=== PATIENT | female | born 1990 | race Caucasian/White ===

== ENCOUNTER 2021-08-27 15:24 | Outpatient (CLI) | payer MEDICAID, SELFPAY ==
[2021-08-27 17:20] LABS: HCG Quant, Pregnancy 6239 mIU/mL (1-3)
[2021-08-27 17:37] LABS: FREE T4 0.64 ng/dL (0.76-1.46)
== END 2021-08-27 15:25 | disposition home or self-care (01) ==
LOC: LBO 15:24
PROVIDERS: Visit Provider Nurse Practitioner Women's Health
DX: O20.9 Hemorrhage in early pregnancy, unspecified (principal); E06.3 Autoimmune thyroiditis
CPT/HCPCS: 36415; 84439; 84443; 84702

== ENCOUNTER 2021-08-29 12:44 | Emergency (ER) | payer MEDICAID, SELFPAY ==
[2021-08-29 12:51] VITALS: BP 128/81; PULSE 78; RESP 16; TEMP 36.5; O2SAT 98
--- NOTE | 2021-08-29 13:00 | DI.US_ITS ---
Exam(s) US OB TRANSVAGINAL EXAM: US OB TRANSVAGINAL INDICATION: 8 wk GA, pelvic pain. COMPARISON: No exams were available for comparison TECHNIQUE: Transabdominal and transvaginal pelvic ultrasound were FINDINGS: There is intrauterine gestational sac contains a 3 millimeter yolk sac and pole exhibiting hughes n-rump length 3.6 millimeters correspond to 6 weeks. heart rate was recorded at 102 BPM. No evidence of obvious subchorionic hemorrhage. Maternal ovaries appear unremarkable. There is no fluid in the cul-de-sac. IMPRESSION: Viable intrauterine gestation as described above, approximately 6 weeks gestational age.
[2021-08-29 13:19] LABS: Abs Immature Grans 0.08 10^3/uL (0.0-0.06); Absolute Basophil Count 0.04 10^3/uL (0.0-0.2); Absolute Eosinophil Count 0.01 10^3/uL (0.0-0.7); Absolute Lymphocyte Count 1.84 10^3/uL (1.2-3.4); Absolute Monocyte Count 0.55 10^3/uL (0.1-0.8); Absolute Neutrophil Count 5.58 10^3/uL (1.2-6.7); Basophils % 0.5; Eosinophils % 0.1; HCT 39.5 % (36.0-46.0); HGB 13.9 g/dL (11.2-15.7); Lymphocytes % 22.7; MCH 33.1 pg (27.0-33.0); MCHC 35.2 % (32.0-36.0); MPV 10.2 fL (8.0-11.0); Monocytes % 6.8; Neutrophils % 68.9; Nucleated RBC 0 %; Platelet Count 256 10^3/uL (130-400); RDW 11.6 % (11.7-14.6); RDW-SD 40.1 fL
[2021-08-29 14:06] LABS: HCG Quant, Pregnancy 9816 mIU/mL (1-3)
--- NOTE | 2021-08-29 14:35 | ED.GENADUL_ITS ---
Discharge Plan Disposition Patient Disposition: HOME Condition: Stable Discharge Details Clinical Impression: Threatened miscarriage in early Primary Care Provider: None,None ED Provider: Radha Strauss Home Meds and New Rx's Prescriptions: Continued diazepam [Valium] 5 mg tablet 5 mg PO TID PRNRF: 0 prenat.vits,parth,vqr-biak-eagty Tablet 1 tab PO DAILY RF: 0 acyclovir 800 mg tablet 800 mg PO DAILY Qty: 90 RF: 3 xrtssturdo-jbvuzhhcfrvbz-zipg [Esgic] 50-325-40 mg capsule 1 cap PO Q6H PRN (Reason: pain) Qty: 14 RF: 1 levothyroxine 50 mcg tablet 50 mcg PO DAILY Qty: 90 RF: 3 Latuda 40 mg tablet 40 mg PO DAILY Qty: 30 RF: 0 lamotrigine 150 mg tablet 150 mg PO DAILY Qty: 30 RF: 0 Discharge Instructions Instructions: Threatened Miscarriage (ED) Additional Instructions: Please return immediately to the emergency department if you develop any new or worsening symptoms, if your condition does not improve as expected, or if you become otherwise concerned. It is extremely important that you call soon as possible to make an appointment to be seen in follow-up for this visit by your slumber room attendant. Referrals: Padmini Beard MD [MD [facility] STAFF PHYSICIAN] - Medical Decision Making More Denny is a 31-year-old woman with a history of Sarah's thyroiditis, bipolar disorder, anxiety, at approximately 8 weeks gestational age by dates presenting to emergency department with abdominal pain, lower back pain, and vaginal bleeding since 08/23/2021. On exam patient is well and nontoxic-appearing. There is no abdominal or pelvic tenderness to palpation. Bedside POCUS FAST exam shows no free fluid, transabdominal ultrasound does show gestational sac with yolk sac noted in uterus. Concern for threatened , doubt ectopic given bedside ultrasound findings. Plan for screening labs, pelvic ultrasound. Exam/history at this time is not consistent with nonobstetric related acute emergent intra-abdominal process, urinary tract infection, sepsis. Labs reviewed, hemoglobin 13.9, blood type O+, beta hCG 9816. I discussed patient presentation results with Dr. Beard of OB, who recommends outpatient follow-up in the next 1 to 2 days with obstetrics, no further immediate recommendations. I had a discussion with Patient regarding return to emergency department precautions, home care, and importance of outpatient follow-up. Pt verbalizes understanding of the plan and is amenable. Patient discharged to home with clear plan for outpatient follow-up. All questions were answered. Disposition decision was made weighing the risks and benefits of hospitalization versus outpatient treatment, the risk for further decompensation, and the patient's wishes. Medical Records Medical records reviewed: Yes I reviewed the patient's medical records. Imaging Data Radiologic Study: Attestation: I personally reviewed and interpreted this imaging study as follows: Radiologist's impression: EXAM: US OB TRANSVAGINAL INDICATION: 8 wk GA, pelvic pain. COMPARISON: No exams were available for comparison TECHNIQUE: Transabdominal and transvaginal pelvic ultrasound were FINDINGS: There is intrauterine gestational sac contains a 3 millimeter yolk sac and pole exhibiting crown-rump length 3.6 millimeters correspond to 6 weeks. heart rate was recorded at 102 BPM. No evidence of obvious subchorionic hemorrhage. Maternal ovaries appear unremarkable. There is no fluid in the cul-de-sac. IMPRESSION: Viable intrauterine gestation as described above, approximately 6 weeks gestational age. Lab Data Lab results reviewed: Yes I reviewed the patient's lab results. Labs: Laboratory Tests Range/Units 08/29/21 08/29/21 08/29/21 13:12 13:12 13:12 WBC (4.4-10.8) 10^3/uL 8.10 RBC (3.93-5.22) 10^6/uL 4.20 Hgb (11.2-15.7) g/dL 13.9 Hct (36.0-46.0) % 39.5 MCV (80-95) fL 94.0 MCH (27.0-33.0) pg 33.1 H MCHC (32.0-36.0) % 35.2 RDW (11.7-14.6) % 11.6 L Plt Count (130-400) 10^3/uL 256 MPV (8.0-11.0) fL 10.2 Immature Gran % 1.0 Neutrophils % 68.9 Lymphocytes % 22.7 Monocytes % 6.8 Eosinophils % 0.1 Basophils % 0.5 Nucleated RBC % % 0 Absolute Neutrophils (1.2-6.7) 10^3/uL 5.58 Absolute Lymphocytes (1.2-3.4) 10^3/uL 1.84 Absolute Monocytes (0.1-0.8) 10^3/uL 0.55 Absolute Eosinophils (0.0-0.7) 10^3/uL 0.01 Absolute Basophils (0.0-0.2) 10^3/uL 0.04 Beta HCG, Quant (1-3) mIU/mL 9816 H Patient ABO/Rh O Positive Antibody Screen NEGATIVE HPI General Mode of arrival: ambulatory . Date/Time Provider Initiated Documentation: 08/29/21 12:44 . Limitations to Documentation: no limitations . Information obtained by: patient, family, RN notes reviewed and old records reviewed . HPI Narrative: More Denny is a 31-year-old woman with a history of Sarah's thyroiditis, bipolar disorder, anxiety, at approximately 8 weeks gestational age by dates presenting to emergency department with abdominal pain. Patient reports that she has had spotting, lower back pain, and lower abdominal pain since 08/23/2021. Patient saw OB on 08/27/2021, where she had beta hCG (level was 6239). Patient has not had an ultrasound. Patient reports that pain has persisted, and she is passing very small clots. She reports that bleeding is still white. Patient reports that she is unsure if pain is worsening, but it has not decreased at all. She denies any other pain, vomiting, diarrhea, numbness, weakness, fever, shortness of breath, cough, rash. Patient was recently started on levothyroxine for hypothyroidism. Related Data Home Medications Medication Instructions Recorded Confirmed acyclovir 800 mg tablet 800 mg PO DAILY #90 tab 08/27/21 08/27/21 kebsodizdb-cecudjxfvufcu-fjgxengr 1 cap PO Q6H PRN #14 cap 08/27/21 08/29/21 50 mg-325 mg-40 mg capsule diazepam 5 mg tablet 5 mg PO TID PRN 08/27/21 08/29/21 prenat.vits,parth,fdd-pkwt-smaiu 1 tab PO DAILY 08/27/21 08/29/21 lamotrigine 150 mg tablet 150 mg PO DAILY #30 tab 08/28/21 08/29/21 levothyroxine 50 mcg tablet 50 mcg PO DAILY #90 tab 08/28/21 08/29/21 lurasidone 40 mg tablet 40 mg PO DAILY #30 tab 08/28/21 08/29/21 Previous Rx's Medication Instructions Recorded acyclovir 800 mg tablet 800 mg PO DAILY #90 tab 08/27/21 yujsowdqwm-crtkubhzhnchr-hvzltlaz 1 cap PO Q6H PRN #14 cap 08/27/21 50 mg-325 mg-40 mg capsule lamotrigine 150 mg tablet 150 mg PO DAILY #30 tab 08/28/21 levothyroxine 50 mcg tablet 50 mcg PO DAILY #90 tab 08/28/21 lurasidone 40 mg tablet 40 mg PO DAILY #30 tab 08/28/21 Allergies Allergy/AdvReac Type Severity Reaction Status Date / Time No Known Allergies Allergy Verified 08/29/21 12:58 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 Review of Systems Narrative: Constitutional: denies fevers Eyes: denies eye pain ENT: denies ear pain, dental pain, sore throat Cardiovascular: denies chest pain Respiratory: denies SOB, cough GI: denies vomiting, diarrhea, reports lower abdominal cramping : denies flank pain, dysuria, reports vaginal bleeding MSK: denies neck pain, arthralgias, myalgias, reports lower back pain Skin: denies rash Neuro: denies headaches, numbness, weakness PFSH All Active Problems (Updated 08/29/21 @ 14:29 by Radha Strauss MD) Threatened miscarriage in early (Acute) Early stage of (Acute) Anxiety (Chronic) Bipolar I disorder (Acute) Sarah's thyroiditis (Acute) Medical History History of abnormal cervical Pap smear Surgical History H/O dilation and curettage Social History Smoking/Tobacco Use Status: Current every day Tobacco Type: e-cigarettes Quit status: considering quitting Smoking risk assessment performed?: Yes Alcohol Intake: never Drug use: Occasionally Substance use type: marijuana Sexually active: Yes Do you think of yourself as: straight/heterosexual Current gender identity: female Female Reproductive History Menstrual control method: none History History 4 Para 3 Hx # Term Pregnancies Multiple births Hx # Pregnancies Ectopic pregnancies AB induced 1 Hx Number of Living Children AB spontaneous Exam Narrative Exam Narrative: Constitutional: well and mqa-qrfnq-ceqtlkrhh, pleasant, conversing normally HENT: head atraumatic/normocephalic/normal inspection, mucous membranes moist Eyes: conjunctiva normal, sclera normal, pupils 3mm b/l Neck: no stridor, normal ROM, trachea midline Resp: normal work of breathing, speaking in full sentences Cardio: normal rate, normal rhythm, no murmur appreciated GI: abdomen soft, non-tender, non-distended Skin: warm, dry, normal color, no rash Neuro: alert, not altered, grossly non-focal, normal tone Ext: no edema Psych: normal mood, normal affect, normal behavior Course Vital Signs Vital signs: Vital Signs Temperature 36.5 C 08/29/21 12:51 Pulse 78 08/29/21 12:51 Respiratory Rate 16 08/29/21 12:51 Blood Pressure 128/81 08/29/21 12:51 Pulse Oximetry 98 08/29/21 12:51 Temperature 36.5 C 08/29/21 12:51 Temperature Source Skin 08/29/21 12:51 Pulse 78 08/29/21 12:51 Respiratory Rate 16 08/29/21 12:51 Respiratory Effort 08/29/21 12:51 Blood Pressure 128/81 08/29/21 12:51 Blood Pressure Position Supine 08/29/21 12:51 Pulse Oximetry 98 08/29/21 12:51 Oxygen Delivery Method Room Air 08/29/21 12:51 Oxygen Flow Rate 0 08/29/21 12:51 Pain Level 7 08/29/21 12:51 Lab/Test Results Lab/Test Results: Laboratory Tests Range/Units 08/29/21 08/29/21 08/29/21 13:12 13:12 13:12 WBC (4.4-10.8) 10^3/uL 8.10 RBC (3.93-5.22) 10^6/uL 4.20 Hgb (11.2-15.7) g/dL 13.9 Hct (36.0-46.0) % 39.5 MCV (80-95) fL 94.0 MCH (27.0-33.0) pg 33.1 H MCHC (32.0-36.0) % 35.2 RDW (11.7-14.6) % 11.6 L Plt Count (130-400) 10^3/uL 256 MPV (8.0-11.0) fL 10.2 Immature Gran % 1.0 Neutrophils % 68.9 Lymphocytes % 22.7 Monocytes % 6.8 Eosinophils % 0.1 Basophils % 0.5 Nucleated RBC % % 0 Absolute Neutrophils (1.2-6.7) 10^3/uL 5.58 Absolute Lymphocytes (1.2-3.4) 10^3/uL 1.84 Absolute Monocytes (0.1-0.8) 10^3/uL 0.55 Absolute Eosinophils (0.0-0.7) 10^3/uL 0.01 Absolute Basophils (0.0-0.2) 10^3/uL 0.04 Beta HCG, Quant (1-3) mIU/mL 9816 H Patient ABO/Rh O Positive Antibody Screen NEGATIVE
[2021-08-29 14:45] VITALS: BP 128/81; PULSE 78; RESP 16; TEMP 36.5; O2SAT 98
== END 2021-08-29 14:47 | disposition home or self-care (01) ==
PROVIDERS: Emergency Provider Student in an Organized Health Care Education/Training Program
DX: O20.0 Threatened abortion (principal); Z3A.08 8 weeks gestation of pregnancy
CPT/HCPCS: 86850; 86900; 86901; 99284; 76817; 84702; 85025; 99283

== ENCOUNTER 2021-08-31 09:52 | Outpatient (CLI) | payer MEDICAID, SELFPAY ==
[2021-08-31 10:41] LABS: HCG Quant, Pregnancy 15707 mIU/mL (1-3)
== END 2021-08-31 09:53 | disposition home or self-care (01) ==
LOC: LBO 09:52
PROVIDERS: Visit Provider Obstetrics & Gynecology
DX: O20.0 Threatened abortion (principal)
CPT/HCPCS: 36415; 84702

== ENCOUNTER 2021-09-03 10:12 | Outpatient (CLI) | payer MEDICAID, SELFPAY | END 2021-09-03 10:13 | disposition home or self-care (01) | PROVIDERS: Visit Provider Obstetrics & Gynecology | DX: O26.851 Spotting complicating pregnancy, first trimester (principal); Z3A.10 10 weeks gestation of pregnancy | CPT/HCPCS: 36415; 84702 ==

== ENCOUNTER 2021-10-09 04:02 | Outpatient (CLI) | payer MEDICAID, SELFPAY ==
[2021-10-09 11:31] LABS: Kit/Specimen SENT
[2021-10-09 12:01] LABS: Abs Immature Grans 0.07 10^3/uL (0.0-0.06); Absolute Basophil Count 0.03 10^3/uL (0.0-0.2); Absolute Eosinophil Count 0.01 10^3/uL (0.0-0.7); Absolute Lymphocyte Count 1.77 10^3/uL (1.2-3.4); Absolute Neutrophil Count 5.75 10^3/uL (1.2-6.7); Basophils % 0.4; Eosinophils % 0.1; HCT 38.2 % (36.0-46.0); HGB 13.6 g/dL (11.2-15.7); Immature Grans % 0.8; Lymphocytes % 21.2; MCH 32.6 pg (27.0-33.0); MCHC 35.6 % (32.0-36.0); MCV 91.6 fL (80-95); MPV 10.7 fL (8.0-11.0); Monocytes % 8.4; Neutrophils % 69.1; Nucleated RBC 0 %; Platelet Count 234 10^3/uL (130-400); RBC 4.17 10^6/uL (3.93-5.22); RDW 11.7 % (11.7-14.6); WBC 8.33 10^3/uL (4.4-10.8)
[2021-10-09 12:02] LABS: Glucose,1 Hr (Glucola) 92 mg/dL (80-140)
[2021-10-09 13:34] LABS: FREE T4 0.81 ng/dL (0.76-1.46); TSH 4.65 uIU/mL (0.36-3.74)
[2021-10-10 09:45] LABS: Hepatitis B Surface Ag Negative (Negative)
[2021-10-10 09:57] LABS: Hepatitis C Ab w Rflx HCV PCR Negative (Negative)
[2021-10-10 10:12] LABS: HIV-1/2 Ag & Ab Screen Negative (Negative)
[2021-10-10 10:45] LABS: Rubella IgG Ab (UVM) Positive (See Note); Varicella IgG Antibody Positive (See Note)
[2021-10-16 17:03] LABS: Result Summary NEGATIVE; Specimen WB Whole Blood
[2021-10-24 15:10] LABS: Syphilis IgG w/Reflex Nonreactive (Nonreactive)
== END 2021-10-09 04:03 | disposition home or self-care (01) ==
LOC: LBO 04:02
PROVIDERS: Advanced Practice Midwife; Visit Provider Advanced Practice Midwife
DX: Z34.91 Encounter for supervision of normal pregnancy, unspecified, first trimester
CPT/HCPCS: 82950; 86787; 86803; 86850; 86900; 86901; 87340; 87389; 81220; 84439; 84443; 85025; 86762; 86780

== ENCOUNTER 2021-10-09 11:59 | Outpatient (REF) | payer MEDICAID, SELFPAY ==
--- NOTE | 2021-10-09 10:30 | PAPFT_PTH ---
PATIENT: More Denny LOC: [facility] U#:[id number] AGE/SX: 31/F ROOM: RE10/09/[address]: Karen Ryan CNM : 1990 BED: DIS: 10/09/2021 SPEC #: [id number] RECD: 10/09/21 12:34 STATUS: ANITA REMeg #: [id number] JESUS MANUEL: 10/09/21 10:[address]: Karen Ryan DEPT: [facility] Cytology RECD BY: Vielka Ya ENTERED: 10/09/21 12:34 SP TYPE: PAPFT OT DR: None Tissues: 1 - CX/ENDOCX FOR PAP SMEARS Procedures: PAP THIN PREP/UVM Screening HPV DNA PROBE Comments: [id number]
[2021-10-09 15:48] LABS: *AMPHETAMINES SCREEN URINE Negative (Negative); *BARBITURATES SCREEN URINE Negative (Negative); *BENZODIAZEPINES SCREEN URINE Negative (Negative); Cannabinoids THC Negative (Negative); Cocaine Screen,Urine Negative (Negative); METHADONE URINE SCREEN Negative (Negative); OPIATES URINE SCREEN Negative (Negative); Tricyclic Antidepressants Negative (Negative)
[2021-10-11 07:48] LABS: Chlamydia Result Negative (Negative); GC Result Negative (Negative)
[2021-10-13 15:30] LABS: Buprenorphine Negative ng/mL (Cutoff: 5.0); Norbuprenorphine Negative ng/mL (Cutoff: 2.5)
== END 2021-10-09 12:00 | disposition home or self-care (01) ==
LOC: LBN 11:59
PROVIDERS: Advanced Practice Midwife; Visit Provider Advanced Practice Midwife
DX: Z34.91 Encounter for supervision of normal pregnancy, unspecified, first trimester; Z12.4 Encounter for screening for malignant neoplasm of cervix; Z11.51 Encounter for screening for human papillomavirus (HPV)
CPT/HCPCS: 80307; 87491; 87591; 88142; 87086; 87480; 87510; 87624; 87660

== ENCOUNTER 2021-11-06 03:45 | Outpatient (CLI) | payer MEDICAID, SELFPAY ==
[2021-11-06 17:30] LABS: Thyroperoxidase Antibody >1300 U/mL (<=60)
[2021-11-07 08:38] LABS: Von Willebrand Factor Antigen 103 % (50-185)
[2021-11-07 15:28] LABS: AFP 26.6 ng/mL; GA used in risk estimate Scan estimate; IVF Pregnancy No; Initial or repeat testing Initial testing; Insulin dependent diabetes No; Maternal Weight 229 lbs; Number of Fetuses 1; Physician Phone Number 802-748-7300; Prev Pregnancy w/NTD No; RECOMMENDED FOLLOW UP None.; Results Summary Normal risk
== END 2021-11-06 03:46 | disposition home or self-care (01) ==
PROVIDERS: Advanced Practice Midwife; Visit Provider Advanced Practice Midwife
DX: E06.3 Autoimmune thyroiditis (principal); Z34.92 Encounter for supervision of normal pregnancy, unspecified, second trimester; Z83.2 Family history of diseases of the blood and blood-forming organs and certain disorders involving the immune mechanism
CPT/HCPCS: 36415; 85245; 85246; 82105; 84443; 86376

== ENCOUNTER 2021-12-03 01:52 | Outpatient (CLI) | payer MEDICAID, SELFPAY ==
--- NOTE | 2021-12-03 06:30 | DI.US_ITS ---
Exam(s) US OB 2-3 TRIMESTER W MOD EXAM: US OB 2-3 TRIMESTER W MOD CLINICAL HISTORY: , survey,[id number]. TECHNIQUE: Transabdominal obstetrical ultrasound was performed. COMPARISON: US US OB TRANSVAGINAL from 08/29/2021 FINDINGS: There is a single viable intrauterine gestation with cardiac activity identified-150 BPM. Fetu s is presently in cephalic position. There is normal amount of amniotic fluid. Placenta is mostly a nterior fundal, grade 0-1, with no evidence of placenta previa. The distance between the tip of the placenta and the internal cervical os is 5.4 cm on today's study. There is a marginal placenta cord insertion (1.8 cm) Dating parameters places at approximately 20 weeks and 2 days gestational age, implying BUFFY of April 20, 2022. BPD measures 20 weeks and 2 days Head circumference measures 20 weeks and 0 days Abdominal circumference measures 20 weeks and 3 days Femur length measures 20 weeks and 3 days A three-vessel umbilical cord was identified. It exhibits a somewhat marginal placental insertion (1 .8 cm). Estimated weight is 349 grams (0 pounds 12 ounces). Fetus is at the 95th percentile on the Hadlock scale MORPHOLOGY: A four-chamber cardiac view was obtained. Right and left ventricular outflow tracts were obtained. Satisfactory aortic arch image also obtained. No significant intracranial findings. No cord plexus. No abnormality in the posterior fossa. facial profile was seen. Difficult to visualize the nose and upper lip region. No obvious abnormality the spinal column. stomach and bladder is seen. No obvious hydronephrosis. IMPRESSION: 1. Single viable intrauterine gestation which is approximately 20 weeks and 2 days gestational age by ultrasound dating, implying BUFFY of April 20, 2022. Fetus is presently at the 95th percentile 2. No significant anomalies evident. 3. Fundal placenta. No previa. DATA REPOSITORY:
== END 2021-12-03 02:12 ==
PROVIDERS: Visit Provider Advanced Practice Midwife
DX: Z34.92 Encounter for supervision of normal pregnancy, unspecified, second trimester (principal); Z3A.20 20 weeks gestation of pregnancy
CPT/HCPCS: 76805

== ENCOUNTER 2021-12-10 01:06 | Outpatient (CLI) | payer MEDICAID, SELFPAY ==
--- NOTE | 2021-12-10 07:00 | DI.US_ITS ---
Exam(s) US OB F/U FACIAL/LVOT/RVOT EXAM: US OB F/U FACIAL/LVOT/RVOT CLINICAL HISTORY: f/u low lying placenta,nose,lips,4 chamber heart. COMPARISON: US US OB 2-3 TRIMESTER W MOD from 12/03/2021 TECHNIQUE: Transabdominal Transvaginal first trimester obstetrical ultrasound performed. FINDINGS: Sonographic images demonstrate a single intrauterine gestation in cephalic position.. Placenta is posterior. Cord insertion measurements to the placenta margin is 1.4 to 1.9 cm he art rate motion is Dopplered at: 155 bpm. RVOT: Unremarkable. LVOT: Unremarkable. nose/lips: Unremarkable. Amniotic fluid: Amount of fluid is visually within normal limits. IMPRESSION: face and heart show no discernible abnormality. Cord insertion at the placenta 1.4-1.9 cm from the placental margin. DATA REPOSITORY:
== END 2021-12-10 01:26 ==
PROVIDERS: Visit Provider Advanced Practice Midwife
DX: O44.42 Low lying placenta NOS or without hemorrhage, second trimester (principal); Z3A.19 19 weeks gestation of pregnancy
CPT/HCPCS: 76815

== ENCOUNTER 2021-12-10 03:47 | Outpatient (CLI) | payer MEDICAID, SELFPAY ==
[2021-12-10 14:58] LABS: FREE T4 0.88 ng/dL (0.76-1.46); TSH 3.73 uIU/mL (0.36-3.74)
[2021-12-10 15:12] LABS: Vitamin D 25 Total 26.4 ng/mL (30-100)
== END 2021-12-10 03:48 | disposition home or self-care (01) ==
LOC: LBO 03:47
PROVIDERS: Visit Provider Advanced Practice Midwife
DX: E06.3 Autoimmune thyroiditis (principal)
CPT/HCPCS: 36415; 82306; 84439; 84443

== ENCOUNTER 2021-12-26 08:33 | Outpatient (CLI) | payer MEDICAID, SELFPAY ==
[2021-12-26 10:10] VITALS: BP 137/87; PULSE 93; RESP 18; TEMP 36.4; O2SAT 97
[2021-12-26 11:20] VITALS: BP 132/82; PULSE 88; RESP 20; TEMP 36.1; O2SAT 94
== END 2021-12-26 08:34 | disposition home or self-care (01) ==
LOC: INF 08:35
PROVIDERS: Visit Provider Family Medicine
DX: U07.1 COVID-19 (principal)
CPT/HCPCS: 96365; 96374; Q0222

== ENCOUNTER 2021-12-29 20:33 | Emergency (ER) | payer MEDICAID, SELFPAY ==
[2021-12-29] VITALS (35 sets, daily range): BP systolic 121–164; BP diastolic 54–91; PULSE 77–103; RESP 14–38; TEMP 36.7; O2SAT 96–100
--- NOTE | 2021-12-29 20:30 | RT.EKG_ITS ---
APPROVED REPORT Exam: Resting ECG Reason for Exam: chest pain Patient Location: E HR:96 bpm ECG Measurements Heart Rate 96 AXIS MD 161 P 22 QRSd 94 QRS 67 QT 363 T -7 QTc 460 Conclusion Sinus rhythm...normal P axis, V-rate 60- 99 Probable left atrial enlargement...P >50mS, <-0.10mV V1 Physician: No STEMI, Q wave and inverted T wave presented in III. No significant ST elevation or depr essions
[2021-12-29 21:13] LABS: Absolute Basophil Count 0.05 10^3/uL (0.0-0.2); Absolute Eosinophil Count 0.01 10^3/uL (0.0-0.7); Absolute Lymphocyte Count 2.45 10^3/uL (1.2-3.4); Absolute Monocyte Count 0.99 10^3/uL (0.1-0.8); Absolute Neutrophil Count 6.41 10^3/uL (1.2-6.7); Basophils % 0.5; Eosinophils % 0.1; HCT 34.2 % (36.0-46.0); HGB 12.1 g/dL (11.2-15.7); Immature Grans % 2.9; MCH 32.8 pg (27.0-33.0); MCHC 35.4 % (32.0-36.0); MCV 92.7 fL (80-95); Monocytes % 9.7; Neutrophils % 62.8; Platelet Count 241 10^3/uL (130-400); RBC 3.69 10^6/uL (3.93-5.22); RDW 11.9 % (11.7-14.6); WBC 10.21 10^3/uL (4.4-10.8)
[2021-12-29] MEDS: Acetaminophen 325 MG TAB 650 MG PO (21:17)
[2021-12-29] MEDS: Normal Saline 1,000 ML 1000 ML IV (21:17)
[2021-12-29] MEDS: MORPHine 4 MG/ML SYR IVP (21:17)
[2021-12-29 21:35] LABS: ALT 14 U/L (14-59); AST 11 U/L (15-37); Albumin 3.1 g/dL (3.4-5.0); Alkaline Phosphatase 56 U/L (46-116); Anion Gap 9.8 mmol/L (3-11); BUN 10 mg/dL (7-18); Bilirubin, Total 0.2 mg/dL (0.2-1.0); CO2 23.2 mmol/L (21.0-32.0); CREATININE 0.6 mg/dL (0.55-1.02); Calcium 8.2 mg/dL (8.5-10.1); Chloride 104 mmol/L (98-107); Glucose 106 mg/dL (74-106); Lipase 108 U/L (73-393); NT-proBNP 25 pg/mL (<300); Potassium 3.5 mmol/L (3.5-5.1); Sodium 137 mmol/L (136-145); Total Protein 6.7 g/dL (6.4-8.2)
[2021-12-29 22:05] LABS: D-Dimer 316 ng/mlFEU (<500)
[2021-12-29 22:18] LABS: Bilirubin Negative (Negative); Blood Negative (Negative); Clarity Clear (Clear); Glucose Negative (Negative); Ketones Negative (Negative); Leukocyte Esterase Negative (Negative); Nitrite Negative (Negative); Specific Gravity 1.015 (1.005-1.025); Urobilinogen 0.2 EU/dL (Up TO 0.2)
--- NOTE | 2021-12-29 22:34 | ED.GENADUL_ITS ---
Discharge Plan Disposition Patient Disposition: HOME Condition: Stable Discharge Details Clinical Impression: Chest pain, Pneumonia Primary Care Provider: Unknown,Unknown ED Provider: Tyrone Laws Home Meds and New Rx's Prescriptions: New azithromycin 250 mg tablet 250 mg PO DAILY 90 Days Qty: 3 0RF Continued mztorlrxel-lxhllpyynqoyy-biwt [Fioricet] 50-300-40 mg capsule 1 cap PO Q8H PRN (Reason: pain) Qty: 14 0RF prenat.vits,parth,tfa-cszb-qhxey Tablet 1 tab PO DAILY 0RF acyclovir 800 mg tablet 800 mg PO DAILY Qty: 90 3RF Latuda 40 mg tablet 40 mg PO DAILY Qty: 30 0RF Rx Instructions: must administer with food (at least 350 calories) lamotrigine 150 mg tablet 150 mg PO DAILY Qty: 30 0RF levothyroxine 50 mcg tablet 100 mcg PO DAILY 0RF albuterol sulfate [ProAir HFA] 90 mcg/actuation HFA aerosol inhaler 2 puff inhalation QID PRN (Reason: shortness of breath or wheezing) Qty: 6.7 4RF Discharge Instructions Instructions: Chest Pain (ED), Pneumonia (ED) Additional Instructions: Take Tylenol as needed for pain Follow-up with your [facility] on Friday Follow-up with your primary care physician on Friday Please return earlier should you have new or worsening complaints repeat blood pressure at you appt this week Discharge Data Discharge Date/Time-TO BE ENTERED AT DEPARTURE: 12/30/21 01:19 Medical Decision Making Patient appears well, her chart is acute Her D-dimer is negative and patient is not hypoxic, tachypneic, or tachycardic Initially blood pressure elevated, this is improved care discussed with landon Lizarraga for office reassessment No proteinuria No indication for CT imaging at this time in fact I think the risk outweighs the benefit I did consider coronary artery disease, however patient is 31 and otherwise fairly healthy with a heart score of 2, will perform 2 troponins given her family history and discharged home for close outpatient follow-up Her chest x-ray shows evidence of bilateral infiltrates, this could be Covid related however we will treat her with azithromycin given the persistence of her symptoms and her negative Covid test 2 days prior to arrival today She does not have medically vaginal bleeding or abdominal pain, FHR [address] Laws pending repeat troponin and EKG at 12 am Medical Records Medical records reviewed: Yes I reviewed the patient's medical records. Lab Data Lab results reviewed: Yes I reviewed the patient's lab results. HPI General Date/Time Provider Initiated Documentation: 12/29/21 21:01 . HPI Narrative: This 31-year-old female who is 23 weeks presents with report of left- sided chest pain that began 1:00 today while she was eating. She states she feels mildly short of breath secondary to inability to take a deep inspiration. She denies any radiation. She denies any fever or chills. She denies any nausea or vomiting. She denies any calf pain or swelling. Denies prior history of similar symptoms in the past. She is 5 para 4. She denies any hemoptysis. She denies any recent flights, surgeries, long drives. She has a history of asthma and presents. Related Data Home Medications Medication Instructions Recorded Confirmed acyclovir 800 mg tablet 800 mg PO DAILY #90 tab 08/27/21 12/29/21 prenat.vits,parth,azk-folp-odnrx 1 tab PO DAILY 08/27/21 12/29/21 lamotrigine 150 mg tablet 150 mg PO DAILY #30 tab 08/28/21 12/29/21 lurasidone 40 mg tablet (Latuda) 40 mg PO DAILY #30 tab 08/28/21 12/29/21 levothyroxine 50 mcg tablet 100 mcg PO DAILY tab 11/06/21 12/29/21 butjyupyms-kkcsjeczcctzp-gghxakwm 1 cap PO Q8H PRN #14 cap 12/05/21 12/29/21 50 mg-300 mg-40 mg capsule (Fioricet) albuterol sulfate 90 mcg/actuation 2 puff INHALATION QID PRN #6.7 g 12/25/21 12/29/21 aerosol inhaler (ProAir HFA) azithromycin 250 mg tablet 250 mg PO DAILY 90 Days #3 tab 12/29/21 Previous Rx's Medication Instructions Recorded acyclovir 800 mg tablet 800 mg PO DAILY #90 tab 08/27/21 lamotrigine 150 mg tablet 150 mg PO DAILY #30 tab 08/28/21 lurasidone 40 mg tablet (Latuda) 40 mg PO DAILY #30 tab 08/28/21 hjvplvyqjy-rdpuipcwqpnwj-fyiqgcrr 1 cap PO Q8H PRN #14 cap 12/05/21 50 mg-300 mg-40 mg capsule (Fioricet) albuterol sulfate 90 mcg/actuation 2 puff INHALATION QID PRN #6.7 g 12/25/21 aerosol inhaler (ProAir HFA) azithromycin 250 mg tablet 250 mg PO DAILY 90 Days #3 tab 12/29/21 Allergies Allergy/AdvReac Type Severity Reaction Status Date / Time No Known Allergies Allergy Verified 12/29/21 20:52 General Stated Complaint: Chest Pain COREY: 2 Review of Systems All systems reviewed & are unremarkable except as noted in HPI and below PFSH All Active Problems (Updated 12/29/21 @ 23:36 by ANGY Ge) Chest pain (Acute) Pneumonia (Acute) COVID-19 affecting in second trimester (Acute) Low lying placenta nos or without hemorrhage, second trimester (Acute) Anti-TPO antibodies present (Acute) 18 weeks gestation of (Acute) History of migraine (Acute) Marijuana smoker (Acute) Family history of von Willebrand disease (Acute) Genital herpes simplex virus (HSV) infection in mother affecting (Acute) (Acute) BMI 33.0-33.9,adult (Acute) Asthma (Chronic) using inhaler PRN. Threatened miscarriage in early (Acute) Anxiety (Chronic) Bipolar I disorder (Acute) Sarah's thyroiditis (Acute) diagnosed 2020 Medical History (Updated 12/29/21 @ 23:36 by ANGY Ge) History of abnormal cervical Pap smear Surgical History H/O dilation and curettage Family History (Updated 12/06/21 @ 12:07 by Ibeth Christianson CNM) Son Von Willebrands disease Social History Smoking/Tobacco Use Status: Former Tobacco Use Quit status: considering quitting Smoking risk assessment performed?: Yes Alcohol Intake: never Drug use: Occasionally Substance use type: marijuana Details: No current tobacco use. No marijuana use currently. Sexually active: Yes Do you think of yourself as: straight/heterosexual Current gender identity: female Do you feel safe at home: Yes Do you feel safe in your relationship?: Yes Female Reproductive History Menstrual control method: none History History 5 Para 3 Hx # Term Pregnancies 3 Multiple births 0 Hx # Pregnancies 0 Ectopic pregnancies 0 AB induced 1 Hx Number of Living Children 3 AB spontaneous 0 Past Pregnancies Del. Date GA/Weeks # Outcome Route Wgt Sex Labor Lgth Anesthes ia Location Prov Complic 10/15/07 39 No Successful vaginal 3855.535 g Male 24 hours regional [place] 10/11/10 39 No Successful vaginal 4422.526 g Male 16 regional [place] hem orrhage 11/11/15 38 No Successful vaginal 3940.584 g Female 12 regional [place] Delivery Date: 10/15/07 Last Updated by: Ibeth Christianson CNM [place] Delivery Date: 10/11/10 Last Updated by: Ibeth Christianson CNM hemorrhage, blood transfusion, Jacinto. he has Von Willebrands Delivery Date: 11/11/15 Last Updated by: Ibeth Christianson CNM Leigh Exam Const General: cooperative and comfortable Orientation: alert and oriented x3 HENMT Head: normal to inspection Mouth: oral mucosae normal Eyes Pupils: PERRL Chest Other: no crepitus no rashes Chest/axillae images: 1. Reproducible tenderness Resp Effort & Inspection: normal respiratory effort Auscultation: clear to auscultation bilaterally Cardio Rate: regular rate Rhythm: regular rhythm GI Inspection: normal to inspection Other: non-tender abdominal exam Skin General skin exam: no rashes or lesions noted Neuro General: patient alert and patient oriented x3 Extrem Other: no calf swelling or tenderness, distal pulses intact Course Vital Signs Vital signs: Vital Signs Temperature 36.7 C 12/29/21 20:44 Pulse 98 H 12/29/21 20:44 Respiratory Rate 19 12/29/21 20:44 Blood Pressure 164/91 H 12/29/21 20:44 Pulse Oximetry 98 12/29/21 20:44 Temperature 36.7 C 12/29/21 20:44 Temperature Source Skin 12/29/21 20:44 Pulse 89 12/29/21 21:46 Pulse 84 12/29/21 21:50 Respiratory Rate 23 12/29/21 21:50 Respiratory Effort Short of Breath 12/29/21 20:47 Respiratory Depth Normal 12/29/21 20:47 Respiratory Pattern Normal 12/29/21 20:47 Blood Pressure 145/67 H 12/29/21 21:46 Blood Pressure Mean 84 12/29/21 21:46 Blood Pressure Position Supine 12/29/21 20:44 Pulse Oximetry 99 12/29/21 21:50 Oxygen Delivery Method Room Air 12/29/21 20:44 Oxygen Flow Rate 0 12/29/21 20:44 Pain Level 7 12/29/21 21:17 Lab/Test Results Lab/Test Results: Laboratory Tests Range/Units 12/29/21 12/29/21 12/29/21 21:00 21:00 21:00 WBC (4.4-10.8) 10^3/uL 10.21 RBC (3.93-5.22) 10^6/uL 3.69 L Hgb (11.2-15.7) g/dL 12.1 Hct (36.0-46.0) % 34.2 L MCV (80-95) fL 92.7 MCH (27.0-33.0) pg 32.8 MCHC (32.0-36.0) % 35.4 RDW (11.7-14.6) % 11.9 Plt Count (130-400) 10^3/uL 241 MPV (8.0-11.0) fL 11.0 Immature Gran % 2.9 Neutrophils % 62.8 Lymphocytes % 24.0 Monocytes % 9.7 Eosinophils % 0.1 Basophils % 0.5 Nucleated RBC % (0.0-0.3) % 0.0 Absolute Neutrophils (1.2-6.7) 10^3/uL 6.41 Absolute Lymphocytes (1.2-3.4) 10^3/uL 2.45 Absolute Monocytes (0.1-0.8) 10^3/uL 0.99 H Absolute Eosinophils (0.0-0.7) 10^3/uL 0.01 Absolute Basophils (0.0-0.2) 10^3/uL 0.05 D-Dimer (<500) ng/mlFEU 316 Sodium (136-145) mmol/L 137 Potassium (3.5-5.1) mmol/L 3.5 Chloride (98-107) mmol/L 104 Carbon Dioxide (21.0-32.0) mmol/L 23.2 Anion Gap (3-11) mmol/L 9.8 BUN (7-18) mg/dL 10 Creatinine (0.55-1.02) mg/dL 0.6 Estimated GFR/1.73 m2 (mL/min/1.73m2) >= 60.00 Glucose (74-106) mg/dL 106 Calcium (8.5-10.1) mg/dL 8.2 L Total Bilirubin (0.2-1.0) mg/dL 0.2 AST (15-37) U/L 11 L ALT (14-59) U/L 14 Alkaline Phosphatase (46-116) U/L 56 NT-Pro-B Natriuret Pep (<300) pg/mL 25 Total Protein (6.4-8.2) g/dL 6.7 Albumin (3.4-5.0) g/dL 3.1 L Lipase (73-393) U/L 108 Urine Color (Yellow) Urine Clarity (Clear) Urine pH (5-8) Ur Specific [place] (1.005-1.025) Urine Protein (Negative) mg/dL Urine Ketones (Negative) mg/dL Urine Blood (Negative) Urine Nitrite (Negative) Urine Bilirubin (Negative) Urine Urobilinogen (Up TO 0.2) EU/dL Ur Leukocyte Esterase (Negative) Urine Glucose (Negative) mg/dL Range/Units 12/29/21 21:55 WBC (4.4-10.8) 10^3/uL RBC (3.93-5.22) 10^6/uL Hgb (11.2-15.7) g/dL Hct (36.0-46.0) % MCV (80-95) fL MCH (27.0-33.0) pg MCHC (32.0-36.0) % RDW (11.7-14.6) % Plt Count (130-400) 10^3/uL MPV (8.0-11.0) fL Immature Gran % Neutrophils % Lymphocytes % Monocytes % Eosinophils % Basophils % Nucleated RBC % (0.0-0.3) % Absolute Neutrophils (1.2-6.7) 10^3/uL Absolute Lymphocytes (1.2-3.4) 10^3/uL Absolute Monocytes (0.1-0.8) 10^3/uL Absolute Eosinophils (0.0-0.7) 10^3/uL Absolute Basophils (0.0-0.2) 10^3/uL D-Dimer (<500) ng/mlFEU Sodium (136-145) mmol/L Potassium (3.5-5.1) mmol/L Chloride (98-107) mmol/L Carbon Dioxide (21.0-32.0) mmol/L Anion Gap (3-11) mmol/L BUN (7-18) mg/dL Creatinine (0.55-1.02) mg/dL Estimated GFR/1.73 m2 (mL/min/1.73m2) Glucose (74-106) mg/dL Calcium (8.5-10.1) mg/dL Total Bilirubin (0.2-1.0) mg/dL AST (15-37) U/L ALT (14-59) U/L Alkaline Phosphatase (46-116) U/L NT-Pro-B Natriuret Pep (<300) pg/mL Total Protein (6.4-8.2) g/dL Albumin (3.4-5.0) g/dL Lipase (73-393) U/L Urine Color (Yellow) Yellow Urine Clarity (Clear) Clear Urine pH (5-8) 7.0 Ur Specific [place] (1.005-1.025) 1.015 Urine Protein (Negative) mg/dL Negative Urine Ketones (Negative) mg/dL Negative Urine Blood (Negative) Negative Urine Nitrite (Negative) Negative Urine Bilirubin (Negative) Negative Urine Urobilinogen (Up TO 0.2) EU/dL 0.2 Ur Leukocyte Esterase (Negative) Negative Urine Glucose (Negative) mg/dL Negative Sign Out Sign Out Data: Sign Out Comment: pending repeat troponin and dc Last updated by Vielka Urias PA at 12/30/21 00:10
--- NOTE | 2021-12-29 22:42 | DI.RAD_ITS ---
Exam(s) XR CHEST 2V PA LATERAL EXAM: XR CHEST 2V PA LATERAL CLINICAL HISTORY: left sided chest pain. TECHNIQUE: 2D digital imaging was performed. COMPARISON: No exams were available for comparison FINDINGS: 2 views: Heart size is normal. The mediastinum is not widened. Lungs are clear. No infiltrates nor pleural effusions. IMPRESSION: No acute pulmonary findings. DATA REPOSITORY: RADIATION DOSE DELIVERED:
--- NOTE | 2021-12-29 22:57 | DI.VRAD_ITS ---
PROCEDURE INFORMATION: Exam: XR Chest Exam date and time: 12/29/2021 10:39 PM Age: 31 years old Clinical indication: Left-sided; Patient HX: Left sided chest pain. TECHNIQUE: Imaging protocol: XR of the chest. Views: 2 views. COMPARISON: No relevant prior studies available. FINDINGS: Lungs: Lungs are adequately inflated and symmetric. No focal consolidation or pulmonary edema. Pleural spaces: No pleural effusion. No pneumothorax. Heart/Mediastinum: Cardiomediastinal contours within normal limits. Bones/joints: No acute osseous finding. IMPRESSION: No focal/lobar consolidation. Dictated and Authenticated by: Lazaro Loza MD. Ordering:LIZ Vora MD
--- NOTE | 2021-12-29 23:15 | RT.EKG_ITS ---
APPROVED REPORT Exam: Resting ECG Reason for Exam: chest pain Patient Location: E HR:77 bpm ECG Measurements Heart Rate 77 AXIS AZ 183 P 23 QRSd 96 QRS 72 QT 404 T 16 QTc 459 Conclusion Sinus rhythm...normal P axis, V-rate 60- 99 Physician: no stemi, no significant ST elevations or depression
[2021-12-30] VITALS (11 sets, daily range): BP systolic 123–138; BP diastolic 57–69; PULSE 72–88; RESP 16–30; O2SAT 97–99
[2021-12-30] MEDS: Azithromycin 250 MG TAB 500 MG PO (00:15)
[2021-12-30] MEDS: oxyCODONE 5 MG TAB PO (00:20)
[2021-12-30] MEDS: Azithromycin 250 MG TAB PO (00:22)
[2021-12-30 00:41] LABS: Troponin I < 50 ng/L (<or=60)
[2021-12-30 00:55] LABS: Troponin I < 50 ng/L (<or=60)
== END 2021-12-30 01:19 | disposition home or self-care (01) ==
PROVIDERS: Physician Assistant; Emergency Provider Student in an Organized Health Care Education/Training Program
DX: O99.512 Diseases of the respiratory system complicating pregnancy, second trimester (principal); R07.9 Chest pain, unspecified; J18.9 Pneumonia, unspecified organism; Z3A.23 23 weeks gestation of pregnancy
CPT/HCPCS: 80053; 83690; 93005; 96361; 96374; 99284; 71046; 81003; 83880; 84484; 85025; 85379; 93010; J2270

== ENCOUNTER 2022-02-01 00:54 | Outpatient (CLI) | payer MEDICAID, SELFPAY ==
--- NOTE | 2022-02-01 07:45 | DI.US_ITS ---
Exam(s) US OB F/U FACIAL/LVOT/RVOT EXAM: US OB F/U FACIAL/LVOT/RVOT CLINICAL HISTORY: f/up, low lying placenta, O44.42, Z34.90. TECHNIQUE: Transabdominal obstetrical ultrasound performed. COMPARISON: US US OB F/U FACIAL/LVOT/RVOT from 12/10/2021 FINDINGS: Transabdominal obstetrical ultrasound performed. FINDINGS: Number of fetuses: One. position: Cephalic. Placental location: There is a grade 1 posterior and fundal placenta. There is no evidence of previa . The placental tip lies more than 9 cm from the internal os. The placental cord insertion site lie s 2.4 cm from the margin of the placenta. Heart Rate: 143BPM Amniotic fluid index: Visually, amount of fluid is within normal limits. IMPRESSION: 1. Single live intrauterine gestation as above. 2. There is no evidence of placenta previa. 3. The cord insertion site is 2.4 cm from the placental margin. DATA REPOSITORY:
== END 2022-02-01 01:14 ==
PROVIDERS: Visit Provider Advanced Practice Midwife
DX: O44.42 Low lying placenta NOS or without hemorrhage, second trimester (principal); Z3A.27 27 weeks gestation of pregnancy
CPT/HCPCS: 76815

== ENCOUNTER 2022-02-01 02:06 | Outpatient (CLI) | payer MEDICAID, SELFPAY ==
[2022-02-01 08:56] LABS: HCT 37.4 % (36.0-46.0); MCH 32.3 pg (27.0-33.0); MCHC 34.8 % (32.0-36.0); MCV 93 fL (80-95); MPV 10.7 fL (8.0-11.0); Platelet Count 209 10^3/uL (130-400); RBC 4.03 10^6/uL (3.93-5.22); RDW 12.3 % (11.7-14.6); RDW-SD 41.8 fL; WBC 10.52 10^3/uL (4.4-10.8)
[2022-02-01 09:03] LABS: Glucose,1 Hr (Glucola) 129 mg/dL (80-140)
[2022-02-01 10:13] LABS: TSH (W/Ref FT4) 1.25 uIU/mL (0.36-3.74)
== END 2022-02-01 02:07 | disposition home or self-care (01) ==
LOC: LBO 02:06
PROVIDERS: Visit Provider Advanced Practice Midwife
DX: Z34.93 Encounter for supervision of normal pregnancy, unspecified, third trimester (principal); Z3A.28 28 weeks gestation of pregnancy
CPT/HCPCS: 36415; 82950; 85027; 84443

== ENCOUNTER 2022-02-01 14:54 | Outpatient (REF) | payer MEDICAID, SELFPAY ==
[2022-02-01 13:54] LABS: *AMPHETAMINES SCREEN URINE Negative (Negative); *BARBITURATES SCREEN URINE Negative (Negative); *BENZODIAZEPINES SCREEN URINE Negative (Negative); Cannabinoids THC Negative (Negative); Cocaine Screen,Urine Negative (Negative); METHADONE URINE SCREEN Negative (Negative); OPIATES URINE SCREEN Negative (Negative)
[2022-02-01 13:58] LABS: Tricyclic Antidepressants Negative (Negative)
[2022-02-07 14:09] LABS: Buprenorphine Negative ng/mL (Cutoff: 5.0); Norbuprenorphine Negative ng/mL (Cutoff: 2.5)
== END 2022-02-01 14:55 | disposition home or self-care (01) ==
LOC: LBN 14:54
PROVIDERS: Visit Provider Advanced Practice Midwife
DX: Z34.93 Encounter for supervision of normal pregnancy, unspecified, third trimester (principal); Z3A.28 28 weeks gestation of pregnancy
CPT/HCPCS: 80307

== ENCOUNTER 2022-03-01 15:16 | Outpatient (CLI) | payer MEDICAID, SELFPAY ==
[2022-03-01 16:01] VITALS: BP 133/69; PULSE 96; TEMP 36.7
[2022-03-01 16:20] VITALS: BP 133/69; PULSE 96
[2022-03-01 16:51] VITALS: BP 130/68; PULSE 91
[2022-03-01 17:10] LABS: MCH 32.9 pg (27.0-33.0); MCHC 36.1 % (32.0-36.0); MCV 91 fL (80-95); MPV 10.9 fL (8.0-11.0); Platelet Count 201 10^3/uL (130-400); RBC 3.95 10^6/uL (3.93-5.22); RDW 11.8 % (11.7-14.6); RDW-SD 39.4 fL; WBC 10.76 10^3/uL (4.4-10.8)
[2022-03-01 17:23] LABS: ALT 13 U/L (14-59); AST 11 U/L (15-37); Albumin 2.8 g/dL (3.4-5.0); Alkaline Phosphatase 75 U/L (46-116); Anion Gap 9.5 mmol/L (3-11); BUN 4 mg/dL (7-18); Bilirubin, Total 0.2 mg/dL (0.2-1.0); CO2 23.5 mmol/L (21.0-32.0); CREATININE 0.5 mg/dL (0.55-1.02); Calcium 8.5 mg/dL (8.5-10.1); Chloride 106 mmol/L (98-107); Glucose 99 mg/dL (74-106); Potassium 3.6 mmol/L (3.5-5.1); Sodium 139 mmol/L (136-145); Total Protein 6.5 g/dL (6.4-8.2); Uric Acid 3.4 mg/dL (2.6-6.0)
[2022-03-01 17:36] LABS: COMMENT (LAB VIEW ONLY) 32.95 mg/dL; PROTEIN < 6.0 mg/dL
--- NOTE | 2022-03-02 08:18 | W.OBNST ---
Date of service: 03/01/22 Time of Service: 16:00 NST Evaluation Reason for NST Reasons for Nonstress Test: OTHER, SEE COMMENT Reason for NST Other: Swelling and blurred vision Gestational Age Gestational Age in Weeks and Days: 31 Weeks and 6Days Test and Monitor Explained Test/Monitor Explained: Test Explained, Monitor Explained and Patient Verbalized Understanding Vital Signs Blood Pressure: 133/69 Pulse: 96 Temperature: 98.1 F Urine Results Urine Protein: Negative Urine Ketones: Negative Urine Glucose: Negative Urine Blood: Negative NST Information Date on Monitor: 03/01/22 Time on Monitor: 16:01 Date off Monitor: 03/01/22 Time off Monitor: 16:58 Total Time on Monitor: 57 NST Interventions: PO Hydration NST Evaluation Patient States Movement: Present FHR Baseline: 135 Variability: Moderate 6-25 bpm Accelerations: 15x15 Decelerations: None NST Results: Reactive Note NST Note Note: More called and reported increaed swelling today and blurred vision. She has 1+ pedal edema. No hand or facial edema. She denies headache. More reports a history of hypertension and she was treated with medications before and during her third with IOL at 37 weeks with her third child for chronic hypertension. Preeclampsia labs drawn and WNL. neg urine protein. More has a history of migraines and takes magnesum daily. Rest encourage and continue magnesium daily.Signs of preeclampsia reviewed. NST Reviewed and Verified by: Ibeth Christianson
[2022-03-02 08:19] VITALS: BP 133/69; PULSE 96; TEMP 36.7
== END 2022-03-01 17:04 | disposition home or self-care (01) ==
LOC: BCD 15:18 → OBS 15:55
PROVIDERS: Visit Provider Advanced Practice Midwife
DX: O26.893 Other specified pregnancy related conditions, third trimester (principal); H53.8 Other visual disturbances; R60.1 Generalized edema; I10 Essential (primary) hypertension; Z3A.31 31 weeks gestation of pregnancy
CPT/HCPCS: 59025; 80053; 85027; 82565; 84156; 84550

== ENCOUNTER → 2022-03-05 00:11 | Outpatient (CLI) | payer MEDICAID, SELFPAY ==
--- NOTE | 2022-03-05 07:15 | DI.US_ITS ---
Exam(s) US OB JONNIE WEIGHT EXAM: US OB JONNIE WEIGHT CLINICAL HISTORY: interval growth, covid 19, O98.512, U07.1. TECHNIQUE: Transabdominal obstetrical ultrasound performed. COMPARISON: US US OB 2-3 TRIMESTER W MOD from 12/03/2021 US US OB F/U FACIAL/LVOT/RVOT from 12/10/2021 US US OB F/U FACIAL/LVOT/RVOT from 02/01/2022 FINDINGS:: Number of fetuses: One. position: Vertex. Placental location: Posterior. Grade 2. No evidence of previa. BIOMETRIC DATA: BPD: 84mm = 34+ 0 weeks HC: 310mm = 34+5 weeks AC: 297mm = 33+5 weeks FL: 62 mm = 32+1 weeks EFW: [birth year]/04/1982 Gms = 71% Composite Age: 33+5 weeks EDC: 18 April 2022 Heart Rate: 141BPM Amniotic fluid index: 16.3 cm. Amount of fluid is within normal limits. IMPRESSION: size and weight are within the expected range. DATA REPOSITORY:
== END ==
PROVIDERS: Visit Provider Advanced Practice Midwife
DX: O98.513 Other viral diseases complicating pregnancy, third trimester (principal); U07.1 COVID-19; Z3A.33 33 weeks gestation of pregnancy
CPT/HCPCS: 76816

== ENCOUNTER 2022-03-27 14:23 | Observation (INO) | payer MEDICAID, SELFPAY ==
[2022-03-27] VITALS (10 sets, daily range): BP systolic 125–147; BP diastolic 64–83; PULSE 93–101; RESP 18; TEMP 37.1; O2SAT 97
[2022-03-27 13:46] LABS: HCT 38.5 % (36.0-46.0); HGB 13.9 g/dL (11.2-15.7); MCH 32.5 pg (27.0-33.0); MCHC 36.1 % (32.0-36.0); MCV 90 fL (80-95); MPV 11.2 fL (8.0-11.0); Platelet Count 242 10^3/uL (130-400); RBC 4.28 10^6/uL (3.93-5.22); RDW 11.9 % (11.7-14.6); RDW-SD 38.5 fL; WBC 12.67 10^3/uL (4.4-10.8)
[2022-03-27 14:00] LABS: PROTEIN < 6.0 mg/dL
[2022-03-27 14:01] LABS: ALT 14 U/L (14-59); AST 10 U/L (15-37); Albumin 2.7 g/dL (3.4-5.0); Alkaline Phosphatase 101 U/L (46-116); Anion Gap 10.7 mmol/L (3-11); BUN 8 mg/dL (7-18); Bilirubin, Total 0.4 mg/dL (0.2-1.0); CO2 21.3 mmol/L (21.0-32.0); CREATININE 0.6 mg/dL (0.55-1.02); Calcium 8.7 mg/dL (8.5-10.1); Chloride 103 mmol/L (98-107); Glucose 127 mg/dL (74-106); LDH 135 U/L (81-234); Potassium 3.8 mmol/L (3.5-5.1); Sodium 135 mmol/L (136-145); Total Protein 6.9 g/dL (6.4-8.2); Uric Acid 3.4 mg/dL (2.6-6.0)
[2022-03-27 14:02] LABS: COMMENT (LAB VIEW ONLY) < 13.00 mg/dL
--- NOTE | 2022-03-27 14:37 | PDOC.NST_ITS ---
Date of service: 03/27/22 Time of Service: 14:00 NST Evaluation Reason for NST Reasons for Nonstress Test: OTHER, SEE COMMENT Reason for NST Other: well-being. Gestational Age Gestational Age in Weeks and Days: 37 Weeks and 2Days Test and Monitor Explained Test/Monitor Explained: Test Explained, Monitor Explained and Patient Verbalized Understanding Vital Signs Blood Pressure: 147/72 Pulse: 97 Urine Results Urine Protein: Negative NST Information Date on Monitor: 03/27/22 Time on Monitor: 13:58 Date off Monitor: 03/27/22 Time off Monitor: 14:44 Total Time on Monitor: 46 NST Interventions: PO Hydration Contraction Frequency: irritabilty pattern, not felt by patient. NST Evaluation FHR Baseline: 130 Variability: Moderate 6-25 bpm Accelerations: 15x15 Decelerations: None NST Results: Reactive Note NST Note Note: NST is done today for severe range BP in office today of 208/100. She denies signs of pre-eclampsia and is otherwise feeling well. BP was below 160/110 but due to elevation of BP report was given to economic development coordinator Physician, Dr. Rodriguez who would like pateint to be outpatient admission for 24 hours, for initiation of Labetalol 200 mg twice daily and 24 hour urine collection. Patient agrees to this plan. NST is reactive after 1 hour of monitoring. WALTER NST Reviewed and Verified by: Ibeth Tapia
--- NOTE | 2022-03-27 15:48 | W.PM.OBHPL1 ---
Date of service: 03/27/22 Time of Service: 16:00 Assessment and Plan Assessment and plan (1) Hypertension affecting in third trimester: Status: Acute Assessment and plan: 1. 24 hour observation with 24 hour urine collection and repeat pre-eclampsia labs tomorrow 2. pre-eclampsia labs normal today 3. Will begin Labetalol 200mg twice daily per consult with Dr. Rodriguez 4. Daily NST 5. Will plan for induction between 37-39 weeks. WALTER (2) Asthma: Status: Chronic Assessment and plan: 1. currently Asthma symptoms are well controlled on Symbicort daily and uses rescue inhaler prn. Has met with Dr. Acharya during and Teacher Tutor believes patient will be able to deliver at [facility] and will be available for consult if needed once in labor. 2. continue present management. WALTER (3) Bipolar I disorder: Status: Acute Assessment and plan: 1. symptoms are well managed with Lamictal and Latuda. Will continued current management. WALTER (4) Genital herpes simplex virus (HSV) infection in mother affecting : Status: Acute Assessment and plan: 1. Is on Acyclovir 800 mg daily for prophylaxis. No HSV lesions at this time. OB-HPI Labor/Delivery History of Present Illness Reason for Visit: Hypertension Affecting Third Trimester Chief Complaint: Signs/Symptoms Gestational HTN (elevated BP in office) , Associated Signs and Symptoms of GestationalHTN: BP 208/100 in office, patient informed us she had HTN in past. BUFFY Calculator Estimated Delivery Date Method Current WG Current Estimate 04/27/22 Ultrasound #2 35w 4d Other Estimates 04/28/22 Ultrasound #1 35w 3d Comments: More is admitted to outpatient observation for 24 hours. She had NST just prior to this admission for elevated BP of 208/100 in office. BP lowered when she was at rest but still hypertensive. She reports that prior to her last she was managed with Hydrochlorathiazide daily for HTN and then when she became she was placed on Labetalol. This had slipped her mind until this week and had denied in past problems with HTN. She said after delivery she was fine and didn't think she had hypertension any longer. During this , she had mild elevations early in but was also having some bleeding that concerned her, highest BP in office prior to today was 134/84 on 08/31/21. The range after that was 102-128/64-72 until 34w4d when BP was 130/60. She had evaluation for pre-eclampsia this past week which was negative with reactive NST. Today she feels well and was surprised by her BP elevation. She understands reasoning to observe and agrees to stay over for observation. I reviewed that originally we were considering induction of labor for her due to thyroid disorder, COVID during , Asthma requiring daily symbicort and maternal request at 39 weeks but that might be earlier if VS do not stabilize or if indicated by status. Her most recent US was 03/05 as a follow up growth due to COVID in and EFW was 71% and JONNIE 16.3. Patient status and all of above has been reviewed with Dr. Rodriguez who is OB Physician motor inspection mechanic and plan developed collaboratively. KH History of Present Expected Delivery Route/Plan - CNM FOB/byfrnd: Rai Escobar (his 2nd child, his first with pt) BG Brooks Would like to be unmedicated for the first time, interested in waterbirth Specific Issues/Plan 1. Covid vaccinated x2, second vaccine July 2021. FOB is vaccinated x2 1a. COVID+ 12/23, MAB given 12/26, Z-rashad for pnuemonia 12/29, referral to pulmonology 01/03 has appointment 01/23 1b. 01/11/22 Prednisone 40 mg daily for 7 days per consult with Pulmonology due to persisitent cough and SOB and she will keep her appointment as scheduled 1c. growth and fluid check @ 32 wks - 71%ile, JONNIE 16.3 1d. Symbicort started at Pulmonology visit 2. Hashimotos thyroiditis - 2a. TSH 11.10 at [facility] on 08/27/21, placed on Levo 50 mcg at that time & current dose 2c. TSH and T4 drawn 10/09/21 TSH 4.65 and Ft4 0.81; [place] to [facility] [facility] [place] 10/18/21: increase to 100 mcg qd, target TSH is 2, recheck TSH 1.80 /TPO [id number] 3. Anxiety and Bipolar 1 disorder - taking latuda and lamictal- establishing care [facility] 3a. Receiving care with Hali Ruiz at [facility], sees her monthly for psych Rx 4. History of LGA baby - 9-12. BMI 33- early GTT 92, 1-hr at 28 weeks-128 5. Desires genetic screen: cfDNA low risk x6, female, CF negative. AFP=nml risk for NTD 6. History of post hemorrhage with second - I.V. access in labor. 7. Family history von willebrand-More's son. Labs 11/06 normal range X 2 8. History of Genital herpes - Taking acyclovir 800 mg daily 9. Marijuana use - counselled- THC neg on UDS. 10. Migraine - Takes fioricet PRN, magnesium daily recommended 1-2 x per day. 11. FOB: hx blood clot in legs, IDDM. He or his twin brother ?murmur at (Rai is uncertain which brother had it) 12. left sciatica - has seen a chiropractor in the past and would like to see one again. 13. Low lying placenta - 1.8 cms from os, repeat US at 28 wks, scheduled for 02/01/22- 15a. low lying placenta resolved - 2.4 cms from os. 14. Vitamin D level recommended: result 26.4, begin D3 5,000 units x2/wk at 23 wks 15. Hx of gHTN- Rx'ed prior to third preg & IOL at 37 weeks. Negative HTN labs 03/01/22. Weekly BP checks & low dose ASA daily 16. Note to Anesthesia regarding need for consult, see narrative, not indicated at this time, 03/12. Assessment: History Reviewed & Current Review of Systems Constitutional Constitutional: Reports as per HPI and Reports system reviewed and no additional complaints, except as documented Eyes Eyes: Reports as per HPI, Reports system reviewed and no additional complaints, except as documented and Reports other (denies photophobia, visual disturbance. KH) ENT Ears, Nose, Mouth, and Throat: Reports system reviewed and no additional complaints, except as documented Cardiovascular Cardiovascular: Reports as per HPI and Reports system reviewed and no additional complaints, except as documented Respiratory Respiratory: Reports as per HPI and Reports system reviewed and no additional complaints, except as documented Gastrointestinal Gastrointestinal: Reports as per HPI and Reports system reviewed and no additional complaints, except as documented Genitourinary Genitourinary: Reports system reviewed and no additional complaints, except as documented and Reports as per HPI Musculoskeletal Musculoskeletal: Reports system reviewed and no additional complaints, except as documented and Reports as per HPI Integumentary/Breasts Skin/Breast: Reports system reviewed and no additional complaints, except as documented and Reports as per HPI Neurologic Neurologic: Reports system reviewed and no additional complaints, except as documented Psychiatric Psychiatric: Reports system reviewed and no additional complaints, except as documented and Reports as per HPI Endocrine Endocrine: Reports system reviewed and no additional complaints, except as documented and Reports as per HPI Hematologic/Lymphatic Hematologic/Lymphatic: Reports system reviewed and no additional complaints, except as documented and Reports as per HPI Allergic/Immunologic Allergic/Immunologic: Reports system reviewed and no additional complaints, except as documented and Reports as per HPI [facility] All Active Problems (Updated 03/27/22 @ 16:19 by Ibeth Tapia CNM) Hypertension affecting in third trimester (Acute) (Acute) COVID-19 affecting in second trimester (Acute) Anti-TPO antibodies present (Acute) History of migraine (Acute) Marijuana smoker (Acute) Family history of von Willebrand disease (Acute) Genital herpes simplex virus (HSV) infection in mother affecting (Acute) (Acute) BMI 33.0-33.9,adult (Acute) Asthma (Chronic) using inhaler PRN. Anxiety (Chronic) Bipolar I disorder (Acute) Sarah's thyroiditis (Acute) diagnosed 2020 Medical History 18 weeks gestation of History of abnormal cervical Pap smear History of hypertension required medications throughout second Low lying placenta nos or without hemorrhage, second trimester Threatened miscarriage in early Surgical History H/O dilation and curettage History of tonsillectomy Family History Son Von Willebrands disease Mother Asthma Cancer Heart disease Lung disease Allergies Autoimmune disease Father Asthma Heart disease Social History Smoking/Tobacco Use Status: Former Tobacco Use Quit Date: 05/16/21 Tobacco: How many years used: 11 Second Hand Exposure: Yes Smoking risk assessment performed?: Yes Alcohol Intake: never Drug use: Occasionally Substance use type: marijuana Details: No current tobacco use. No marijuana use currently. Sexually active: Yes Do you think of yourself as: straight/heterosexual Current gender identity: female Do you feel safe at home: Yes Do you feel safe in your relationship?: Yes Female Reproductive History Menstrual control method: none History History 5 Para 3 Hx # Term Pregnancies 3 Multiple births 0 Hx # Pregnancies 0 Ectopic pregnancies 0 AB induced 1 Hx Number of Living Children 3 AB spontaneous 0 Past Pregnancies Del. Date GA/Weeks # Preg Succ Route Wgt Sex Labor Lgth Anesthesia Location Prov Complic 10/15/07 39 No vaginal 8 lb 8 oz Male 24 hours regional [place] 10/11/10 39 No vaginal 9 lb 12 oz Male 16 regional [place] hemorrhage 11/11/15 38 No vaginal 8 lb 11 oz Female 12 regional [place] Delivery Date: 10/15/07 Last Updated by: Ibeth Christianson CNM Valentín Delivery Date: 10/11/10 Last Updated by: Ibeth Christianson CNM hemorrhage, blood transfusion, Jacinto. he has Von Willebrands Delivery Date: 11/11/15 Last Updated by: Ibeth Christianson CNM Leigh Meds Allergies and Home Medications Allergies Allergy/AdvReac Type Severity Reaction Status Date / Time No Known Allergies Allergy Verified 03/27/22 16:15 Home Medications Medication Instructions Recorded Confirmed Type acyclovir 800 mg tablet 800 mg PO DAILY #90 tabs 08/27/21 03/20/22 Rx prenat.vits,parth,[id number] 1 tab PO DAILY 08/27/21 03/27/22 History lamotrigine 150 mg tablet 150 mg PO DAILY #30 tabs 08/28/21 03/27/22 Rx lurasidone 40 mg tablet (Latuda) 40 mg PO DAILY #30 tabs 08/28/21 03/27/22 Rx albuterol sulfate 90 mcg/actuation 2 puff inhalation QID PRN 12/25/21 03/27/22 Rx aerosol inhaler (ProAir HFA) shortness of breath or wheezing #6.7 grams cholecalciferol (vitamin D3) 125 125 mcg PO QWEEK #60 caps 01/03/22 03/27/22 Rx mcg (5,000 unit) capsule levothyroxine 50 mcg tablet 137 mcg PO DAILY 01/03/22 03/27/22 History budesonide-formoterol HFA 160 2 puff inhalation BID #10.2 grams 01/23/22 03/27/22 Rx mcg-4.5 mcg/actuation aerosol inhaler (Symbicort) pantoprazole 20 mg tablet,delayed 20 mg PO DAILY #90 tabs 03/20/22 03/27/22 Rx release (Protonix) Exam Physical Exam Vital signs: Pulse BP 97 H 147/72 H 03/27/22 14:19 03/27/22 14:19 Vital Signs Reviewed: Yes Constitutional Constitutional: no acute distress and obese Detailed Labor and Delivery Exam Prater Score: Cervical Points Exam 0 1 2 3 Dilation Closed 1-2cm 3-4 cm 5-6cm Effacement 0-30% 40-50% 60-70% 80% Consistency Firm Medium Soft Station -3 -2 -1,0 +1,+2 Position Posterior Mid Anterior Comments: Ante- patient at 35w4d, VE deferred. NST is reactive and reassuring. Plan to do daily NST. No contractions. Fetus A Heart Rate Baseline: 130 Monitor Accelerations: 15 X 15 Variability: Moderate (6-25 BPM) Categories: Category I Assessment Note: Per NST done prior to admission for observation. HEENT Exam HEENT Exam: Normal Neck Exam Neck Exam: Normal Chest/Brest/Axilla Exam Chest Exam: Not Done Breast Exam Breast Exam: Not Done Respiratory Exam Respiratory Exam: Normal Cardiovascular Exam Cardiovascular Exam: Abnormal (HTN noted today, will be managed by rest and PO Labatelol) Abdominal Exam Abdominal Exam: Normal (gravid uterus, size equals dates. ) Rectal Exam Rectal Exam: Not Done Exam Exam: Not Done (patient denies any evidence of HSV lesions taking suppression. ) Extremities Exam Extremities Exam: Normal (no significant edema, no hyper-reflexia) Back/Spine/Pelvis Exam Back Exam: Not Done Pelvis Adequate: Yes Skin Exam Skin Exam: Normal Neurological Exam Neurological Exam: Normal Psychiatric Exam Psychiatric Exam: Normal Results Results Group Beta Strep: Not Done (will get today) Blood Type: O+ Rubella Status: Immune Varicella Immunity: Immune Abnormal Lab Findings: Abnormal Labs 03/27/22 03/27/22 13:37 13:37 WBC 12.67 H MCHC 36.1 H MPV 11.2 H Sodium 135 L Glucose 127 H AST 10 L Albumin 2.7 L Risk Assessment Risk for Shoulder Dystocia Historical/Initial OB: POSITIVE FOR: Previous Macrosomia; NEGATIVE FOR: Pelvic Abnormality, Pre- BMI>30 or Previous Shoulder Dystocia Increased Risk?: No Delivery Plan @ 36wks: NVD expected. Risk for Pre-Eclampsia Yes, if one or more: NEGATIVE FOR: Hx Pre-E/Gest HTN, Chronic HTN, Multiple Gestation, Pre-gestational DM, Renal Disease, Systemic Lupus or APA Syndrome Yes, if 2 or more: POSITIVE FOR: BMI>30; NEGATIVE FOR: Nulliparity, Age>= 35 yrs, >10yr btwn pregnancies, ethinicty, Mother/Sister w/ Pre-E or Previous IUGR Risk for Post- Hemorrhage Initial: POSITIVE FOR: Previous PPH (with blood transfusion after delivery of baby weighing 9-12); NEGATIVE FOR: Multiple Gestation, Known Clotting Deficiency, Grand Multiparity or Anticoagulation At Risk?: Yes (history of PPH in past, history of LGA baby. No transfusion. ) Risks Reviewed Risks Reviewed Upon Admission: Yes
[2022-03-27] MEDS: Labetalol 100 MG TAB 200 MG PO ×2 (16:49→20:48)
[2022-03-27] MEDS: Budesonide/Formoterol 160/4.5 6 GM 60 PUFF INH IH (20:48)
[2022-03-27] MEDS: Acetaminophen 325 MG TAB 650 MG PO (21:16)
[2022-03-27] MEDS: Lurasidone 40 MG TAB PO (21:16)
[2022-03-27] MEDS: lamoTRIgine 100 MG TAB 150 MG PO (21:17)
[2022-03-28] VITALS: BP 103/63; PULSE 76; RESP 17; TEMP 36.6; O2SAT 99
[2022-03-28 03:34] LABS: Source Nasal/Nares
[2022-03-28] MEDS: Acetaminophen 325 MG TAB 650 MG PO ×2 (05:17→12:04)
[2022-03-28 07:36] VITALS: BP 117/70; PULSE 80; RESP 17; TEMP 36.5; O2SAT 98
[2022-03-28] MEDS: Labetalol 100 MG TAB 200 MG PO (09:30)
[2022-03-28] MEDS: Acyclovir 400 MG TAB 800 MG PO (09:30)
--- NOTE | 2022-03-28 10:30 | PGE_ITS ---
Date of Service Date of service: 03/28/22 Time of Service: 09:45 Assessment and Plan Assessment and plan (1) Hypertension affecting in third trimester: Status: Acute Assessment and plan: 1. will get NST this morning 2. Labs at 1330 and if stable will discharge to home at that time 3. Plan to do twice weekly NST's 4. Induction of labor recommended between 37-38 weeks. Scheduled prior to discharge today. Subjective Subjective Interval history since last seen: Feeling well and is hopeful to go home this afternoon. Admits to GARCIA after taking Labetalol but no vision changes. NST pending for today. Has repeat labs at 1330 and will likely be discharged to home on labetalol 200mg twice daily and NST's twice weekly with plan for IOL between 37 and 38 weeks per consult with OB Physician. Exam Const General: cooperative, healthy appearing and no acute distress Orientation: alert and oriented x3 HENMT Head: normal to inspection and atraumatic Ears: hearing grossly normal bilaterally and external ears normal Eyes General: appearance normal, both eyes and all related structures Neck Neck: normal visual inspection and full ROM Resp Effort & Inspection: normal respiratory effort and able to speak in complete sentences Cardio Other: Blood pressure WNL Other: deferred, no complaints. Skin General skin exam: no rashes or lesions noted Hair: normal Neuro General: gait normal, tone normal and moves all extremities Extrem General: normal to inspection, full ROM and no pedal edema Psych Appearance: grossly normal Speech and Movement: speech and movement normal Mood: congruent mood Affect: normal affect Attitude: cooperative Thought Process: normal Thought Content: normal Insight: insight good Judgment: judgment good Objective Last Vital Signs Temp 97.7 F 03/28/22 07:36 Pulse 80 03/28/22 07:36 Resp 17 03/28/22 07:36 BP 117/70 03/28/22 07:36 Pulse Ox 98 03/28/22 07:36 Laboratory Results - last 24 hr 03/27/22 03/27/22 03/27/22 13:30 13:37 13:37 WBC 12.67 H RBC 4.28 Hgb 13.9 Hct 38.5 MCV 90 MCH 32.5 MCHC 36.1 H RDW 11.9 Plt Count 242 MPV 11.2 H Sodium 135 L Potassium 3.8 Chloride 103 Carbon Dioxide 21.3 Anion Gap 10.7 BUN 8 Creatinine 0.6 Estimated GFR/1.73 m2 >= 60.00 Glucose 127 H Uric Acid 3.4 Calcium 8.7 Total Bilirubin 0.4 AST 10 L ALT 14 Alkaline Phosphatase 101 Lactate Dehydrogenase 135 Total Protein 6.9 Albumin 2.7 L Ur Random Creatinine < 13.00 U Random Total Protein < 6.0 U [place] Prot/Creat Ratio COVID-19 Source 03/27/22 03/27/22 03/28/22 Unknown Unknown 00:00 WBC Cancelled RBC Cancelled Hgb Cancelled Hct Cancelled MCV Cancelled MCH Cancelled MCHC Cancelled RDW Cancelled Plt Count Cancelled MPV Cancelled Sodium Cancelled Potassium Cancelled Chloride Cancelled Carbon Dioxide Cancelled Anion Gap Cancelled BUN Cancelled Creatinine Cancelled Estimated GFR/1.73 m2 Cancelled Glucose Cancelled Uric Acid Calcium Cancelled Total Bilirubin Cancelled AST Cancelled ALT Cancelled Alkaline Phosphatase Cancelled Lactate Dehydrogenase Total Protein Cancelled Albumin Cancelled Ur Random Creatinine U Random Total Protein U [place] Prot/Creat Ratio COVID-19 Source Nasal/Nares
[2022-03-28 12:00] VITALS: BP 124/75; PULSE 83; RESP 18; TEMP 36.8; O2SAT 98
[2022-03-28] MEDS: Pantoprazole 20 MG TABCR PO (12:05)
[2022-03-28 12:49] VITALS: BP 119/59; PULSE 85
[2022-03-28 12:53] VITALS: BP 119/59; PULSE 85; TEMP 36.8
--- NOTE | 2022-03-28 13:08 | DSE_ITS ---
Date of service: 03/28/22 Time of Service: 13:09 DS: Diagnosis Discharge Diagnosis (1) Hypertension affecting in third trimester: Status: Acute Asessment and Plan: 1. patient stabilized on Labetalol 200 mg twice daily for remainder of following severe range BP 03/27/22 without lab evidence of pre-eclampsia 2. Will return twice weekly for NST's until planned induction 04/08/22 at 0900. Discharge Plan Disposition Patient Disposition: HOME Condition: Good Discharge Details Reason For Visit: Hypertension Affecting Third Trimester Admit Date/Time: 03/27/22 14:23 Admit Provider: Ibeth Tapia Attending Provider: Ibeth Tapia Primary Care Provider: Unknown,Unknown Hospital Course Hospital Course: 24 hour observation on Center to establish anti-hypertensive medications at 35w4d and VS stabilization. NST done was reactive and reassuring. Labetalol 200 mg PO twice daily to manage BP during remainder of prenancy and possibly into PP period. 24 hour urine and pre-eclampsia labs to be repeated today prior to discharge. Labs and pro/creat ratio were negative yesterday. Patient will return for twice weekly NST's and planned induction on 03/09/22 at 0900. Home Meds and New Rx's Prescriptions: New labetalol 100 mg Tablet 200 mg PO BID Qty: 60 1RF Continued budesonide-formoterol [Symbicort] 160-4.5 mcg/actuation HFA aerosol inhaler 2 puff inhalation BID Qty: 10.2 12RF pantoprazole [Protonix] 20 mg tablet,delayed release (DR/EC) 20 mg PO DAILY Qty: 90 0RF prenat.vits,parth,[id number]-[id number]-msplz Tablet 1 tab PO DAILY acyclovir 800 mg tablet 800 mg PO DAILY Qty: 90 3RF Latuda 40 mg tablet 40 mg PO DAILY Qty: 30 0RF Rx Instructions: must administer with food (at least 350 calories) lamotrigine 150 mg tablet 150 mg PO DAILY Qty: 30 0RF levothyroxine 50 mcg tablet 137 mcg PO DAILY cholecalciferol (vitamin D3) 125 mcg (5,000 unit) capsule 125 mcg PO QWEEK Qty: 60 3RF Rx Instructions: take one elliott twice weekly albuterol sulfate [ProAir HFA] 90 mcg/actuation HFA aerosol inhaler 2 puff inhalation QID PRN (Reason: shortness of breath or wheezing) Qty: 6.7 4RF Discharge Instructions Activity:: Activity as Tolerated Equipment/Supplies:: No Equipment Needed Diet:: As Tolerated Discharge Orders Discharge Orders: Discharge Order (Routine); Ordered 03/28/22 Ordered By: Ibeth Tapia OB:DS Summary Summary Procedures: no procedures, this was antepartum 24 hour observation for BP stabilization and establishment of anti-hypertensive medications. Contraception Discussed Contraception Discussed: No, Status at Discharge Functional status at discharge: independent ambulation Overall status at discharge: patient is back to baseline Mental Status: mental status grossly normal Speech and Movement: speech and movement normal Mood: congruent mood Affect: normal affect Time Spent with Patient providing and/or coordinating discharge services: Less than 30 minutes Exam Physical Exam Vital signs: Temp Pulse Resp BP Pulse Ox 98.2 F 85 18 119/59 L 98 03/28/22 12:00 03/28/22 12:49 03/28/22 12:00 03/28/22 12:49 03/28/22 12:00 Vital Signs Reviewed: Yes Constitutional Constitutional: no acute distress and obese HEENT Exam HEENT Exam: Normal Neck Exam Neck Exam: Normal Respiratory Exam Respiratory Exam: Normal Cardiovascular Exam Cardiovascular Exam: Normal Abdominal Exam Comments: gravid, size equals dates. Rectal Exam Rectal Exam: Not Done Extremities Exam Extremity Exam: Normal and Full ROM Back/Spine/Pelvis Exam Back Exam: Not Done Skin Exam Skin Exam: Normal Neurological Exam Neurological Exam: Normal Psychiatric Exam Psychiatric Exam: Normal PFSH All Active Problems Hypertension affecting in third trimester (Acute) (Acute) COVID-19 affecting in second trimester (Acute) Anti-TPO antibodies present (Acute) History of migraine (Acute) Marijuana smoker (Acute) Family history of von Willebrand disease (Acute) Genital herpes simplex virus (HSV) infection in mother affecting (Acute) (Acute) BMI 33.0-33.9,adult (Acute) Asthma (Chronic) using inhaler PRN. Anxiety (Chronic) Bipolar I disorder (Acute) Sarah's thyroiditis (Acute) diagnosed 2020 Medical History 18 weeks gestation of History of abnormal cervical Pap smear History of hypertension required medications throughout second Low lying placenta nos or without hemorrhage, second trimester Threatened miscarriage in early Surgical History H/O dilation and curettage History of tonsillectomy Family History Son Von Willebrands disease Mother Asthma Cancer Heart disease Lung disease Allergies Autoimmune disease Father Asthma Heart disease Social History Smoking/Tobacco Use Status: Former Tobacco Use Quit Date: 05/16/21 Tobacco: How many years used: 11 Second Hand Exposure: Yes Smoking risk assessment performed?: Yes Alcohol Intake: never Drug use: Occasionally Substance use type: marijuana Details: No current tobacco use. No marijuana use currently. Sexually active: Yes Do you think of yourself as: straight/heterosexual Current gender identity: female Do you feel safe at home: Yes Do you feel safe in your relationship?: Yes Female Reproductive History Menstrual control method: none History History 5 Para 3 Hx # Term Pregnancies 3 Multiple births 0 Hx # Pregnancies 0 Ectopic pregnancies 0 AB induced 1 Hx Number of Living Children 3 AB spontaneous 0 Past Pregnancies Del. Date GA/Weeks # Preg Succ Route Wgt Sex Labor Lgth Anesth esia Location Prov Complic 10/15/07 39 No vaginal 8 lb 8 oz Male 24 hours regional [place] 10/11/10 39 No vaginal 9 lb 12 oz Male 16 regional M A hemorrhage 11/11/15 38 No vaginal 8 lb 11 oz Female 12 regional [place] Delivery Date: 10/15/07 Last Updated by: Ibeth Christianson CNM Valentín Delivery Date: 10/11/10 Last Updated by: Ibeth Christianson CNM hemorrhage, blood transfusion, Jacinto. he has Von Willebrands Delivery Date: 11/11/15 Last Updated by: BECKY Chau DS: Data Vitals/I&O Vitals and I&O: Vital Signs Temperature 98.2 F 03/28/22 12:00 Pulse 85 03/28/22 12:49 Pulse Rhythm Regular 03/27/22 20:38 Respiratory Rate 18 03/28/22 12:00 Respiratory Effort Non-Labored 03/27/22 20:38 Respiratory Depth Normal 03/27/22 20:38 Respiratory Pattern Normal 03/27/22 20:38 Blood Pressure 119/59 L 03/28/22 12:49 Blood Pressure Mean 91 03/28/22 12:00 Pulse Oximetry 98 03/28/22 12:00 Pain Level 5 03/28/22 12:04 Intake & Output 03/27/22 03/28/22 03/28/22 23:59 11:59 23:59 Intake Total 700 / 700 700 / 700 Output Total 1600 / 1600 400 / 400 Balance -900 / -900 300 / 300 Weight 264 lb Intake: Oral 700 / 700 700 / 700 Output: Urine 1600 / 1600 400 / 400 Other: Urine Color Yellow Urine Appearance Clear Data Completed and Pending Labs on day of discharge: Labs from last 24 hours 03/28/22 03/28/22 03/28/22 13:30 13:30 00:00 WBC Pending RBC Pending Hgb Pending Hct Pending MCV Pending MCH Pending MCHC Pending RDW Pending Plt Count Pending MPV Pending Sodium Pending Potassium Pending Chloride Pending Carbon Dioxide Pending Anion Gap Pending BUN Pending Creatinine Pending Estimated GFR/1.73 m2 Pending Glucose Pending Uric Acid Calcium Pending Total Bilirubin Pending AST Pending ALT Pending Alkaline Phosphatase Pending Lactate Dehydrogenase Total Protein Pending Albumin Pending Ur Random Creatinine U Random Total Protein U [place] Prot/Creat Ratio COVID-19 Source Nasal/Nares SARS-CoV-2 (PCR) Pending 03/27/22 03/27/22 03/27/22 Unknown Unknown 13:37 WBC Cancelled 12.67 H RBC Cancelled 4.28 Hgb Cancelled 13.9 Hct Cancelled 38.5 MCV Cancelled 90 MCH Cancelled 32.5 MCHC Cancelled 36.1 H RDW Cancelled 11.9 Plt Count Cancelled 242 MPV Cancelled 11.2 H Sodium Cancelled Potassium Cancelled Chloride Cancelled Carbon Dioxide Cancelled Anion Gap Cancelled BUN Cancelled Creatinine Cancelled Estimated GFR/1.73 m2 Cancelled Glucose Cancelled Uric Acid Calcium Cancelled Total Bilirubin Cancelled AST Cancelled ALT Cancelled Alkaline Phosphatase Cancelled Lactate Dehydrogenase Total Protein Cancelled Albumin Cancelled Ur Random Creatinine U Random Total Protein U [place] Prot/Creat Ratio COVID-19 Source SARS-CoV-2 (PCR) 03/27/22 03/27/22 13:37 13:30 WBC RBC Hgb Hct MCV MCH MCHC RDW Plt Count MPV Sodium 135 L Potassium 3.8 Chloride 103 Carbon Dioxide 21.3 Anion Gap 10.7 BUN 8 Creatinine 0.6 Estimated GFR/1.73 m2 >= 60.00 Glucose 127 H Uric Acid 3.4 Calcium 8.7 Total Bilirubin 0.4 AST 10 L ALT 14 Alkaline Phosphatase 101 Lactate Dehydrogenase 135 Total Protein 6.9 Albumin 2.7 L Ur Random Creatinine < 13.00 U Random Total Protein < 6.0 U [place] Prot/Creat Ratio COVID-19 Source SARS-CoV-2 (PCR) 03/27/22 15:30 Perirectal Group B Streptococcus Culture - Pending Preliminary micro results at discharge 03/27/22 15:30 Group B Streptococcus Culture - Pending Perirectal
--- NOTE | 2022-03-28 13:31 | W.OBNST ---
Date of service: 03/28/22 Time of Service: 13:20 NST Evaluation Reason for NST Reasons for Nonstress Test: GESTATIONAL HYPERTENSION Reason for NST Other: well-being. Gestational Age Gestational Age in Weeks and Days: 37 Weeks and 3Days Test and Monitor Explained Test/Monitor Explained: Test Explained, Monitor Explained and Patient Verbalized Understanding Vital Signs Blood Pressure: 119/59 Pulse: 85 Temperature: 98.2 F Urine Results Urine Protein: Negative NST Information Date on Monitor: 03/28/22 Time on Monitor: 12:45 Date off Monitor: 03/28/22 Time off Monitor: 13:22 Total Time on Monitor: 37 NST Interventions: PO Hydration Contraction Frequency: irritabilty pattern, not felt by patient. NST Evaluation Patient States Movement: Present FHR Baseline: 135 Variability: Moderate 6-25 bpm Accelerations: 15x15 and 10x10 Decelerations: None NST Results: Reactive Note NST Note Note: NST is reactive and reassuring. Will continue with twice weekly NST's until induction scheduled for 7/25 am for hypertension affecting , on medications. WALTER NST Reviewed and Verified by: Ibeth Tapia
[2022-03-28 13:32] VITALS: BP 119/59; PULSE 85; TEMP 36.8
[2022-03-28 13:55] LABS: HCT 34.8 % (36.0-46.0); HGB 12.5 g/dL (11.2-15.7); MCH 32.6 pg (27.0-33.0); MCHC 35.9 % (32.0-36.0); MCV 91 fL (80-95); MPV 11.3 fL (8.0-11.0); Platelet Count 221 10^3/uL (130-400); RBC 3.84 10^6/uL (3.93-5.22); RDW-SD 39.6 fL; WBC 9.96 10^3/uL (4.4-10.8)
[2022-03-28 14:10] LABS: COVID-19 PCR Negative (Negative)
[2022-03-28 14:17] LABS: ALT 15 U/L (14-59); AST 11 U/L (15-37); Albumin 2.6 g/dL (3.4-5.0); Alkaline Phosphatase 101 U/L (46-116); Anion Gap 10.2 mmol/L (3-11); BUN 8 mg/dL (7-18); Bilirubin, Total 0.3 mg/dL (0.2-1.0); CO2 22.8 mmol/L (21.0-32.0); CREATININE 0.6 mg/dL (0.55-1.02); Calcium 8.5 mg/dL (8.5-10.1); Chloride 104 mmol/L (98-107); Glucose 135 mg/dL (74-106); Potassium 3.8 mmol/L (3.5-5.1); Sodium 137 mmol/L (136-145); Total Protein 6.4 g/dL (6.4-8.2)
[2022-03-28 18:44] LABS: Creatinine,Urine 29.93 mg/dL
[2022-03-28 18:45] LABS: PROTEIN 8.9 mg/dL (0.0-11.9)
[2022-03-28 18:57] LABS: Total Volume 3140 ml
[2022-03-28 18:58] LABS: Creatinine,24hr Ur 0.93 g/24hr (0.60-1.80); TOTAL PROTEIN,URINE TIMED 279.5 mg/24hr (0.0-149.1)
[2022-03-29 07:56] VITALS: BP 112/80; PULSE 96
== END 2022-03-28 14:05 | disposition home or self-care (01) ==
LOC: BCD 14:36 → OBS 14:36
PROVIDERS: Admitting Provider Advanced Practice Midwife; Visit Provider Advanced Practice Midwife
DX: O13.3 Gestational [pregnancy-induced] hypertension without significant proteinuria, third trimester (principal); O99.343 Other mental disorders complicating pregnancy, third trimester; O99.283 Endocrine, nutritional and metabolic diseases complicating pregnancy, third trimester; O99.353 Diseases of the nervous system complicating pregnancy, third trimester; O98.313 Other infections with a predominantly sexual mode of transmission complicating pregnancy, third trimester; Z20.822 Contact with and (suspected) exposure to COVID-19; A60.09 Herpesviral infection of other urogenital tract; Z3A.35 35 weeks gestation of pregnancy; E06.3 Autoimmune thyroiditis; G43.909 Migraine, unspecified, not intractable, without status migrainosus; O44.43 Low lying placenta NOS or without hemorrhage, third trimester; F31.9 Bipolar disorder, unspecified
CPT/HCPCS: 80053; 85027; 87635; 59025; 81050; 82565; 82570; 83615; 84155; 84156; 84550; 87081; G0378

== ENCOUNTER 2022-03-27 16:35 | Outpatient (REF) | payer MEDICAID, SELFPAY ==
[2022-03-27 16:56] LABS: *AMPHETAMINES SCREEN URINE Negative (Negative); *BARBITURATES SCREEN URINE Negative (Negative); *BENZODIAZEPINES SCREEN URINE Negative (Negative); Cannabinoids THC Negative (Negative); Cocaine Screen,Urine Negative (Negative); METHADONE URINE SCREEN Negative (Negative); OPIATES URINE SCREEN Negative (Negative)
[2022-03-27 17:02] LABS: Tricyclic Antidepressants Negative (Negative)
[2022-04-03 13:29] LABS: Buprenorphine Negative ng/mL (Cutoff: 5.0); Norbuprenorphine Negative ng/mL (Cutoff: 2.5)
== END 2022-03-27 16:36 | disposition home or self-care (01) ==
LOC: LBN 16:35
PROVIDERS: Visit Provider Advanced Practice Midwife
DX: Z34.93 Encounter for supervision of normal pregnancy, unspecified, third trimester (principal)
CPT/HCPCS: 80307

== ENCOUNTER 2022-03-31 17:05 | Outpatient (CLI) | payer MEDICAID, SELFPAY ==
[2022-03-31 18:23] VITALS: BP 130/60; PULSE 93
[2022-03-31 18:28] LABS: HGB 13.1 g/dL (11.2-15.7); MCH 32.5 pg (27.0-33.0); MCHC 35.4 % (32.0-36.0); MCV 92 fL (80-95); MPV 11.1 fL (8.0-11.0); Platelet Count 248 10^3/uL (130-400); RBC 4.03 10^6/uL (3.93-5.22); RDW 12.1 % (11.7-14.6); RDW-SD 40.1 fL; WBC 11.18 10^3/uL (4.4-10.8)
[2022-03-31 18:45] LABS: ALT 18 U/L (14-59); AST 13 U/L (15-37); Albumin 2.8 g/dL (3.4-5.0); Alkaline Phosphatase 108 U/L (46-116); Anion Gap 10.5 mmol/L (3-11); BUN 10 mg/dL (7-18); Bilirubin, Total 0.3 mg/dL (0.2-1.0); CO2 22.5 mmol/L (21.0-32.0); CREATININE 0.6 mg/dL (0.55-1.02); Calcium 8.8 mg/dL (8.5-10.1); Chloride 103 mmol/L (98-107); Glucose 100 mg/dL (74-106); LDH 140 U/L (81-234); Potassium 4.1 mmol/L (3.5-5.1); Sodium 136 mmol/L (136-145); Total Protein 6.7 g/dL (6.4-8.2); Uric Acid 3.6 mg/dL (2.6-6.0)
[2022-03-31 18:50] LABS: COMMENT (LAB VIEW ONLY) 21.24 mg/dL; PROTEIN < 6.0 mg/dL
[2022-03-31] MEDS: Butalbital/Acetaminophen/Caffeine 50/325/40 TAB PO (19:13)
--- NOTE | 2022-03-31 19:21 | PDOC.NST_ITS ---
Date of service: 03/31/22 Time of Service: 19:05 NST Evaluation Reason for NST Reasons for Nonstress Test: GESTATIONAL HYPERTENSION Gestational Age Gestational Age in Weeks and Days: 36 Weeks and 1Days Test and Monitor Explained Test/Monitor Explained: Test Explained, Monitor Explained and Patient Verbalized Understanding Vital Signs Blood Pressure: 130/60 Pulse: 93 Urine Results Urine Protein: Negative Urine Ketones: Negative Urine Glucose: Negative Urine Blood: Negative NST Information Date on Monitor: 03/31/22 Time on Monitor: 18:12 Date off Monitor: 03/31/22 Time off Monitor: 19:12 Total Time on Monitor: 60 NST Interventions: PO Hydration Contraction Frequency: irregular Comments: patient is not feeling contractions NST Evaluation Patient States Movement: Present FHR Baseline: 130 Variability: Moderate 6-25 bpm Accelerations: 15x15 Decelerations: None NST Results: Reactive Note NST Note Note: NST is done due to GARCIA for a couple of days, she reports some discomfort in her right upper abdomen. Denies light sensitivity. Reflexes at 1+ bilaterally patellar. No edema. Pre-eclampsia labs are negative today. She reports history of migraine and has used Fioricet in past with good relief but does not have a current RX. She has used that medication while on her current medications withou t difficulty. I gave a dose tonight while here and sent RX for 10 tabs to her pharmacy. We discussed staying here until headache is relieved and More declines this stating she will call if she has any other symptoms but she is relieved to know her labs are stable. She has another NST scheduled for Friday, 04/02 and induction scheduled 04/08. Discharged home in satisfactory condition. NST is reactive and reassuring. NST Reviewed and Verified by: Ibeth Tapia
[2022-03-31 19:22] VITALS: BP 130/60
[2022-03-31 19:26] VITALS: PULSE 93
[2022-04-01 15:10] VITALS: BP 114/58; PULSE 76
== END 2022-03-31 19:18 | disposition home or self-care (01) ==
LOC: BCD 17:06 → OBS 17:09
PROVIDERS: Visit Provider Advanced Practice Midwife
DX: O16.3 Unspecified maternal hypertension, third trimester (principal); Z3A.36 36 weeks gestation of pregnancy
CPT/HCPCS: 59025; 80053; 85027; 86850; 86900; 86901; 82565; 83615; 84156; 84550

== ENCOUNTER 2022-04-02 07:21 | Outpatient (CLI) | payer MEDICAID, SELFPAY ==
[2022-04-02 11:45] VITALS: BP 130/63; PULSE 94; TEMP 36.6
[2022-04-02 12:17] VITALS: BP 130/63; PULSE 94
--- NOTE | 2022-04-02 12:28 | W.OBNST ---
Date of service: 04/02/22 Time of Service: 12:20 NST Evaluation Reason for NST Reasons for Nonstress Test: GESTATIONAL HYPERTENSION Gestational Age Gestational Age in Weeks and Days: 36 Weeks and 3Days Test and Monitor Explained Test/Monitor Explained: Test Explained, Monitor Explained and Patient Verbalized Understanding Vital Signs Blood Pressure: 130/63 Pulse: 97 NST Information Time on Monitor: 11:46 NST Interventions: PO Hydration NST Evaluation Patient States Movement: Present
--- NOTE | 2022-04-02 12:33 | W.OBNST ---
Date of service: 04/02/22 Time of Service: 12:20 NST Evaluation Reason for NST Reasons for Nonstress Test: GESTATIONAL HYPERTENSION Gestational Age Gestational Age in Weeks and Days: 36 Weeks and 3Days Test and Monitor Explained Test/Monitor Explained: Test Explained, Monitor Explained and Patient Verbalized Understanding Vital Signs Blood Pressure: 130/63 Pulse: 97 Temperature: 97.9 F Urine Results Urine Protein: Negative Urine Ketones: Negative Urine Glucose: Negative Urine Blood: Negative NST Information Date on Monitor: 04/02/22 Time on Monitor: 11:46 Date off Monitor: 04/02/22 Time off Monitor: 12:19 Total Time on Monitor: 33 NST Interventions: PO Hydration Contraction Frequency: none NST Evaluation Patient States Movement: Present FHR Baseline: 135 Variability: Moderate 6-25 bpm Accelerations: 15x15 Decelerations: None NST Results: Reactive Note NST Note Note: Reative NST done for hypertension affecting in third trimester. Patient is feeing well. Denies signs of pre-eclampsia. Scheduled for induction 04/08/22. NST today is reactive and reassuring with normal range BP. NST Reviewed and Verified by: Ibeth Tapia
[2022-04-02 12:35] VITALS: BP 130/63; PULSE 97; TEMP 36.6
== END 2022-04-02 12:25 | disposition home or self-care (01) ==
LOC: BCD 07:22 → OBS 11:33
PROVIDERS: Visit Provider Advanced Practice Midwife
DX: O16.3 Unspecified maternal hypertension, third trimester (principal); Z3A.36 36 weeks gestation of pregnancy
CPT/HCPCS: 59025

== ENCOUNTER 2022-04-04 12:52 | Emergency (ER) | payer MEDICAID, SELFPAY ==
[2022-04-04 13:34] VITALS: BP 137/83; PULSE 93; RESP 16; TEMP 36.8; O2SAT 97
--- NOTE | 2022-04-04 14:00 | DI.RAD_ITS ---
Exam(s) XR FOOT RT COMPLETE EXAM: XR FOOT RT COMPLETE CLINICAL HISTORY: pain. TECHNIQUE: 2D digital imaging was performed. COMPARISON: No exams were available for comparison FINDINGS: 3 views There is no evidence of fracture or diastasis of the Lisfranc joint. Bone density normal. No osseou s lesions. Bilateral bipartite sesamoid bones incidentally noted subjacent to the great toe metatars al head. No metatarsal fractures. Plantar arch is maintained. No pes planus. IMPRESSION: No significant acute osseous findings. DATA REPOSITORY: RADIATION DOSE DELIVERED:
--- NOTE | 2022-04-04 14:01 | ED.GENADUL_ITS ---
Discharge Plan Disposition Patient Disposition: HOME Condition: Stable Discharge Details Clinical Impression: Foot pain, right Primary Care Provider: ALKA BONILLA ED Provider: Kaiden Dawkins Home Meds and New Rx's Prescriptions: Continued budesonide-formoterol [Symbicort] 160-4.5 mcg/actuation HFA aerosol inhaler 2 puff inhalation BID Qty: 10.2 12RF pantoprazole [Protonix] 20 mg tablet,delayed release (DR/EC) 20 mg PO DAILY Qty: 90 0RF prenat.vits,parth,yud-tdeq-ovurn Tablet 1 tab PO DAILY acyclovir 800 mg tablet 800 mg PO DAILY Qty: 90 3RF Latuda 40 mg tablet 40 mg PO DAILY Qty: 30 0RF Rx Instructions: must administer with food (at least 350 calories) lamotrigine 150 mg tablet 150 mg PO DAILY Qty: 30 0RF levothyroxine 50 mcg tablet 137 mcg PO DAILY cholecalciferol (vitamin D3) 125 mcg (5,000 unit) capsule 125 mcg PO QWEEK Qty: 60 3RF Rx Instructions: take one elliott twice weekly albuterol sulfate [ProAir HFA] 90 mcg/actuation HFA aerosol inhaler 2 puff inhalation QID PRN (Reason: shortness of breath or wheezing) Qty: 6.7 4RF kmqoqwceau-efxwvkpkux-uof-cod [Fioricet with Codeine] [id number] mg capsule 1 cap PO Q4H PRN (Reason: pain) Qty: 10 0RF labetalol 100 mg Tablet 200 mg PO BID Qty: 60 1RF Discharge Instructions Additional Instructions: Your xray did not show any broken bone. This is likely inflammation from increased pressure on the foot follow up with your primary care provider if pain continues in 1-2 weeks if you feel more ill, have fevers or redness spreading up the leg return to the emergency department Medical Decision Making 31 yo female who is 36 weeks and is due to be induced in 4 days comes in with right foot pain at the base of the right toe. She states it started last night and is not sure if she had hit it on anything or not. She has had pain walking due to it so came here. No fevers, chills, rashes. She arrives stable and her foot and leg are not swollen compared to the left. No calf tenderness. HAs full rom of the ankle, normal pulses and sensation. She can fully move the toe, is tender on the plantar surface of the toe no warmth no crepitus. Suspect stress injury less likely fracture, no findings to suggest infectious etiology such as septic joint or gout. Will obtain xray after discussing with her risks of xray and she wants to proceed with xray xray on my read unremarkable for fracture, does have what appears to possible be sesamoid on the 5th metatarsal where her pain is so suspect sesamoiditis. Discussed with her and she is stable for d/c, will f/u with pcp as needed if foot continuesd to be an issue after delivery Differential Diagnosis Differential Diagnosis: stress fracture, strain, sprain Imaging Data Radiologic Study: Attestation: I personally reviewed and interpreted this imaging study as follows: Imaging: X-Ray My impression: no fracture HPI General Mode of arrival: wheelchair . Date/Time Provider Initiated Documentation: 04/04/22 13:48 . Limitations to Documentation: no limitations . Information obtained by: patient . History of Present Illness 31 year old F presents to the emergency department with the chief complaint of right foot pain, described as moderate, Patient started experiencing this day(s) (1) and it has been constant. Rest improves symptom(s), Other factors that worsen symptoms (walking) . Patient notes no other symptoms.. Patient did receive the following treatments prior to arrival, other (tylenol) Related Data Home Medications Medication Instructions Recorded Confirmed acyclovir 800 mg tablet 800 mg PO DAILY #90 tabs 08/27/21 04/04/22 prenat.vits,parth,mvw-zyxz-coigy 1 tab PO DAILY 08/27/21 04/04/22 lamotrigine 150 mg tablet 150 mg PO DAILY #30 tabs 08/28/21 04/04/22 lurasidone 40 mg tablet (Latuda) 40 mg PO DAILY #30 tabs 08/28/21 04/04/22 albuterol sulfate 90 mcg/actuation 2 puff inhalation QID PRN 12/25/21 04/04/22 aerosol inhaler (ProAir HFA) shortness of breath or wheezing #6.7 grams cholecalciferol (vitamin D3) 125 125 mcg PO QWEEK #60 caps 01/03/22 04/04/22 mcg (5,000 unit) capsule levothyroxine 50 mcg tablet 137 mcg PO DAILY 01/03/22 04/04/22 budesonide-formoterol HFA 160 2 puff inhalation BID #10.2 grams 01/23/22 04/04/22 mcg-4.5 mcg/actuation aerosol inhaler (Symbicort) pantoprazole 20 mg tablet,delayed 20 mg PO DAILY #90 tabs 03/20/22 04/04/22 release (Protonix) labetalol 100 mg tablet 200 mg PO BID #60 tabs 03/28/22 04/04/22 butalbital 50 mg-acetaminophen 300 1 cap PO Q4H PRN pain #10 caps 03/31/22 04/04/22 mg-caffeine 40 mg-codeine 30 mg cap (Fioricet with Codeine) Previous Rx's Medication Instructions Recorded acyclovir 800 mg tablet 800 mg PO DAILY #90 tabs 08/27/21 lamotrigine 150 mg tablet 150 mg PO DAILY #30 tabs 08/28/21 lurasidone 40 mg tablet (Latuda) 40 mg PO DAILY #30 tabs 08/28/21 albuterol sulfate 90 mcg/actuation 2 puff inhalation QID PRN 12/25/21 aerosol inhaler (ProAir HFA) shortness of breath or wheezing #6.7 grams cholecalciferol (vitamin D3) 125 125 mcg PO QWEEK #60 caps 01/03/22 mcg (5,000 unit) capsule budesonide-formoterol HFA 160 2 puff inhalation BID #10.2 grams 01/23/22 mcg-4.5 mcg/actuation aerosol inhaler (Symbicort) pantoprazole 20 mg tablet,delayed 20 mg PO DAILY #90 tabs 03/20/22 release (Protonix) labetalol 100 mg tablet 200 mg PO BID #60 tabs 03/28/22 butalbital 50 mg-acetaminophen 300 1 cap PO Q4H PRN pain #10 caps 03/31/22 mg-caffeine 40 mg-codeine 30 mg cap (Fioricet with Codeine) Allergies Allergy/AdvReac Type Severity Reaction Status Date / Time No Known Allergies Allergy Verified 04/04/22 13:39 General Stated Complaint: Orthopedic COREY: 4 Review of Systems All systems reviewed & are unremarkable except as noted in HPI and below Constitutional Constitutional: Denies chills, Denies fever(s) and Denies weakness ENT Ears, Nose, Mouth, and Throat: Denies change in voice Cardiovascular Cardiovascular: Denies chest pain and Denies dyspnea Respiratory Respiratory: Denies cough and Denies dyspnea Gastrointestinal Gastrointestinal: Denies abdominal pain, Denies nausea and Denies vomiting Genitourinary Genitourinary: Denies dysuria Musculoskeletal Musculoskeletal: Denies joint swelling Integumentary/Breasts Skin/Breast: Denies rash Neurologic Neurologic: Denies weakness PFSH All Active Problems (Updated 04/04/22 @ 15:08 by Kaiden Dawkins MD) Foot pain, right (Acute) GBS (group B Streptococcus carrier), +RV culture, currently (Acute) Hypertension affecting in third trimester (Acute) (Acute) COVID-19 affecting in second trimester (Acute) Anti-TPO antibodies present (Acute) History of migraine (Acute) Marijuana smoker (Acute) Family history of von Willebrand disease (Acute) Genital herpes simplex virus (HSV) infection in mother affecting (Acute) (Acute) BMI 33.0-33.9,adult (Acute) Asthma (Chronic) using inhaler PRN. Anxiety (Chronic) Bipolar I disorder (Acute) Sarah's thyroiditis (Acute) diagnosed 2020 Medical History 18 weeks gestation of History of abnormal cervical Pap smear History of hypertension required medications throughout second Low lying placenta nos or without hemorrhage, second trimester Threatened miscarriage in early Surgical History H/O dilation and curettage History of tonsillectomy Family History Son Von Willebrands disease Mother Asthma Cancer Heart disease Lung disease Allergies Autoimmune disease Father Asthma Heart disease Social History Smoking/Tobacco Use Status: Former Tobacco Use Quit Date: 05/16/21 Tobacco: How many years used: 11 Second Hand Exposure: Yes Smoking risk assessment performed?: Yes Alcohol Intake: never Drug use: Occasionally Substance use type: marijuana Details: No current tobacco use. No marijuana use currently. Sexually active: Yes Do you think of yourself as: straight/heterosexual Current gender identity: female Do you feel safe at home: Yes Do you feel safe in your relationship?: Yes Female Reproductive History Menstrual control method: none History History 5 Para 3 Hx # Term Pregnancies 3 Multiple births 0 Hx # Pregnancies 0 Ectopic pregnancies 0 AB induced 1 Hx Number of Living Children 3 AB spontaneous 0 Past Pregnancies Del. Date GA/Weeks # Preg Succ Route Wgt Sex Labor Lgth Anesth esia Location Prov Complic 10/15/07 39 No vaginal 3855.535 g Male 24 hours regional [place] 10/11/10 39 No vaginal 4422.526 g Male 16 regional M A hemorrhage 11/11/15 38 No vaginal 3940.584 g Female 12 regional [place] Delivery Date: 10/15/07 Last Updated by: Ibeth Christianson CNM Valentín Delivery Date: 10/11/10 Last Updated by: Ibeth Christianson CNM hemorrhage, blood transfusion, Jacinto. he has Von Willebrands Delivery Date: 11/11/15 Last Updated by: Ibeth Christianson CNM Leigh Exam Const General: no acute distress Orientation: alert [facility] Head: normal to inspection Ears: external ears normal General nose exam: external nose normal Mouth: moist mucous membranes Eyes General: appearance normal, both eyes and all related structures Neck Neck: normal visual inspection Resp Effort & Inspection: normal respiratory effort and able to speak in complete sentences Cardio Rate: regular rate Skin General skin exam: no rashes or lesions noted Neuro General: patient alert and patient oriented x3 Extrem General: normal to inspection Psych Mental Status: mental status grossly normal Course Vital Signs Vital signs: Vital Signs Temperature 36.8 C 04/04/22 13:34 Pulse 93 H 04/04/22 13:34 Respiratory Rate 16 04/04/22 13:34 Blood Pressure 137/83 04/04/22 13:34 Pulse Oximetry 97 04/04/22 13:34 Temperature 36.8 C 04/04/22 13:34 Pulse 93 H 04/04/22 13:34 Respiratory Rate 16 04/04/22 13:34 Respiratory Effort 04/04/22 13:40 Blood Pressure 137/83 04/04/22 13:34 Pulse Oximetry 97 04/04/22 13:34 Pain Level 8 04/04/22 13:34
== END 2022-04-04 15:11 | disposition home or self-care (01) ==
PROVIDERS: Emergency Provider Emergency Medicine; PCP Family Medicine
DX: O26.893 Other specified pregnancy related conditions, third trimester (principal); M79.671 Pain in right foot; O10.913 Unspecified pre-existing hypertension complicating pregnancy, third trimester; O09.293 Supervision of pregnancy with other poor reproductive or obstetric history, third trimester; Z87.891 Personal history of nicotine dependence; Z3A.36 36 weeks gestation of pregnancy
CPT/HCPCS: 99283; 73630; 99282

== ENCOUNTER 2022-04-05 08:52 | Outpatient (CLI) | payer MEDICAID, SELFPAY ==
[2022-04-05 12:15] VITALS: BP 121/73; PULSE 96; TEMP 36.4
[2022-04-05 12:22] VITALS: BP 121/73; PULSE 96
--- NOTE | 2022-04-05 13:57 | PDOC.NST_ITS ---
Date of service: 04/05/22 Time of Service: 13:57 NST Evaluation Reason for NST Reasons for Nonstress Test: GESTATIONAL HYPERTENSION Gestational Age Gestational Age in Weeks and Days: 36 Weeks and 6Days Test and Monitor Explained Test/Monitor Explained: Test Explained, Monitor Explained and Patient Verbalized Understanding Vital Signs Blood Pressure: 121/73 Pulse: 96 Temperature: 97.5 F Urine Results Urine Protein: Negative Urine Ketones: Negative Urine Glucose: Negative Urine Blood: Negative NST Information Date on Monitor: 04/05/22 Time on Monitor: 12:15 Date off Monitor: 04/05/22 Time off Monitor: 12:51 Total Time on Monitor: 36 NST Interventions: PO Hydration NST Evaluation Patient States Movement: Present FHR Baseline: 135 Variability: Moderate 6-25 bpm Accelerations: 10x10 Decelerations: None NST Results: Reactive Note NST Note Note: More is currently taking labetalol BID. IOL is planned for 04/08. SVE per formed. Unable to reach cervix. Vertex at -2, 80% effaced NST Reviewed and Verified by: Ibeth Christianson
[2022-04-05 13:59] VITALS: BP 121/73; PULSE 96; TEMP 36.4
== END 2022-04-05 13:00 | disposition home or self-care (01) ==
LOC: BCD 08:54 → OBS 12:10
PROVIDERS: PCP Family Medicine; Visit Provider Advanced Practice Midwife
DX: O16.3 Unspecified maternal hypertension, third trimester (principal); Z3A.36 36 weeks gestation of pregnancy
CPT/HCPCS: 59025

== ENCOUNTER 2022-04-08 09:38 | Inpatient (IN) | payer MEDICAID, SELFPAY ==
[2022-04-08] VITALS (49 sets, daily range): BP systolic 129–141; BP diastolic 68–85; PULSE 0–145; RESP 18; TEMP 36.8; O2SAT 100
[2022-04-08 10:19] LABS: HCT 36.9 % (36.0-46.0); HGB 13.2 g/dL (11.2-15.7); MCH 32.5 pg (27.0-33.0); MCHC 35.8 % (32.0-36.0); MCV 91 fL (80-95); MPV 11.7 fL (8.0-11.0); Platelet Count 225 10^3/uL (130-400); RBC 4.06 10^6/uL (3.93-5.22); RDW 12.1 % (11.7-14.6); RDW-SD 39.8 fL
[2022-04-08 10:31] LABS: Source Nasal/Nares
[2022-04-08] MEDS: miSOPROStol 25 MCG TAB 50 MCG PO ×2 (10:50→18:26)
[2022-04-08 11:29] LABS: COVID-19 PCR Negative (Negative)
--- NOTE | 2022-04-08 13:36 | HPE_ITS ---
Date of service: 04/08/22 Time of Service: 11:00 Assessment and Plan Assessment and plan (1) Hypertension affecting in third trimester: Status: Acute Assessment and plan: Options for cervical ripening discussed and More is admitted for cervical ripening at this time. Will start misoprostol per protocol for cervical ripening (2) : Status: Acute (3) Group B streptococcal infection during : Status: Acute Assessment and plan: will start antibiotics for GBS prophylaxis when in active labor OB-HPI Labor/Delivery History of Present Illness Reason for Visit: Induction of Labor Chief Complaint: Scheduled Induction of Labor Indication for Induction: Chronic Hypertension. BUFFY Calculator Estimated Delivery Date Method Current WG Current Estimate 04/27/22 Ultrasound #2 37w 2d Other Estimates 04/28/22 Ultrasound #1 37w 1d Comments: More has a history of induction of labor for hypertension treated with medications during a past . She was not taking any medications until recently and she presents with her partner Rai for cervical ripening. History of Present Expected Delivery Route/Plan - CNM FOB/byfrnd: Rai Escobar (his 2nd child, his first with pt) BG Cecilia GBS positive Would like to be unmedicated for the first time, interested in waterbirth Specific Issues/Plan 1. Covid vaccinated x2, second vaccine July 2021. FOB is vaccinated x2 1a. COVID+ 12/23, MAB given 12/26, Z-rashad for pnuemonia 12/29, referral to pulmonology 01/03 has appointment 01/23 1b. 01/11/22 Prednisone 40 mg daily for 7 days per consult with Pulmonology due to persisitent cough and SOB and she will keep her appointment as scheduled 1c. growth and fluid check @ 32 wks - 71%ile, JONNIE 16.3 1d. Symbicort started at Pulmonology visit 2. Hashimotos thyroiditis - 2a. TSH 11.10 at [facility] on 08/27/21, placed on Levo 50 mcg at that time & current dose 2c. TSH and T4 drawn 10/09/21 TSH 4.65 and Ft4 0.81; [place] to [facility] [place]. [facility] [place] [facility] [place] 10/18/21: increase to 100 mcg qd, target TSH is 2, recheck 02/01- TSH 1.80 /TPO [id number] 3. Anxiety and Bipolar 1 disorder - taking latuda and lamictal- establishing care [facility] 3a. Receiving care with Hali Ruiz at [facility], sees her monthly for psych Rx 4. History of LGA baby - 9-12. BMI 33- early GTT 92, 1-hr at 28 weeks-128 5. Desires genetic screen: cfDNA low risk x6, female, CF negative. AFP=nml risk for NTD 6. History of post hemorrhage with second - I.V. access in labor. 7. Family history von willebrand-More's son. Labs 11/06 normal range X 2 8. History of Genital herpes - Taking acyclovir 800 mg daily 9. Marijuana use - counselled- THC neg on UDS. 10. Migraine - Takes fioricet PRN, magnesium daily recommended 1-2 x per day. 11. FOB: hx blood clot in legs, IDDM. He or his twin brother ?murmur at (Rai is uncertain which brother had it) 12. left sciatica - has seen a chiropractor in the past and would like to see one again. 13. Low lying placenta - 1.8 cms from os, repeat US at 28 wks, scheduled for 02/01/22- 15a. low lying placenta resolved - 2.4 cms from os. 14. Vitamin D level recommended: result 26.4, begin D3 5,000 units x2/wk at 23 wks 15. Hx of gHTN- Rx'ed prior to third preg & IOL at 37 weeks. Negative HTN labs 03/01/22. Weekly BP checks & low dose ASA daily 16. Note to Anesthesia regarding need for consult, see narrative, not indicated at this time, 03/12. 17. Started on Labetalol 200 mg twice daily 03/27/22 and will do twice weekly NST's and induction scheduled for 04/08/22 am 18. 24 hour urine protein 03/27 into 03/28 -- 279.5 PFSH All Active Problems (Updated 04/08/22 @ 13:42 by Ibeth Christianson CNM) Group B streptococcal infection during (Acute) Foot pain, right (Acute) GBS (group B Streptococcus carrier), +RV culture, currently (Acute) Hypertension affecting in third trimester (Acute) (Acute) COVID-19 affecting in second trimester (Acute) Anti-TPO antibodies present (Acute) History of migraine (Acute) Marijuana smoker (Acute) Family history of von Willebrand disease (Acute) Genital herpes simplex virus (HSV) infection in mother affecting (Acute) (Acute) BMI 33.0-33.9,adult (Acute) Asthma (Chronic) using inhaler PRN. Anxiety (Chronic) Bipolar I disorder (Acute) Sarah's thyroiditis (Acute) diagnosed 2020 Medical History 18 weeks gestation of History of abnormal cervical Pap smear History of hypertension required medications throughout second Low lying placenta nos or without hemorrhage, second trimester Threatened miscarriage in early Surgical History H/O dilation and curettage History of tonsillectomy Family History Son Von Willebrands disease Mother Asthma Cancer Heart disease Lung disease Allergies Autoimmune disease Father Asthma Heart disease Social History Smoking/Tobacco Use Status: Former Tobacco Use Quit Date: 05/16/21 Tobacco: How many years used: 11 Second Hand Exposure: Yes Smoking risk assessment performed?: Yes Alcohol Intake: never Drug use: Occasionally Substance use type: marijuana Details: No current tobacco use. No marijuana use currently. Sexually active: Yes Do you think of yourself as: straight/heterosexual Current gender identity: female Do you feel safe at home: Yes Do you feel safe in your relationship?: Yes Female Reproductive History Menstrual control method: none History History 5 Para 3 Hx # Term Pregnancies 3 Multiple births 0 Hx # Pregnancies 0 Ectopic pregnancies 0 AB induced 1 Hx Number of Living Children 3 AB spontaneous 0 Past Pregnancies Del. Date GA/Weeks # Preg Succ Route Wgt Sex Labor Lgth Anesth esia Location Prov Complic 10/15/07 39 No vaginal 8 lb 8 oz Male 24 hours regional [place] 10/11/10 39 No vaginal 9 lb 12 oz Male 16 regional M A hemorrhage 11/11/15 38 No vaginal 8 lb 11 oz Female 12 regional [place] Delivery Date: 10/15/07 Last Updated by: Ibeth Christianson CNM Valentín Delivery Date: 10/11/10 Last Updated by: Ibeth Christianson CNM hemorrhage, blood transfusion, Jacinto. he has Von Willebrands Delivery Date: 11/11/15 Last Updated by: Ibeth Christianson CNM Leigh Meds Allergies and Home Medications Allergies Allergy/AdvReac Type Severity Reaction Status Date / Time No Known Allergies Allergy Verified 04/04/22 13:39 Home Medications Medication Instructions Recorded Confirmed Type acyclovir 800 mg tablet 800 mg PO DAILY #90 tabs 08/27/21 04/08/22 Rx prenat.vits,parth,[id number] 1 tab PO DAILY 08/27/21 04/08/22 History lamotrigine 150 mg tablet 150 mg PO DAILY #30 tabs 08/28/21 04/08/22 Rx lurasidone 40 mg tablet (Latuda) 40 mg PO DAILY #30 tabs 08/28/21 04/08/22 Rx albuterol sulfate 90 mcg/actuation 2 puff inhalation QID PRN 12/25/21 04/08/22 Rx aerosol inhaler (ProAir HFA) shortness of breath or wheezing #6.7 grams cholecalciferol (vitamin D3) 125 125 mcg PO QWEEK #60 caps 01/03/22 04/08/22 Rx mcg (5,000 unit) capsule budesonide-formoterol HFA 160 2 puff inhalation BID #10.2 grams 01/23/22 04/08/22 Rx mcg-4.5 mcg/actuation aerosol inhaler (Symbicort) pantoprazole 20 mg tablet,delayed 20 mg PO DAILY #90 tabs 03/20/22 04/08/22 Rx release (Protonix) labetalol 100 mg tablet 200 mg PO BID #60 tabs 03/28/22 04/08/22 Rx butalbital 50 mg-acetaminophen 300 1 cap PO Q4H PRN pain #10 caps 03/31/22 04/08/22 Rx mg-caffeine 40 mg-codeine 30 mg cap (Fioricet with Codeine) levothyroxine 137 mcg tablet 137 mcg PO DAILY 04/08/22 04/08/22 History (Synthroid) Exam Physical Exam Vital signs: Temp Pulse Resp BP Pulse Ox 98.2 F 98 H 18 138/85 100 04/08/22 10:07 04/08/22 12:56 04/08/22 10:07 04/08/22 12:30 04/08/22 10:07 Detailed Labor and Delivery Exam Dilation: 1 Effacement (%): 20 station: -2 Cervix position: posterior Consistency: medium Tejeda Score: Cervical Points Exam 0 1 2 3 Dilation Closed 1-2cm 3-4 cm 5-6cm Effacement 0-30% 40-50% 60-70% 80% Consistency Firm Medium Soft Station -3 -2 -1,0 +1,+2 Position Posterior Mid Anterior TEJEDA Score(Cervical Ripeness Score): 3 Amniotic Membrane Status: Intact Monitor Mode: External Contraction Frequency(min): occasional mild Fetus A Heart Rate Baseline: 140 Monitor Accelerations: 15 X 15 Monitor Decelerations: None Variability: Moderate (6-25 BPM) Presentation: Vertex Categories: Category I Est. Weight: 7 lb Respiratory Exam Respiratory Exam: Normal Cardiovascular Exam Cardiovascular Exam: Normal Abdominal Exam Abdominal Exam: Normal Exam Exam: Normal Extremities Exam Extremities Exam: Normal (no edema. normal reflexes) Skin Exam Skin Exam: Normal Psychiatric Exam Psychiatric Exam: Normal Results Results Group Beta Strep: Positive Blood Type: O+ Rubella Status: Immune Varicella Immunity: Immune Abnormal Lab Findings: Abnormal Labs 04/08/22 10:10 WBC 11.50 H MPV 11.7 H Risk Assessment Risk for Shoulder Dystocia Historical/Initial OB: POSITIVE FOR: Previous Macrosomia; NEGATIVE FOR: Pelvic Abnormality, Pre- BMI>30 or Previous Shoulder Dystocia Increased Risk?: Yes Delivery Plan @ 36wks: NVD expected. WALTER Delivery Plan @ 40 wks: IOL at 37 weeks EFW 7-0 lbs Risk for Pre-Eclampsia Daily Dose ASA Indicated: Yes Date Initiated/Initials: 04/02/22: Walter Yes, if one or more: POSTIVE FOR: Hx Pre-E/Gest HTN and Chronic HTN; NEGATIVE FOR: Multiple Gestation, Pre-gestational DM, Renal Disease, Systemic Lupus or APA Syndrome Yes, if 2 or more: POSITIVE FOR: BMI>30; NEGATIVE FOR: Nulliparity, Age>= 35 yrs, >10yr btwn pregnancies, ethinicty, Mother/Sister w/ Pre-E or Previous IUGR Risk for Post- Hemorrhage Initial: POSITIVE FOR: Previous PPH (with blood transfusion after delivery of baby weighing 9-12); NEGATIVE FOR: Multiple Gestation, Known Clotting Deficiency, Grand Multiparity or Anticoagulation At Risk?: Yes Risks Reviewed Risks Reviewed Upon Admission: Yes
[2022-04-08] MEDS: Acetaminophen 500 MG TAB 1000 MG PO (14:58)
--- NOTE | 2022-04-08 16:07 | HPE_ITS ---
Date of service: 04/08/22 Time of Service: 16:07 Assessment and Plan Assessment and plan (1) Encounter for induction of labor: Status: Acute Assessment and plan: comfort measures. Will start IV for GBS prophylaxis. Anticipate . More hopes to avoid epidural analgesia and we discussed other pain relief methods. OB-HPI Labor/Delivery History of Present Illness Reason for Visit: Induction of Labor Chief Complaint: Scheduled Induction of Labor Indication for Induction: Chronic Hypertension. BUFFY Calculator Estimated Delivery Date Method Current WG Current Estimate 04/27/22 Ultrasound #2 37w 2d Other Estimates 04/28/22 Ultrasound #1 37w 1d Comments: More is experiencing a lot of pressure and cramping. She complained of a headache and tylenol 1000 mg PO was given with good effect. She is copng well with contraction discomfort. More requested a cervical exam. History of Present Expected Delivery Route/Plan - CNM FOB/byfrnd: Rai Escobar (his 2nd child, his first with pt) BG Cecilia GBS positive Would like to be unmedicated for the first time, interested in waterbirth Specific Issues/Plan 1. Covid vaccinated x2, second vaccine July 2021. FOB is vaccinated x2 1a. COVID+ 12/23, MAB given 12/26, Z-rashad for pnuemonia 12/29, referral to pulmonology 01/03 has appointment 01/23 1b. 01/11/22 Prednisone 40 mg daily for 7 days per consult with Pulmonology due to persisitent cough and SOB and she will keep her appointment as scheduled 1c. growth and fluid check @ 32 wks - 71%ile, JONNIE 16.3 1d. Symbicort started at Pulmonology visit 2. Hashimotos thyroiditis - 2a. TSH 11.10 at UPT on 08/27/21, placed on Levo 50 mcg at that time & current dose 2c. TSH and T4 drawn 10/09/21 TSH 4.65 and Ft4 0.81; [place] [facility] [place] [facility] [place] 10/18/21: increase to 100 mcg qd, target TSH is 2, recheck 02/01- TSH 1.80 /TPO 11/[id number] 3. Anxiety and Bipolar 1 disorder - taking latuda and lamictal- establishing care [facility] 3a. Receiving care with Hali Ruiz at [facility], sees her monthly for psych Rx 4. History of LGA baby - 9-12. BMI 33- early GTT 92, 1-hr at 28 weeks-128 5. Desires genetic screen: cfDNA low risk x6, female, CF negative. AFP=nml risk for NTD 6. History of post hemorrhage with second - I.V. access in labor. 7. Family history von willebrand-More's son. Labs 11/06 normal range X 2 8. History of Genital herpes - Taking acyclovir 800 mg daily 9. Marijuana use - counselled- THC neg on UDS. 10. Migraine - Takes fioricet PRN, magnesium daily recommended 1-2 x per day. 11. FOB: hx blood clot in legs, IDDM. He or his twin brother ?murmur at (Rai is uncertain which brother had it) 12. left sciatica - has seen a chiropractor in the past and would like to see one again. 13. Low lying placenta - 1.8 cms from os, repeat US at 28 wks, scheduled for 02/01/22- 15a. low lying placenta resolved - 2.4 cms from os. 14. Vitamin D level recommended: result 26.4, begin D3 5,000 units x2/wk at 23 wks 15. Hx of gHTN- Rx'ed prior to third preg & IOL at 37 weeks. Negative HTN labs 03/01/22. Weekly BP checks & low dose ASA daily 16. Note to Anesthesia regarding need for consult, see narrative, not indicated at this time, 03/12. 17. Started on Labetalol 200 mg twice daily 03/27/22 and will do twice weekly NST's and induction scheduled for 04/08/22 am 18. 24 hour urine protein 03/27 into 03/28 -- 279.5 PFSH All Active Problems (Updated 04/08/22 @ 16:13 by Ibeth Christianson CNM) Encounter for induction of labor (Acute) Group B streptococcal infection during (Acute) Foot pain, right (Acute) GBS (group B Streptococcus carrier), +RV culture, currently (Acute) Hypertension affecting in third trimester (Acute) (Acute) COVID-19 affecting in second trimester (Acute) Anti-TPO antibodies present (Acute) History of migraine (Acute) Marijuana smoker (Acute) Family history of von Willebrand disease (Acute) Genital herpes simplex virus (HSV) infection in mother affecting (Acute) (Acute) BMI 33.0-33.9,adult (Acute) Asthma (Chronic) using inhaler PRN. Anxiety (Chronic) Bipolar I disorder (Acute) Sarah's thyroiditis (Acute) diagnosed 2020 Medical History 18 weeks gestation of History of abnormal cervical Pap smear History of hypertension required medications throughout second Low lying placenta nos or without hemorrhage, second trimester Threatened miscarriage in early Surgical History H/O dilation and curettage History of tonsillectomy Family History Son Von Willebrands disease Mother Asthma Cancer Heart disease Lung disease Allergies Autoimmune disease Father Asthma Heart disease Social History Smoking/Tobacco Use Status: Former Tobacco Use Quit Date: 05/16/21 Tobacco: How many years used: 11 Second Hand Exposure: Yes Smoking risk assessment performed?: Yes Alcohol Intake: never Drug use: Occasionally Substance use type: marijuana Details: No current tobacco use. No marijuana use currently. Sexually active: Yes Do you think of yourself as: straight/heterosexual Current gender identity: female Do you feel safe at home: Yes Do you feel safe in your relationship?: Yes Female Reproductive History Menstrual control method: none History History 5 Para 3 Hx # Term Pregnancies 3 Multiple births 0 Hx # Pregnancies 0 Ectopic pregnancies 0 AB induced 1 Hx Number of Living Children 3 AB spontaneous 0 Past Pregnancies Del. Date GA/Weeks # Preg Succ Route Wgt Sex Labor Lgth Anesth esia Location Prov Complic 10/15/07 39 No vaginal 8 lb 8 oz Male 24 hours regional [place] 10/11/10 39 No vaginal 9 lb 12 oz Male 16 regional M A hemorrhage 11/11/15 38 No vaginal 8 lb 11 oz Female 12 regional [place] Delivery Date: 10/15/07 Last Updated by: Ibeth Christianson CNM Valentín Delivery Date: 10/11/10 Last Updated by: Ibeth Christianson CNM hemorrhage, blood transfusion, Jacinto. he has Von Willebrands Delivery Date: 11/11/15 Last Updated by: Ibeth Christianson CNM Leigh Meds Allergies and Home Medications Allergies Allergy/AdvReac Type Severity Reaction Status Date / Time No Known Allergies Allergy Verified 04/04/22 13:39 Home Medications Medication Instructions Recorded Confirmed Type acyclovir 800 mg tablet 800 mg PO DAILY #90 tabs 08/27/21 04/08/22 Rx prenat.vits,parth,ixo-[id number]-xpmjm 1 tab PO DAILY 08/27/21 04/08/22 History lamotrigine 150 mg tablet 150 mg PO DAILY #30 tabs 08/28/21 04/08/22 Rx lurasidone 40 mg tablet (Latuda) 40 mg PO DAILY #30 tabs 08/28/21 04/08/22 Rx albuterol sulfate 90 mcg/actuation 2 puff inhalation QID PRN 12/25/21 04/08/22 Rx aerosol inhaler (ProAir HFA) shortness of breath or wheezing #6.7 grams cholecalciferol (vitamin D3) 125 125 mcg PO QWEEK #60 caps 01/03/22 04/08/22 Rx mcg (5,000 unit) capsule budesonide-formoterol HFA 160 2 puff inhalation BID #10.2 grams 01/23/22 04/08/22 Rx mcg-4.5 mcg/actuation aerosol inhaler (Symbicort) pantoprazole 20 mg tablet,delayed 20 mg PO DAILY #90 tabs 03/20/22 04/08/22 Rx release (Protonix) labetalol 100 mg tablet 200 mg PO BID #60 tabs 03/28/22 04/08/22 Rx butalbital 50 mg-acetaminophen 300 1 cap PO Q4H PRN pain #10 caps 03/31/22 04/08/22 Rx mg-caffeine 40 mg-codeine 30 mg cap (Fioricet with Codeine) levothyroxine 137 mcg tablet 137 mcg PO DAILY 04/08/22 04/08/22 History (Synthroid) Exam Physical Exam Vital signs: Temp Pulse Resp BP Pulse Ox 98.2 F 92 H 18 129/68 100 04/08/22 10:07 04/08/22 14:59 04/08/22 10:07 04/08/22 14:43 04/08/22 10:07 Detailed Labor and Delivery Exam Prater Score: Cervical Points Exam 0 1 2 3 Dilation Closed 1-2cm 3-4 cm 5-6cm Effacement 0-30% 40-50% 60-70% 80% Consistency Firm Medium Soft Station -3 -2 -1,0 +1,+2 Position Posterior Mid Anterior Results Results Group Beta Strep: Positive Blood Type: O+ Rubella Status: Immune Varicella Immunity: Immune Abnormal Lab Findings: Abnormal Labs 04/08/22 10:10 WBC 11.50 H MPV 11.7 H Risk Assessment Risk for Shoulder Dystocia Historical/Initial OB: POSITIVE FOR: Previous Macrosomia; NEGATIVE FOR: Pelvic Abnormality, Pre- BMI>30 or Previous Shoulder Dystocia Increased Risk?: Yes Delivery Plan @ 36wks: NVD expected. WALTER Delivery Plan @ 40 wks: IOL at 37 weeks EFW 7-0 lbs Risk for Pre-Eclampsia Daily Dose ASA Indicated: Yes Date Initiated/Initials: 04/02/22: Walter Yes, if one or more: POSTIVE FOR: Hx Pre-E/Gest HTN and Chronic HTN; NEGATIVE FOR: Multiple Gestation, Pre-gestational DM, Renal Disease, Systemic Lupus or APA Syndrome Yes, if 2 or more: POSITIVE FOR: BMI>30; NEGATIVE FOR: Nulliparity, Age>= 35 yrs, >10yr btwn pregnancies, ethinicty, Mother/Sister w/ Pre-E or Previous IUGR Risk for Post- Hemorrhage Initial: POSITIVE FOR: Previous PPH (with blood transfusion after delivery of baby weighing 9-12); NEGATIVE FOR: Multiple Gestation, Known Clotting Deficiency, Grand Multiparity or Anticoagulation At Risk?: Yes Risks Reviewed Risks Reviewed Upon Admission: Yes
[2022-04-08] MEDS: Penicillin G POT. 5,000,000 UNITS in Normal Saline 100 ML 200 UNITS IVPB (16:47)
[2022-04-08] MEDS: Budesonide/Formoterol 160/4.5 6 GM 60 PUFF INH IH (20:05)
[2022-04-08] MEDS: Labetalol 100 MG TAB 200 MG PO (20:05)
[2022-04-08] MEDS: Penicillin G POT. 3,000,000 UNITS in Normal Saline 50 ML 100 UNITS IVPB (20:23)
[2022-04-08] MEDS: Zolpidem 5 MG TAB 10 MG PO (22:31)
[2022-04-08] MEDS: Lurasidone 40 MG TAB PO (22:31)
[2022-04-08] MEDS: lamoTRIgine 100 MG TAB 150 MG PO (22:33)
[2022-04-09] VITALS (42 sets, daily range): BP systolic 115–172; BP diastolic 65–82; PULSE 0–103; RESP 16–18; TEMP 36.5–36.8; O2SAT 99
[2022-04-09] MEDS: Penicillin G POT. 3,000,000 UNITS in Normal Saline 50 ML 100 UNITS IVPB ×6 (00:23→20:29)
--- NOTE | 2022-04-09 03:39 | W.PM.OBNL1 ---
Date of service: 04/09/22 Time of Service: 03:39 Pelvic Exam Comments: pelvic exam deferred Assessment and Plan Assessment and plan (1) Encounter for induction of labor: Status: Acute Assessment and plan: Will reassess when she awakes. Consider additional doses of misoprostol if indicated for further cervical ripening. Objective Abnormal lab results 04/08/22 Range/Units 10:10 WBC 11.50 H (4.4-10.8) 10^3/uL MPV 11.7 H (8.0-11.0) fL Temp Pulse Resp BP Pulse Ox 98.1 F 83 18 137/65 100 04/09/22 01:38 04/09/22 01:38 04/09/22 01:38 04/09/22 01:38 04/08/22 10:07 Laboratory Results WBC 11.50 10^3/uL (4.4-10.8) H 04/08/22 10:10 RBC 4.06 10^6/uL (3.93-5.22) 04/08/22 10:10 Hgb 13.2 g/dL (11.2-15.7) 04/08/22 10:10 Hct 36.9 % (36.0-46.0) 04/08/22 10:10 MCV 91 fL (80-95) 04/08/22 10:10 MCH 32.5 pg (27.0-33.0) 04/08/22 10:10 MCHC 35.8 % (32.0-36.0) 04/08/22 10:10 RDW 12.1 % (11.7-14.6) 04/08/22 10:10 Plt Count 225 10^3/uL (130-400) 04/08/22 10:10 MPV 11.7 fL (8.0-11.0) H 04/08/22 10:10 COVID-19 Source Nasal/Nares 04/08/22 10:00 SARS-CoV-2 (PCR) Negative (Negative) 04/08/22 10:00 Patient ABO/Rh O Positive 04/08/22 10:10 Antibody Screen NEGATIVE 04/08/22 10:10 Subjective Interval history since last seen: More requested ambien for sleep. She has been sleeping well. the 1000 dose of misoprostol was held by the nurse due to contractions every 3-4 minutes. She wasn't experiencing pain with the contractions. She has been sleeping well and was encouraged to call if she wakes up. B.P. is 129-140/65-85. Results Hemoglobin/Hematocrit: Hgb 13.2 g/dL (11.2-15.7) 04/08/22 10:10 Hct 36.9 % (36.0-46.0) 04/08/22 10:10 Abnormal Lab Findings: Abnormal Labs 04/08/22 10:10 WBC 11.50 H MPV 11.7 H
[2022-04-09] MEDS: Labetalol 100 MG TAB 200 MG PO ×2 (09:00→20:00)
[2022-04-09] MEDS: Acyclovir 400 MG TAB 800 MG PO (09:00)
[2022-04-09] MEDS: miSOPROStol 25 MCG TAB 50 MCG PO ×2 (09:36→14:52)
--- NOTE | 2022-04-09 11:05 | W.PM.OBNL1 ---
Date of service: 04/09/22 Time of Service: 11:05 Pelvic Exam Dilation: 1.5 Effacement (%): 50 station: -1 Cervix Position: mid Consistency: soft Vaginal Exam Presentation: Vertex Contractions Monitor Mode: External Contraction Frequency(min): irregular Contraction Duration(sec): mild Intensity: Mild Fetus A Monitor: External (US) Heart Rate Baseline: 130 Presentation: Vertex Variability: Moderate (6-25 BPM) Categories: Category I FHR Rhythm: Regular Characteristics: Normal Accelerations: 15 X 15 Decelerations: None Amniotic Membrane Status: Intact Assessment and Plan Assessment and plan (1) Encounter for induction of labor: Status: Acute Assessment and plan: 3rd dose of misoprostol was administered. Will plan to continue to assess labor pattern. Will consider AROM if appropriate. More hopes to avoid needing epidural analgesia and would like to try AROM before pitocin. Objective Temp Pulse Resp BP Pulse Ox 98.1 F 90 18 134/81 99 04/09/22 09:15 04/09/22 09:15 04/09/22 09:15 04/09/22 09:15 04/09/22 09:15 Laboratory Results WBC 11.50 10^3/uL (4.4-10.8) H 04/08/22 10:10 RBC 4.06 10^6/uL (3.93-5.22) 04/08/22 10:10 Hgb 13.2 g/dL (11.2-15.7) 04/08/22 10:10 Hct 36.9 % (36.0-46.0) 04/08/22 10:10 MCV 91 fL (80-95) 04/08/22 10:10 MCH 32.5 pg (27.0-33.0) 04/08/22 10:10 MCHC 35.8 % (32.0-36.0) 04/08/22 10:10 RDW 12.1 % (11.7-14.6) 04/08/22 10:10 Plt Count 225 10^3/uL (130-400) 04/08/22 10:10 MPV 11.7 fL (8.0-11.0) H 04/08/22 10:10 COVID-19 Source Nasal/Nares 04/08/22 10:00 SARS-CoV-2 (PCR) Negative (Negative) 04/08/22 10:00 Patient ABO/Rh O Positive 04/08/22 10:10 Antibody Screen NEGATIVE 04/08/22 10:10 Subjective Interval history since last seen: More slept well with ambien. She awoke this morning and took a shower. She requested a wlk outside which she did do and she would like to resume induction of labor. She is having mild contractions which are not painful. B.P. 134/81 Results Hemoglobin/Hematocrit: Hgb 13.2 g/dL (11.2-15.7) 04/08/22 10:10 Hct 36.9 % (36.0-46.0) 04/08/22 10:10 Abnormal Lab Findings: Abnormal Labs 04/08/22 10:10 WBC 11.50 H MPV 11.7 H
--- NOTE | 2022-04-09 19:50 | W.PM.OBNL1 ---
Date of service: 04/09/22 Time of Service: 19:50 Pelvic Exam Comments: 2 cms at 80% -1 at 1700 Contractions Monitor Mode: External Contraction Frequency(min): every 3-4 Contraction Duration(sec): 50-60 Intensity: Mild/Moderate Fetus A Monitor: External (US) Heart Rate Baseline: 130 Variability: Moderate (6-25 BPM) Categories: Category I Characteristics: Normal Accelerations: 15 X 15 Decelerations: None Assessment and Plan Assessment and plan (1) Encounter for induction of labor: Status: Acute Assessment and plan: anticipate . Continue to assess for signs of active labor. comfort measures. Objective Temp Pulse Resp BP Pulse Ox 98.1 F 86 18 144/75 H 99 04/09/22 19:14 04/09/22 19:14 04/09/22 19:14 04/09/22 19:14 04/09/22 13:07 Laboratory Results WBC 11.50 10^3/uL (4.4-10.8) H 04/08/22 10:10 RBC 4.06 10^6/uL (3.93-5.22) 04/08/22 10:10 Hgb 13.2 g/dL (11.2-15.7) 04/08/22 10:10 Hct 36.9 % (36.0-46.0) 04/08/22 10:10 MCV 91 fL (80-95) 04/08/22 10:10 MCH 32.5 pg (27.0-33.0) 04/08/22 10:10 MCHC 35.8 % (32.0-36.0) 04/08/22 10:10 RDW 12.1 % (11.7-14.6) 04/08/22 10:10 Plt Count 225 10^3/uL (130-400) 04/08/22 10:10 MPV 11.7 fL (8.0-11.0) H 04/08/22 10:10 COVID-19 Source Nasal/Nares 04/08/22 10:00 SARS-CoV-2 (PCR) Negative (Negative) 04/08/22 10:00 Patient ABO/Rh O Positive 04/08/22 10:10 Antibody Screen NEGATIVE 04/08/22 10:10 Subjective Interval history since last seen: SROM performed at 1700 for a large amount of clear fluid. Contractions have become slightly stronger since AROM but More does not report a lot of discomfort. Results Hemoglobin/Hematocrit: Hgb 13.2 g/dL (11.2-15.7) 04/08/22 10:10 Hct 36.9 % (36.0-46.0) 04/08/22 10:10 Abnormal Lab Findings: Abnormal Labs 04/08/22 10:10 WBC 11.50 H MPV 11.7 H
[2022-04-09] MEDS: Budesonide/Formoterol 160/4.5 6 GM 60 PUFF INH IH (20:00)
[2022-04-09] MEDS: Oxytocin/Normal Saline 30 UNIT/500 ML BAG 2 UNITS IV (20:18)
[2022-04-09] MEDS: Nalbuphine 10 MG/ML AMP SC (20:55)
[2022-04-09] MEDS: lamoTRIgine 100 MG TAB 150 MG PO (21:46)
[2022-04-09] MEDS: Lurasidone 40 MG TAB PO (21:46)
[2022-04-10] VITALS (112 sets, daily range): BP systolic 103–157; BP diastolic 52–83; PULSE 68–140; RESP 16–18; TEMP 36.4–36.8; O2SAT 84–100; BMI 38.8
[2022-04-10] MEDS: Penicillin G POT. 3,000,000 UNITS in Normal Saline 50 ML 100 UNITS IVPB ×2 (00:24→04:27)
--- NOTE | 2022-04-10 01:16 | ANES.PREOP_ITS ---
General Info Date of Service Date Performed: 04/10/22 Height: 5 ft 9 in Weight: 119.295 kg Body Mass Index (BMI): 38.8 Meds Allergies and Home Medications Allergies Allergy/AdvReac Type Severity Reaction Status Date / Time No Known Allergies Allergy Verified 04/04/22 13:39 Home Medication Medication Instructions Recorded acyclovir 800 mg tablet 800 mg PO DAILY #90 tabs 08/27/21 prenat.vits,parth,[id number] 1 tab PO DAILY 08/27/21 lamotrigine 150 mg tablet 150 mg PO DAILY #30 tabs 08/28/21 lurasidone 40 mg tablet (Latuda) 40 mg PO DAILY #30 tabs 08/28/21 albuterol sulfate 90 mcg/actuation 2 puff inhalation QID PRN 12/25/21 aerosol inhaler (ProAir HFA) shortness of breath or wheezing #6.7 grams cholecalciferol (vitamin D3) 125 125 mcg PO QWEEK #60 caps 01/03/22 mcg (5,000 unit) capsule budesonide-formoterol HFA 160 2 puff inhalation BID #10.2 grams 01/23/22 mcg-4.5 mcg/actuation aerosol inhaler (Symbicort) pantoprazole 20 mg tablet,delayed 20 mg PO DAILY #90 tabs 03/20/22 release (Protonix) labetalol 100 mg tablet 200 mg PO BID #60 tabs 03/28/22 butalbital 50 mg-acetaminophen 300 1 cap PO Q4H PRN pain #10 caps 03/31/22 mg-caffeine 40 mg-codeine 30 mg cap (Fioricet with Codeine) levothyroxine 137 mcg tablet 137 mcg PO DAILY 04/08/22 (Synthroid) Current Visit Medications: Current Medications Generic Name Dose Route Start Last Admin Trade Name Freq PRN Reason Stop Dose Admin Acyclovir 800 mg 04/09/22 08:30 04/09/22 09:00 Acyclovir 400 Mg Tab PO 800 mg DAILY MUKESH Administration Budesonide/Formoterol Fumarate 2 puff 04/08/22 20:00 04/09/22 20:00 Budesonide/Formoterol 160/4.5 6 Gm 60 Puff Inh IH 2 puffs BID [facility] Administration Device 1 each 04/08/22 10:00 Inhaler, Assist Device DIRECTED [facility] Penicillin G Potassium 3,000, 50 mls @ 100 mls/hr 04/08/22 16:30 04/10/22 00:24 000 units/ Sodium Chloride IVPB 100 mls/hr Q4H MUKESH Administration Sodium Chloride 500 mls @ 0 mls/hr 04/08/22 16:16 Saline 500ml Bag IV PRN PRN As Directed Oxytocin/Sodium Chloride 30 unit in 500 mls @ 2 mls/hr 04/09/22 20:00 04/10/22 00:00 Pitocin/Normal Saline IV 9 milliunits/min INFUSION MUKESH 9 mls/hr Titration Protocol 2 MILLIUNITS/MIN IV Miscellaneous Supplies 1 each 04/08/22 16:30 Iv Access IV DIRECTED [facility] Labetalol HCl 200 mg 04/08/22 20:00 04/09/22 20:00 Labetalol 100 Mg Tab PO 200 mg BID MUKESH Administration Lamotrigine 150 mg 04/08/22 22:30 04/09/22 21:46 Lamotrigine 100 Mg Tab PO 150 mg HS MUKESH Administration Levothyroxine Sodium 137 mcg 04/09/22 07:00 04/09/22 05:37 Levothyroxine 137 Mcg Tab PO 137 mcg DAILY@0700 MUKESH Administration Lurasidone HCl 40 mg 04/08/22 22:30 04/09/22 21:46 Lurasidone 40 Mg Tab PO 40 mg HS MUKESH Administration Misoprostol 50 mcg 04/08/22 10:00 04/09/22 22:03 Misoprostol 25 Mcg Tab PO Not Given Q4H [facility] Sodium Chloride 0 ml 04/08/22 16:16 Normal Saline Flush 10 Ml Syr IVP PRN PRN Terbutaline Sulfate 0.25 mg 04/08/22 09:38 Terbutaline 1 Mg/Ml Vial SC PRN PRN PFSH Active Problems Active Problems: Problem Status Onset Code Encounter for induction of labor Z34.90 Group B streptococcal infection during O98.819, B95.1 Foot pain, right M79.671 GBS (group B Streptococcus carrier), +RV culture, currently O99.820 Hypertension affecting in third trimester O16.3 Z34.90 COVID-19 affecting in second trimester O98.512, U07.1 Anti-TPO antibodies present R76.8 History of migraine Z86.69 Marijuana smoker F12.90 Family history of von Willebrand disease Z83.2 Genital herpes simplex virus (HSV) infection in mother affecting O98.319, A60.09 Z34.90 BMI 33.0-33.9,adult Z68.33 Asthma J45.909 Anxiety F41.9 Bipolar I disorder F31.9 Sarah's thyroiditis E06.3 Medical History Medical History 18 weeks gestation of History of abnormal cervical Pap smear History of hypertension required medications throughout second Low lying placenta nos or without hemorrhage, second trimester Threatened miscarriage in early Surgical History Surgical History H/O dilation and curettage History of tonsillectomy Tobacco Smoking/Tobacco Use Status: Former Tobacco Use Second hand exposure: Yes Alcohol Alcohol Intake: never Substance Use Substance use: Occasionally Substance use type: marijuana Details: No current tobacco use. No marijuana use currently. Prental History History 5 Para 3 Hx # Term Pregnancies 3 Multiple births 0 Hx # Pregnancies 0 Ectopic pregnancies 0 AB induced 1 Hx Number of Living Children 3 AB spontaneous 0 Past Pregnancies Del. Date GA/Weeks # Preg Succ Route Wgt Sex Labor Lgth Anesth esia Location [facility] 10/15/07 39 No vaginal 3855.535 g Male 24 hours regional [place] 10/11/10 39 No vaginal 4422.526 g Male 16 regional M A hemorrhage 11/11/15 38 No vaginal 3940.584 g Female 12 regional [place] Delivery Date: 10/15/07 Last Updated by: Ibeth Christianson CNM Valentín Delivery Date: 10/11/10 Last Updated by: Ibeth Christianson CNM hemorrhage, blood transfusion, Jacinto. he has Von Willebrands Delivery Date: 11/11/15 Last Updated by: Ibeth Christianson CNM Leigh Vital Signs and Lab Results Vital Signs Most Recent Vital Signs in EMR: Most Recent Vital Signs Temp Pulse Resp BP Pulse Ox 36.5 C 75 18 139/70 99 04/10/22 00:00 04/09/22 22:58 04/09/22 19:14 04/09/22 22:58 04/09/22 13:07 Lab Results Result Diagrams: 04/08/22 10:10 Blood Type / Crossmatch: Patient ABO/Rh O Positive 04/08/22 Antibody Screen NEGATIVE 04/08/22 Complete Blood Count: White Blood Count 11.50 10^3/uL (4.4-10.8) H 04/08/22 10:10 Red Blood Count 4.06 10^6/uL (3.93-5.22) 04/08/22 10:10 Hemoglobin 13.2 g/dL (11.2-15.7) 04/08/22 10:10 Hematocrit 36.9 % (36.0-46.0) 04/08/22 10:10 Platelet Count 225 10^3/uL (130-400) 04/08/22 10:10 Complete Metabolic Panel: Sodium Level 136 mmol/L (136-145) 03/31/22 18:20 Potassium Level 4.1 mmol/L (3.5-5.1) 03/31/22 18:20 Chloride Level 103 mmol/L (98-107) 03/31/22 18:20 Carbon Dioxide Level 22.5 mmol/L (21.0-32.0) 03/31/22 18:20 Blood Urea Nitrogen 10 mg/dL (7-18) 03/31/22 18:20 Creatinine 0.6 mg/dL (0.55-1.02) 03/31/22 18:20 Estimated GFR/1.73 m2 >= 60.00 (mL/min/1.73m2) 03/31/22 18:20 Calcium Level 8.8 mg/dL (8.5-10.1) 03/31/22 18:20 Albumin 2.8 g/dL (3.4-5.0) L 03/31/22 18:20 Glucose Level 100 mg/dL (74-106) 03/31/22 18:20 Liver Function Panel: Alanine Aminotransferase (ALT/SGPT) 18 U/L (14-59) 03/31/22 18: 20 Aspartate Amino Transf (AST/SGOT) 13 U/L (15-37) L 03/31/22 18: 20 Coagulation Panel: No Data to Display Cardiac Panel: No Data to Display Arterial Blood Gas: No Data to Display Venous Blood Gas: No Data to Display Pancreas Panel: No Data to Display Thyroid Panel: No Data to Display Infectious Disease: Coronavirus (COVID-19)(PCR) Negative (Negative) 04/08/22 10:00 Coronavirus 2019 Source Nasal/Nares 04/08/22 10:00 Blood Cultures: No Data to Display Toxicology Panel: Urine Amphetamines Screen Negative (Negative) 03/27/22 13:05 Urine Benzodiazepines Screen Negative (Negative) 03/27/22 13:0 5 Urine Barbiturates Screen Negative (Negative) 03/27/22 13:05 Urine Cocaine Screen Negative (Negative) 03/27/22 13:05 Urine Methadone Screen Negative (Negative) 03/27/22 13:05 Urine Opiates Screen Negative (Negative) 03/27/22 13:05 Ur Tricyclic Antidepressants Screen Negative (Negative) 13:05 Ur Tetrahydrocannabinol (THC) Scrn Negative (Negative) 2 13:05 Panel: No Data to Display Imaging and Studies Imaging and Studies Study information below may be from another EMR and interpreted by another provider. Please see original notes in EMR for more complete details. EKG Summary: 12/29/21: sinus. Anesthesia Assessment and Plan Anesthesia History Personal History: No History of Anesthesia Complications Family History: No Family History of Anesthesia Complications Exercise Tolerance Exercise Tolerance: Metabolic Equivalents>4 Cardiac & Pulmonary Exam Cardiac Exam: Normal S1/S2 Heart Sounds Pulmonary Exam: Clear Bilateral Breath Sounds Implantable Cardiac Device Does patient have a Pacemaker or an ICD?: No Airway Exam Known Difficult Airway: No Mallampati Class: 4 Mouth Opening: Narrow (< 3cm) Thyromental Distance: Greater than 3 cm Neck Range of Motion: Full ROM Neck Circumference: Normal Teeth Condition: Normal Dentition ASA Classification ASA Score: ASA 2 Emergency Case?: No NPO Status NPO Status: Full Stomach Status Status: Other Anesthesia Plan Resuscitation Status: Full Code Anesthesia Technique: Epidural Anesthesia Airway Planned: Natural Airway Pain Management: Epidural Monitors Used: Standard Monitors Preoperative Comments:: 31 yo requests labor epidural. Previous neuraxial for labor at other facilities. Currently being induced for hypertension. Sig PMHx: recent COVID, Asthma/former smoker (albuterol, symbicort), HTN (labetalol)bipolar, hashimotos (levothyroxine), family history of Von Willebrands, GERD (pantoprazole) Currently misoprostol, Pitocin, last check 2 cm. Plt 225.
--- NOTE | 2022-04-10 01:22 | W.PM.OBNL1 ---
Date of service: 04/10/22 Time of Service: Pelvic Exam Dilation: 3 Effacement (%): 90 station: 0 Cervix Position: posterior Consistency: soft Pooling: Positive Contractions Monitor Mode: External Contraction Frequency(min): every 3 Contraction Duration(sec): 60 Intensity: Moderate/Strong Fetus A Monitor: External (US) Heart Rate Baseline: 125 Variability: Moderate (6-25 BPM) Categories: Category II FHR Rhythm: Irregular (occasionaal skipped beats) Characteristics: Normal Accelerations: 10 X 10 Decelerations: Variable Recurrence: Recurrent Assessment Note: recurrent variable decelerations from baseline of 125 down to 100-110 with contractions. Assessment and Plan Assessment and plan (1) Encounter for induction of labor: Status: Acute Assessment and plan: [facility] was paged for epidural. IV bolus of 500 cc was administered. (2) cardiac arrhythmia: Status: Acute Assessment and plan: Continue to assess heart rate pattern. Pitocin was stopped due to patient discomfort and FHR decelerations. Will resume pitocin infusion if indicated. Anticipate Objective Temp Pulse Resp BP Pulse Ox 97.7 F 75 18 139/70 99 04/10/22 00:00 04/09/22 22:58 04/09/22 19:14 04/09/22 22:58 04/09/22 13:07 Laboratory Results WBC 11.50 10^3/uL (4.4-10.8) H 04/08/22 10:10 RBC 4.06 10^6/uL (3.93-5.22) 04/08/22 10:10 Hgb 13.2 g/dL (11.2-15.7) 04/08/22 10:10 Hct 36.9 % (36.0-46.0) 04/08/22 10:10 MCV 91 fL (80-95) 04/08/22 10:10 MCH 32.5 pg (27.0-33.0) 04/08/22 10:10 MCHC 35.8 % (32.0-36.0) 04/08/22 10:10 RDW 12.1 % (11.7-14.6) 04/08/22 10:10 Plt Count 225 10^3/uL (130-400) 04/08/22 10:10 MPV 11.7 fL (8.0-11.0) H 04/08/22 10:10 COVID-19 Source Nasal/Nares 04/08/22 10:00 SARS-CoV-2 (PCR) Negative (Negative) 04/08/22 10:00 Patient ABO/Rh O Positive 04/08/22 10:10 Antibody Screen NEGATIVE 04/08/22 10:10 Subjective Interval history since last seen: More is using nitrous oxide and received a dose of nubain 10 mg SC for relaxation with good effect. Pitocin was started and increased to a rate of 9 mu/min and her contractions became strong. She requested an epidural for pain relief. Results Hemoglobin/Hematocrit: Hgb 13.2 g/dL (11.2-15.7) 04/08/22 10:10 Hct 36.9 % (36.0-46.0) 04/08/22 10:10 Abnormal Lab Findings: Abnormal Labs 04/08/22 10:10 WBC 11.50 H MPV 11.7 H
--- NOTE | 2022-04-10 02:03 | W.ANESNEU ---
Epidural/Spinal Catheter Date Performed: 04/10/22 Procedure Start: 01:45 Procedure Stop: 01:55 Requesting Provider: Ibeth Christianson Procedure Location: Obstetrics Reason Performed: Labor Epidural Standard Monitors Applied: ECG, Blood Pressure, SpO2 and See EMR for corresponding vital signs Patient Position: Sitting Sedation Given (Indicate Dose Given): No Sedation given Patient Mental Status: Awake Sterility: Hand Hygiene Procedure Location: L4-L5 Interspace Epidural Needle: Tuohy 17 Guage Needle Length: 3.5 Inch Needle Approach: Midline Epidural Procedure: Skin Prepped, 1% Lidocaine to skin and subcutaneous tissue with 25G needle, JODIE to Saline Used and Epidural Catheter Placed (wire reinforced. ) Catheter Placed?: Catheter Placed Test Dose (Indicate Dose Given): 3ml 1.5% Lidocaine with 1:200K Epinephrine Given and Negative Test Dose Loss of Resistance Depth (cm): 6 Catheter depth at skin (cm): 13 Dressing: [place] Dressing Placed and Mastisol Used Epidural Provider Bolus (Indicate Dose Given): Total Ropivacaine 0.125% with Fentanyl 2mcg/ml Given from pump. (ml) (7 mL + 5 mL) Dose:: 12 mL Additives (Indicate Dose Given ): None Infusion Medication: Medication Infusion Began Medication Infusion: Ropivacaine 0.125% with Fentanyl 2mcg/ml Maintenance Infusion Rate (ml/hour): 10 PCEA Bolus Dose (ml): 5 Block Level: T10 Paresthesia: None Ultrasound: Used to ava site Number of Attempts (See previous attempts in note section): 1 Procedure Tolerated: No Complications Procedure Outcome: Successful Procedure Comment:: Currently using nitrous, pitocin off due to variable decels, fluid bolus ordered by CNM. Marked with US, good JODIE, catheter threaded with ease, bolus off pump tolerated well. States that she is more comfortable after the loading dose, left side slightly more dense than right. Educated on the PCEA function, narcan for itching and nausea. Performed By: Colt Martinez
[2022-04-10] MEDS: Lactated Ringers 500 ML IV (02:57)
--- NOTE | 2022-04-10 03:04 | W.PM.OBNL1 ---
Date of service: 04/10/22 Time of Service: 03:04 Pelvic Exam Dilation: 6 Effacement (%): 100 station: 0 Cervix Position: mid Consistency: soft Vaginal Exam Presentation: Vertex Pooling: Positive Contractions Monitor Mode: External Contraction Frequency(min): every 5 Contraction Duration(sec): 60 Intensity: Moderate/Strong Fetus A Monitor: External (US) Heart Rate Baseline: 120 Presentation: Vertex Variability: Minimal (1-5 BPM) Categories: Category III FHR Rhythm: Irregular (arrhythmia with missed beats every 10-60 seconds. ) Accelerations: Absent Decelerations: Prolonged Assessment Note: FHR decelerations with contractions became more prolonged with one decelerations at 0255 down to 40s-50s with slow return to baseline of 120. Prolonged deceleration lasted 3 minutes. IV bolus 500 cc started and O2 administered via mask. [facility] was notified of BP 103/56 and ephedrine 5 mg IV was administered. Dr. Acosta was also notified and is en route to the center. FHR returned to baseline of 130 with minimal variability noted. One late deceleration down to 110 with contraction. FHR tracing is now category 2. Assessment and Plan Assessment and plan (1) cardiac arrhythmia: Status: Acute (2) Encounter for induction of labor: Status: Acute Assessment and plan: Continue to assess FHR pattern and labor progress. Barr catheter placed. (3) Hypotensive episode: Status: Acute Assessment and plan: BP 133/57 after ephedrine dose. [facility]t [facility] present on the unit Objective Temp Pulse Resp BP Pulse Ox 97.7 F 78 18 122/61 100 04/10/22 00:00 04/10/22 03:03 04/09/22 19:14 04/10/22 03:03 04/10/22 03:02 Laboratory Results WBC 11.50 10^3/uL (4.4-10.8) H 04/08/22 10:10 RBC 4.06 10^6/uL (3.93-5.22) 04/08/22 10:10 Hgb 13.2 g/dL (11.2-15.7) 04/08/22 10:10 Hct 36.9 % (36.0-46.0) 04/08/22 10:10 MCV 91 fL (80-95) 04/08/22 10:10 MCH 32.5 pg (27.0-33.0) 04/08/22 10:10 MCHC 35.8 % (32.0-36.0) 04/08/22 10:10 RDW 12.1 % (11.7-14.6) 04/08/22 10:10 Plt Count 225 10^3/uL (130-400) 04/08/22 10:10 MPV 11.7 fL (8.0-11.0) H 04/08/22 10:10 COVID-19 Source Nasal/Nares 04/08/22 10:00 SARS-CoV-2 (PCR) Negative (Negative) 04/08/22 10:00 Patient ABO/Rh O Positive 04/08/22 10:10 Antibody Screen NEGATIVE 04/08/22 10:10 Subjective Interval history since last seen: Epidural placed with good effect by [facility]. Cervix checked after epidural and 6 cms/100/0 station. FHR decelerations with contractions became more prolonged with one decelerations at 0255 down to 40s-50s with slow return to baseline of 120. Prolonged deceleration lasted 3 minutes. IV bolus 500 cc started and O2 administered via mask. [facility] was notified of BP 103/56 and ephedrine 5 mg IV was administered. Dr. Acosta was also notified and is en route to the center Results Hemoglobin/Hematocrit: Hgb 13.2 g/dL (11.2-15.7) 04/08/22 10:10 Hct 36.9 % (36.0-46.0) 04/08/22 10:10 Abnormal Lab Findings: Abnormal Labs 04/08/22 10:10 WBC 11.50 H MPV 11.7 H
[2022-04-10] MEDS: ePHEDrine 50 MG/ML VIAL IVP ×5 (03:05→04:28)
--- NOTE | 2022-04-10 05:08 | W.OBDELIVERY ---
Date of service: 04/10/22 Time of Service: 05:08 OB Labor/ Delivery Information Baby A Delivery Delivery Method: Spontaneaous Presentation: Vertex Amniotic Fluid: Clear Estimated Blood Loss: 200 Delivery Outcome: Liveborn Complications: none Infant Transferred: Remains with Mother Note: FHTs 120s during first stage of labor. FHTs 120s in second stage with persiistent variable and prolonged decelerations. ephedrine 5 mg Iv was administered x 5 for BP in the 110-50s range and persistent decelerations. The OR team were called to prepare for a possible and [facility] was in house. An IV bolus of 500 cc was also given with return of FHR to baseline of 120. More was examined and was 9 cms. After pushing she progressed wuickly to full dilation and began pushing. Second stage huddle was done.Dr Acosta and Dr Hurtado were present for the second stage. Spontaneous delivery of female delivered in ALECIA position. Baby was placed on mother's abdomen and dried and stimulated. Spontaneous cry. Cord was clamped and cut by the baby's father. The placenta delivered spontaneously and appears to by intact with a three vessel cord. Pitocin 30 units was administered IVafter delivery of the baby. The perineum was inspected and was intact . The baby did breastfeed. After delivery, Mother and baby and father of the baby were stable and bonding well in the delivery room and there were no complications. The baby's name is Ewa. Routine post care and will continue to monitor BP. Providers Doctor: Sheri Acosta Nurse Umbrella Tipper Machine: Ibeth Christianson Business Process Consultant: Jason Hurtado Nurse: Madhavi Zacarias Nurse: Amaya Cedeno Labor/Delivery Information Number of Babies in Womb: 1 Steroids Given: None Reason Steroids Not Administered: N/A Group Beta Strep: Positive Antibiotics Administered: Yes Rubella Status: Immune Blood Type: O+ Varicella Immunity: Immune Stages of Labor Onset of Labor Date: 04/08/22 Onset of Labor Time: 10:11 Complete Dilatation Date: 04/10/22 Complete Dilatation Time: 04:32 Labor - Stage 1 Duration: 48 hours and 0 minutes ROM Baby A: 04/09/22 ROM Baby A: 17:00 ROM Total Time- Baby A: [id number] Infant Delivery Date-Baby A: 04/10/22 Infant Delivery Time-Baby A: 04:47 Labor Stage 2 Duration: 15 minutes Placenta Delivery Date-Baby A: 04/10/22 Placenta Delivery Time-Baby A: 04:55 Labor-Stage 3 Duration: 8 minutes Total Length of Labor-Baby A: 42 hours and 36 minutes Placenta Status: Delivered Baby A Infant Gender: Female Gestational Status: Early Term (37-38.6 wks) Gestational Age in Weeks/Days: 37 Weeks and 4 Days Score-1 Minute Interval(Baby A) Heart Rate-1 minute: 100 BPM or Greater Respiratory Effort- 1 minute: Spontaneous/Strong Cry Muscle Tone-1 minute: Active Movement Reflex Response-1 minute: Minimal Response Color-1 minute: Bluish Hands or Feet Total Score-1 minute: 8 Score-5 Minute Interval(Baby A) Heart Rate- 5 minute: 100 BPM or Greater Respiratory Effort-5 minute: Spontaneous/Strong Cry Muscle Tone-5 minute: Active Movement Reflex Response-5 minute: Prompt Response Color-5 minute: Bluish Hands or Feet Total Score- 5 minute: 9
[2022-04-10] MEDS: Docusate Sodium 100 MG CAP PO (07:52)
[2022-04-10] MEDS: Ibuprofen 600 MG TAB PO ×3 (07:52→23:03)
[2022-04-10] MEDS: Acyclovir 400 MG TAB 800 MG PO (07:52)
[2022-04-10] MEDS: Acetaminophen 325 MG TAB 650 MG PO ×4 (07:53→23:03)
--- NOTE | 2022-04-10 12:01 | W.ANESPOSTOP ---
Postoperative Evaluation Date, Time and Location Date Performed: 04/10/22 Time Performed: 12:01 Patient Location: Obstetrics Vital Signs Most Recent Imported Vital Signs: Most Recent Vital Signs Temp Pulse Resp BP Pulse Ox 36.6 C 76 16 127/65 96 04/10/22 07:40 04/10/22 08:16 04/10/22 07:40 04/10/22 07:43 04/10/22 08:16 Pain Score Most Recent Pain Score: Most Recent Pain Score Pain Level [Abdomen] 04/10/22 07:40 Pain Level 04/10/22 07:53 Assessment Mental Status: Awake (Alert & Oriented to Patient Baseline) Airway and Respiratory Function: Patent airway with normal (patient baseline) respiratory exam Cardiovascular Function: Hemodynamically Stable Hydration Status: Adequately Hydrated Nausea & Vomiting: No Nausea or Vomiting Pain: Pt. Denies Any Pain Peripheral Nerve Block: Patient did not receive a nerve block
[2022-04-10] MEDS: Labetalol 100 MG TAB 200 MG PO ×2 (12:48→19:57)
--- NOTE | 2022-04-10 13:21 | W.PM.OBPNV1 ---
Date of service: 04/11/22 Time of Service: 07:42 Assessment and Plan Assessment and plan (1) Term delivered: Status: Acute Assessment and plan: A: Nml PPD#1 Hypertension, gestational vs chronic off to a good start Labor felt long and difficult, expresses satisfaction with her care Thyroid disease, takes levothyroxine P: CBC and TSH pending this morning Labetalol 200 mg PO BID to control BP Continue psych medications and levothyroxine Plans IUD insertion at 6 wks Pt desires to go home today when baby is released RTO @ 1 wk for BP and med check PP f/up at 2 & 6 wks Written instructions reviewed and given to pt (2) Hypertension affecting , delivered, current hospitalization: Status: Acute Assessment and plan: Continue Labetalol 200 mg PO BID RTO 1 wk to [facility] for BP check Sx of low & high BP reviewed with pt, she is to call if these sx occur Subjective Subjective Patient comments: No complaints, Pain well controlled, Tolerating diet and Bowel Movement Patient's Mood: tired, pleased [place] baby status: Doing well, Nursing well, Rooming in and Strong Bonding Observed [place] feeding status: Exclusively breast feeding Exam Physical Exam Vital signs: Temp Pulse Resp BP Pulse Ox 97.5 F L 68 16 157/74 H 98 04/10/22 12:06 04/10/22 12:06 04/10/22 12:06 04/10/22 12:06 04/10/22 12:06 Vital Signs Reviewed: Yes Narrative: Intermittent elevation in systolic BP noted prior to labetalol dosing, after which pt becomes normotensive. Constitutional Constitutional: no acute distress and obese HEENT Exam HEENT Exam: Normal Neck Exam Neck Exam: Normal Breast Exam Bilateral: Breast Exam: Normal and Soft Nipple Exam: Normal and Uninjured Comments: mild bruising noted on nipples, milk easily expressed Respiratory Exam Respiratory Exam: Normal Cardiovascular Exam Cardiovascular Exam: Normal Abdominal Exam Abdomen: Other (obese, soft, nontender) Fundal Exam Fundus: Below Umbilicus Rectal Exam Rectal Exam: Normal Exam Perineum: Intact and Normal Extremities Exam Extremity Exam: Normal, Full ROM and Warm to Touch Back/Spine/Pelvis Exam Back Exam: Normal Skin Exam Skin Exam: Normal Neurological Exam Neurological Exam: Normal Psychiatric Exam Psychiatric Exam: Normal (anxiety and bipolar disorder well controlled on current medications) Results Hemoglobin/Hematocrit: Hgb 13.2 g/dL (11.2-15.7) 04/08/22 10:10 Hct 36.9 % (36.0-46.0) 04/08/22 10:10
[2022-04-10] MEDS: Budesonide/Formoterol 160/4.5 6 GM 60 PUFF INH IH (19:57)
[2022-04-10] MEDS: lamoTRIgine 100 MG TAB 150 MG PO (21:54)
[2022-04-10] MEDS: Lurasidone 40 MG TAB PO (21:54)
[2022-04-11 06:22] LABS: HGB 11.6 g/dL (11.2-15.7); MCH 33.2 pg (27.0-33.0); MCHC 36.3 % (32.0-36.0); MCV 92 fL (80-95); MPV 11.8 fL (8.0-11.0); Platelet Count 189 10^3/uL (130-400); RBC 3.49 10^6/uL (3.93-5.22); RDW 12.4 % (11.7-14.6); RDW-SD 40.7 fL; WBC 8.94 10^3/uL (4.4-10.8)
[2022-04-11 08:12] LABS: TSH (W/Ref FT4) 5.33 uIU/mL (0.36-3.74)
[2022-04-11 08:39] LABS: FREE T4 0.74 ng/dL (0.76-1.46)
[2022-04-11] MEDS: Ibuprofen 600 MG TAB PO (08:42)
[2022-04-11] MEDS: Acetaminophen 325 MG TAB 650 MG PO (08:43)
[2022-04-11 08:48] VITALS: BP 123/74; PULSE 74; RESP 16; TEMP 36.9
[2022-04-11] MEDS: Acyclovir 400 MG TAB 800 MG PO (08:50)
[2022-04-11] MEDS: Labetalol 100 MG TAB 200 MG PO (08:51)
--- NOTE | 2022-04-11 10:35 | DSE_ITS ---
DS: Diagnosis Discharge Diagnosis (1) Term delivered: Status: Acute (2) Hypertension affecting , delivered, current hospitalization: Status: Acute Discharge Plan Disposition Patient Disposition: HOME Condition: Good Discharge Details Reason For Visit: Induction of Labor Admit Date/Time: 04/08/22 09:38 Admit Provider: Ibeth Christianson Attending Provider: Ibeth Christianson [facility]: IOL for hypertension in , 2 days of cervical ripening and one day of pitocin infusion, epidural anesthesia, , nml course, pt desires discharge at 24 hrs. Home Meds and New Rx's Prescriptions: No Action budesonide-formoterol [Symbicort] 160-4.5 mcg/actuation HFA aerosol inhaler 2 puff inhalation BID Qty: 10.2 12RF prenat.vits,parth,epq-pibh-gpxlg Tablet 1 tab PO DAILY Latuda 40 mg tablet 40 mg PO DAILY Qty: 30 0RF Rx Instructions: must administer with food (at least 350 calories) lamotrigine 150 mg tablet 150 mg PO DAILY Qty: 30 0RF Rx Instructions: at bedtime cholecalciferol (vitamin D3) 125 mcg (5,000 unit) capsule 125 mcg PO QWEEK Qty: 60 3RF Rx Instructions: take one elliott twice weekly albuterol sulfate [ProAir HFA] 90 mcg/actuation HFA aerosol inhaler 2 puff inhalation QID PRN (Reason: shortness of breath or wheezing) Qty: 6.7 4RF zfgdessipu-wdfpyshimx-jdi-cod [Fioricet with Codeine] 80-276-54-30 mg capsule 1 cap PO Q4H PRN (Reason: pain) Qty: 10 0RF acyclovir 800 mg tablet 800 mg PO DAILY Qty: 90 3RF levothyroxine 150 mcg capsule 150 mcg PO DAILY Qty: 30 3RF labetalol 100 mg Tablet 200 mg PO BID Qty: 60 1RF Discharge Instructions Additional Instructions: Please come in to the office in 1 week for a BP check, also keep your 2 & 6 wks appointments. We will plan on IUD insertion after your 6 week appointment, as well as a thyroid check (lab draw). Continue taking your current doses of medications, especially labetalol, until further advisement. If you experience increasing dizziness especially after taking labetalol, please call the office for an additional visit to assess the appropriate dose of medication. If you are able to discontinue taking protonix (ant-acid) without increased GERD symptoms now that you are no longer , please do so. Call any time for any concerns or questions. Stand Alone Forms: BC Instructions, BC Post Vaginal Deliver Activity:: Activity as Tolerated Equipment/Supplies:: No Equipment Needed Diet:: Normal Diet Discharge Orders Discharge Orders: Discharge Order (Routine); Ordered 04/11/22 Ordered By: Karen Ryan OB:DS Summary Summary Vaginal Delivery Method: Spontaneaous Episiotomy Description: None Laceration Description: None Laceration Extension: N/A Contraception Discussed Contraception Discussed: Yes Contraceptive Plan: IUD, Infant Gender-Baby A: Female weight: 7 lb 3.522 oz Status at Discharge Functional status at discharge: independent ambulation Overall status at discharge: patient is progressing back to baseline Mental Status: mental status grossly normal Speech and Movement: speech and movement normal and speech clear Mood: congruent mood Affect: normal affect Exam Physical Exam Vital signs: Temp Pulse Resp BP Pulse Ox 98.4 F 74 16 123/74 97 04/11/22 08:48 04/11/22 08:48 04/11/22 08:48 04/11/22 08:48 04/10/22 19:50 Constitutional Constitutional: no acute distress and obese HEENT Exam HEENT Exam: Normal Neck Exam Neck Exam: Normal Breast Exam Bilateral: Breast Exam: Normal and Soft Comments: mild bruising noted on nipples, milk easily expressed Respiratory Exam Respiratory Exam: Normal Cardiovascular Exam Cardiovascular Exam: Normal Abdominal Exam Abdomen: Other (obese, soft, nontender) Fundal Exam Fundus: Below Umbilicus Rectal Exam Rectal Exam: Normal Exam Perineum: Intact and Normal Extremities Exam Extremity Exam: Normal, Full ROM and Warm to Touch Back/Spine/Pelvis Exam Back Exam: Normal Skin Exam Skin Exam: Normal Neurological Exam Neurological Exam: Normal Psychiatric Exam Psychiatric Exam: Normal (anxiety and bipolar disorder well controlled on current medications) PFSH All Active Problems (Updated 04/10/22 @ 13:21 by Karen Ryan) Term delivered (Acute) Hypertension affecting , delivered, current hospitalization (Acute) Marijuana smoker (Acute) BMI 33.0-33.9,adult (Acute) Asthma (Chronic) using inhaler PRN. Anxiety (Chronic) Bipolar I disorder (Acute) Sarah's thyroiditis (Acute) diagnosed 2020 Medical History (Updated 04/10/22 @ 13:21 by Karen Ryan) 18 weeks gestation of Anti-TPO antibodies present COVID-19 affecting in second trimester Encounter for induction of labor Family history of von Willebrand disease cardiac arrhythmia Foot pain, right GBS (group B Streptococcus carrier), +RV culture, currently Genital herpes simplex virus (HSV) infection in mother affecting Group B streptococcal infection during History of abnormal cervical Pap smear History of hypertension required medications throughout second History of migraine Hypertension affecting in third trimester Hypotensive episode Low lying placenta nos or without hemorrhage, second trimester Threatened miscarriage in early Surgical History H/O dilation and curettage History of tonsillectomy Family History Son Von Willebrands disease Mother Asthma Cancer Heart disease Lung disease Allergies Autoimmune disease Father Asthma Heart disease Social History Smoking/Tobacco Use Status: Former Tobacco Use Quit Date: 05/16/21 Tobacco: How many years used: 11 Second Hand Exposure: Yes Smoking risk assessment performed?: Yes Alcohol Intake: never Drug use: Occasionally Substance use type: marijuana Details: No current tobacco use. No marijuana use currently. Sexually active: Yes Do you think of yourself as: straight/heterosexual Current gender identity: female Do you feel safe at home: Yes Do you feel safe in your relationship?: Yes Female Reproductive History Menstrual control method: none History History 5 Para 3 Hx # Term Pregnancies 3 Multiple births 0 Hx # Pregnancies 0 Ectopic pregnancies 0 AB induced 1 Hx Number of Living Children 3 AB spontaneous 0 Past Pregnancies Del. Date GA/Weeks # Preg Succ Route Wgt Sex Labor Lgth Anesth esia Location Prov Complic 10/15/07 39 No vaginal 8 lb 8 oz Male 24 hours regional [place] 10/11/10 39 No vaginal 9 lb 12 oz Male 16 regional M A hemorrhage 11/11/15 38 No vaginal 8 lb 11 oz Female 12 regional [place] Delivery Date: 10/15/07 Last Updated by: Ibeth Christianson CNM [place] Delivery Date: 10/11/10 Last Updated by: Ibeth Christianson CNM hemorrhage, blood transfusion, Jacinto. he has Von Willebrands Delivery Date: 11/11/15 Last Updated by: Ibeth Christianson CNM Leigh DS: Data Vitals/I&O Vitals and I&O: Vital Signs Temperature 98.4 F 04/11/22 08:48 Pulse 74 04/11/22 08:48 Pulse Rhythm Regular 04/11/22 09:24 Respiratory Rate 16 04/11/22 08:48 Blood Pressure 123/74 04/11/22 08:48 Blood Pressure Mean 90 04/11/22 08:48 Pulse Oximetry 97 04/10/22 19:50 Oxygen Delivery Method Room Air 04/08/22 10:07 Oxygen Flow Rate 0 04/08/22 10:07 Pain Level 6 04/10/22 15:25 Intake & Output 04/10/22 04/10/22 04/11/22 11:59 23:59 11:59 Intake Total 616.233 / 616.233 Output Total 1654 / 2004 350 / 2005 Balance -1038.767 / -1388.767 -350 / -1388.767 Weight 263 lb Intake: IV 616.233 / 616.233 Output: Urine 1550 / 1900 350 / 1900 Blood 105 / 105 Other: Urine Appearance Clear Clear Urine Odor None None Voiding Methods Toilet Toilet Data Completed and Pending Labs on day of discharge: Labs from last 24 hours 04/11/22 04/11/22 06:05 06:05 WBC 8.94 RBC 3.49 L Hgb 11.6 Hct 32.0 L MCV 92 MCH 33.2 H MCHC 36.3 H RDW 12.4 Plt Count 189 MPV 11.8 H TSH 5.33 H Free T4 0.74 L
== END 2022-04-11 10:30 | disposition home or self-care (01) | DRG 806 ==
PROVIDERS: Advanced Practice Midwife; Admitting Provider Advanced Practice Midwife; PCP Family Medicine; Visit Provider Advanced Practice Midwife
DX: O16.4 Unspecified maternal hypertension, complicating childbirth (principal); O98.32 Other infections with a predominantly sexual mode of transmission complicating childbirth; Z37.0 Single live birth; O99.354 Diseases of the nervous system complicating childbirth; Z3A.37 37 weeks gestation of pregnancy; O99.824 Streptococcus B carrier state complicating childbirth; O99.284 Endocrine, nutritional and metabolic diseases complicating childbirth; E06.3 Autoimmune thyroiditis; G43.909 Migraine, unspecified, not intractable, without status migrainosus; O99.344 Other mental disorders complicating childbirth; F41.8 Other specified anxiety disorders; F31.9 Bipolar disorder, unspecified; J45.909 Unspecified asthma, uncomplicated; O99.52 Diseases of the respiratory system complicating childbirth; O76 Abnormality in fetal heart rate and rhythm complicating labor and delivery
CPT/HCPCS: 36415; 85027; 86850; 86900; 86901; 87635; 84439; 84443; J2370; J2540; J3490

== ENCOUNTER 2022-04-25 01:43 | Outpatient (CLI) | payer MEDICAID, SELFPAY ==
[2022-04-25 16:33] LABS: TSH (W/Ref FT4) 0.67 uIU/mL (0.36-3.74)
== END 2022-04-25 01:44 | disposition home or self-care (01) ==
PROVIDERS: PCP Family Medicine; Visit Provider Internal Medicine Endocrinology, Diabetes & Metabolism
DX: O99.283 Endocrine, nutritional and metabolic diseases complicating pregnancy, third trimester (principal); E03.9 Hypothyroidism, unspecified; Z3A.39 39 weeks gestation of pregnancy
CPT/HCPCS: 36415; 84443

== ENCOUNTER 2022-06-28 18:14 | Outpatient (REF) | payer MEDICAID, SELFPAY | END 2022-06-28 18:15 | disposition home or self-care (01) | LOC: LBN 18:14 | PROVIDERS: PCP Family Medicine; Visit Provider Advanced Practice Midwife | DX: N89.8 Other specified noninflammatory disorders of vagina (principal) | CPT/HCPCS: 87480; 87510; 87660 ==

== ENCOUNTER 2023-05-06 11:23 | Emergency (ER) | payer MEDICAID, SELFPAY ==
[2023-05-06 11:36] VITALS: BP 151/95; PULSE 78; RESP 18; TEMP 36.6; O2SAT 97
--- NOTE | 2023-05-06 12:00 | DI.CT_ITS ---
Exam(s) CT ABDOMEN PELVIS W EXAM: CT ABDOMEN PELVIS W CLINICAL HISTORY: RLQ abd Pain. TECHNIQUE: Imaging Protocol: Axial computed tomography images with coronal and sagittal reformatted images were created and reviewed CONTRAST MATERIAL: Intravenous: Omnipaque-350 100cc Oral: None COMPARISON: No exams were available for comparison FINDINGS: VISUALIZED LUNG BASES: No nodules nor pleural effusions evident. ABDOMEN: There is no ascites. LIVER: There are no focal hepatic lesions evident. Mild hepatic steatosis noted. No dilated intrahe patic ducts. GALLBLADDER/BILIARY: No obvious gallbladder pathology. CBD is not dilated. PANCREAS: No evidence of pancreatic mass nor dilatation of the pancreatic duct. SPLEEN: Spleen is not enlarged. No obvious intrasplenic lesions. Splenic and portal veins are paten t. ADRENALS: There are no significant adrenal masses. KIDNEYS:No cysts evident. No solid renal masses. No calculi nor hydronephrosis.. ABDOMINAL AORTA: Abdominal aorta is not enlarged. LYMPH NODES:There is no retroperitoneal nor paraaortic adenopathy. ABDOMINAL WALL: No evidence of significant anterior abdominal wall nor inguinal hernia. GI: There is no evidence of bowel obstruction, free air, nor abscess. Calcific densities are noted in the base of the cecum which are probably undigested pills. No eviden ce of appendicitis. PELVIS: GI: No evidence of appendicitis.No evidence of sigmoid diverticulitis. LYMPH NODES: There is no intrapelvic nor inguinal adenopathy. REPRODUCTIVE: IUD is in satisfactory position in the endometrial canal. No obvious abnormalities of the uterus. No abnormal adnexal masses and no free fluid in the pelvis. URINARY BLADDER: Collapsed and difficult to assess. OSSEOUS: No fractures and no significant osseous lesions. IMPRESSION: 1. Calcific densities noted in the inferior aspect of the cecum which may represent digested pills. 2. No evidence of appendicitis nor diverticulitis. 3. IUD is noted to be in satisfactory position in the endometrial canal. Uterus appears retroflexed. Normal adnexal masses and no free fluid in the pelvis. 4. Kidneys unremarkable. No hydronephrosis. Called by myself to ER provider. RADIATION DOSE DELIVERED: 1,416.47mGy.cm Total DLP DATA REPOSITORY: All CT scans at this facility are submitted to the National Radiology Data Registry (NRDR) Dose Index Registry (DIR) with the [employer] (ACR). RADIATION OPTIMIZATION: All CT scans at this facility use at least one of these dose optimization te chniques: automated exposure control; mA and/or kV adjustment per patient size (includes targeted exa ms where dose is matched to clinical indication); or iterative reconstruction.
--- NOTE | 2023-05-06 12:48 | ED.GENADUL_ITS ---
Discharge Plan Disposition Patient Disposition: Home Condition: Stable Discharge Details Clinical Impression: Abdominal pain Primary Care Provider: ALKA BONILLA ED Provider: Josseline Diggs Home Meds and New Rx's Prescriptions: New ondansetron 4 mg tablet,disintegrating 4 mg PO Q8H PRN (Reason: nausea and vomiting) 4 Days Qty: 9 0RF Rx Instructions: Take 1 tablet up to 3 times daily as needed for nausea and vomiting 20 minutes prior to meals. No Action labetalol 100 mg tablet 200 mg PO BID Qty: 60 1RF levothyroxine 150 mcg capsule 137 mcg PO DAILY Latuda 40 mg tablet 40 mg PO DAILY Qty: 30 0RF Rx Instructions: must administer with food (at least 350 calories) lamotrigine 150 mg tablet 150 mg PO DAILY Qty: 30 0RF Rx Instructions: at bedtime cholecalciferol (vitamin D3) 125 mcg (5,000 unit) capsule 125 mcg PO QWEEK Qty: 60 3RF Rx Instructions: take one elliott twice weekly Mirena 20 mcg/24 hours (7 yrs) 52 mg intrauterine device 1 device intrauterine ONCE Rx Instructions: as a single dose multivitamin Tablet 1 tab PO DAILY albuterol sulfate [ProAir HFA] 90 mcg/actuation HFA aerosol inhaler 2 puff inhalation QID PRN (Reason: shortness of breath or wheezing) Qty: 6.7 4RF acyclovir 800 mg tablet 800 mg PO DAILY Qty: 90 3RF metronidazole 500 mg tablet 500 mg PO BID Qty: 14 0RF Discharge Instructions Instructions: Abdominal Pain (ED) Additional Instructions: At this time the CT does not show any evidence of appendicitis or problem with your gallbladder. Your labs are largely within normal limits. Please follow-up with your PCP in the next 2 to 3 days. Practice a clear liquid diet and a bland diet for the next 72 hours. Stay away from anything fried fatty spicy or dairy. Use the nausea medication 20 to 30 minutes prior to eating or drinking anything as directed. If continued pain you may need to get an ultrasound of your gallbladder. Today there is no indication of serious infection. Follow up with primary care provider in 3-5 days. Return to ED sooner if any worsening pain, fever chills, unable to keep medications down, diarrhea or concerns. Increase oral fluids. Please take Tylenol or Ibuprofen with food every 4-6 hours as needed for pain and swelling. Discharge Data Discharge Date/Time-TO BE ENTERED AT DEPARTURE: 05/06/23 16:46 Medical Decision Making 33-year-old female presents to the ER after being seen by [facility] with a chief complaint of right upper and lower quadrant abdominal pain which began on Friday. She reports she did have an episode of emesis yesterday. She does report chills. Denies any fever. She reports urinary frequency no dysuria or problems urinating. Denies any vaginal bleeding. No other associated symptoms at this time. She does have a history surgically of D&C, tonsillectomy, she does have a 1-year-old she is not at this time. Not breast-feeding. Other past medical history includes Sarah's thyroiditis, bipolar 1, anxiety asthma she is a daily smoker, she does have an IUD. Abdominal Pain workup ordered which shows no leukocytosis, no left shift, CMP largely WNL, slightly elevated Glucose at 115, and ALT at 61. CT WNL, no evidence of appendicitis, no evidence of cholecystitis, however if symptoms persist patient may need a dedicated US of her gallbladder. Upon re-evaluation patient states her OBGYN provider called to sy she has BV and is placing her on antibiotics. Discussed follow up care and strict return instructions. She verbalized understanding and was given written instructions. Patient given prescription for Zofran prn nausea. The majority of this chart was dictated using [employer] dictation system, please disregard any typos or oddities of phrase. Medical Records Medical records reviewed: Yes I reviewed the patient's medical records. Lab Data Lab results reviewed: Yes I reviewed the patient's lab results. Labs: Laboratory Tests Range/Units 05/06/23 05/06/23 12:55 12:55 WBC (4.4-10.8) 10^3/uL 6.68 RBC (3.93-5.22) 10^6/uL 4.37 Hgb (11.2-15.7) g/dL 14.5 Hct (36.0-46.0) % 40.6 MCV (80-95) fL 93 MCH (27.0-33.0) pg 33.2 H MCHC (32.0-36.0) % 35.7 RDW (11.7-14.6) % 11.9 Plt Count (130-400) 10^3/uL 231 MPV (8.0-11.0) fL 10.3 Immature Gran % 0.9 Neutrophils % 50.2 Lymphocytes % 28.9 Monocytes % 9.9 Eosinophils % 9.4 Basophils % 0.7 Nucleated RBC % (0.0-0.3) % 0.0 Absolute Neutrophils (1.2-6.7) 10^3/uL 3.35 Absolute Lymphocytes (1.2-3.4) 10^3/uL 1.93 Absolute Monocytes (0.1-0.8) 10^3/uL 0.66 Absolute Eosinophils (0.0-0.7) 10^3/uL 0.63 Absolute Basophils (0.0-0.2) 10^3/uL 0.05 RBC Morphology Normal Sodium (136-145) mmol/L 137 Potassium (3.5-5.1) mmol/L 4.0 Chloride (98-107) mmol/L 103 Carbon Dioxide (21.0-32.0) mmol/L 27.0 Anion Gap (3-11) mmol/L 7.0 BUN (7-18) mg/dL 8 Creatinine (0.55-1.02) mg/dL 0.8 Est GFR (CKD-EPI 2020) (mL/min/1.73m2) 99.09 Glucose (74-106) mg/dL 115 H Calcium (8.5-10.1) mg/dL 8.6 Magnesium (1.8-2.4) mg/dL 1.9 Total Bilirubin (0.2-1.0) mg/dL 0.6 AST (15-37) U/L 30 ALT (14-59) U/L 61 H Alkaline Phosphatase (46-116) U/L 61 Total Protein (6.4-8.2) g/dL 7.2 Albumin (3.4-5.0) g/dL 3.8 HPI General Mode of arrival: ambulatory . Date/Time Provider Initiated Documentation: 05/06/23 11:53 . Limitations to Documentation: no limitations . Information obtained by: patient, RN notes reviewed and old records reviewed . HPI Narrative: 33-year-old female presents to the ER after being seen by women[facility] with a chief complaint of right upper and lower quadrant abdominal pain which began on Friday. She reports she did have an episode of emesis yesterday. She does report chills. Denies any fever. She reports urinary frequency no dysuria or problems urinating. Denies any vaginal bleeding. No other associated symptoms at this time. She does have a history surgically of D&C, tonsillectomy, she does have a 1-year-old she is not at this time. Not breast-feeding. Other past medical history includes Sarah's thyroiditis, bipolar 1, anxiety asthma she is a daily smoker, she does have an IUD. Related Data Home Medications Medication Instructions Recorded Confirmed lamotrigine 150 mg tablet 150 mg PO DAILY #30 tabs 08/28/21 05/06/23 lurasidone 40 mg tablet (Latuda) 40 mg PO DAILY #30 tabs 08/28/21 05/06/23 albuterol sulfate 90 mcg/actuation 2 puff inhalation QID PRN 12/25/21 05/06/23 aerosol inhaler (ProAir HFA) shortness of breath or wheezing #6.7 grams cholecalciferol (vitamin D3) 125 125 mcg PO QWEEK #60 caps 01/03/22 05/06/23 mcg (5,000 unit) capsule acyclovir 800 mg tablet 800 mg PO DAILY #90 tabs 04/11/22 05/06/23 labetalol 100 mg tablet 200 mg PO BID #60 tabs 04/18/22 05/06/23 levothyroxine 150 mcg capsule 137 mcg PO DAILY 05/22/22 05/06/23 levonorgestrel 21 mcg/24 hours (8 1 device intrauterine ONCE 05/24/22 05/06/23 yrs) 52 mg intrauterine device (Mirena) metronidazole 500 mg tablet 500 mg PO BID #14 tabs 05/06/23 multivitamin 1 tab PO DAILY 05/06/23 05/06/23 ondansetron 4 mg disintegrating 4 mg PO Q8H PRN nausea and 05/06/23 tablet vomiting 4 days #9 tabs Previous Rx's Medication Instructions Recorded lamotrigine 150 mg tablet 150 mg PO DAILY #30 tabs 08/28/21 lurasidone 40 mg tablet (Latuda) 40 mg PO DAILY #30 tabs 08/28/21 albuterol sulfate 90 mcg/actuation 2 puff inhalation QID PRN 12/25/21 aerosol inhaler (ProAir HFA) shortness of breath or wheezing #6.7 grams cholecalciferol (vitamin D3) 125 125 mcg PO QWEEK #60 caps 01/03/22 mcg (5,000 unit) capsule acyclovir 800 mg tablet 800 mg PO DAILY #90 tabs 04/11/22 labetalol 100 mg tablet 200 mg PO BID #60 tabs 04/18/22 metronidazole 500 mg tablet 500 mg PO BID #14 tabs 05/06/23 ondansetron 4 mg disintegrating 4 mg PO Q8H PRN nausea and 05/06/23 tablet vomiting 4 days #9 tabs Allergies Allergy/AdvReac Type Severity Reaction Status Date / Time No Known Allergies Allergy Verified 05/06/23 10:37 General Stated Complaint: Abd Prob COREY: 3 Review of Systems All systems reviewed & are unremarkable except as noted in HPI and below Gastrointestinal Gastrointestinal: Reports abdominal pain PFSH All Active Problems (Updated 05/06/23 @ 16:11 by Josseline Diggs NP) Abdominal pain (Acute) IUD surveillance (Acute) Pelvic pain (Acute) Vaginal discharge (Acute) Contraceptive device, intrauterine (Acute) Chronic hypertension (Acute) depression (Acute) Hypothyroidism (Chronic) Care and examination of lactating mother (Acute) Marijuana smoker (Acute) BMI 33.0-33.9,adult (Acute) Asthma (Chronic) using inhaler PRN. Anxiety (Chronic) Bipolar I disorder (Acute) Sarah's thyroiditis (Acute) diagnosed 2020 Medical History Anti-TPO antibodies present Family history of von Willebrand disease cardiac arrhythmia Foot pain, right Genital herpes simplex virus (HSV) infection in mother affecting Gestational hypertension History of abnormal cervical Pap smear History of hypertension required medications throughout second History of migraine Hypertension affecting in third trimester Hypotensive episode Nipple pain Presence of IUD Surgical History H/O dilation and curettage History of tonsillectomy Family History Son Von Willebrands disease Mother Asthma Cancer Heart disease Lung disease Allergies Autoimmune disease Father Asthma Heart disease Social History Smoking/Tobacco Use Status: Current-Occasional Tobacco Type: e-cigarettes Tobacco: How many years used: 11 Second Hand Exposure: Yes Smoking risk assessment performed?: Yes Alcohol Intake: never Drug use: Occasionally Substance use type: marijuana Details: . Sexually active: Yes Do you think of yourself as: straight/heterosexual Current gender identity: female Do you feel safe at home: Yes Do you feel safe in your relationship?: Yes Female Reproductive History Menstrual control method: none History History 5 Para 4 Hx # Term Pregnancies 4 Multiple births 0 Hx # Pregnancies 0 Ectopic pregnancies 0 AB induced 1 Hx Number of Living Children 4 AB spontaneous 0 Past Pregnancies Del. Date GA/Weeks # Preg Succ Route Wgt Sex Labor Lgth Anesth esia Location Prov Complic 10/15/07 39 No vaginal 3855.535 g Male 24 hours regional [place] 10/11/10 39 No vaginal 4422.526 g Male 16 regional M A hemorrhage 11/11/15 38 No vaginal 3940.584 g Female 12 regional [place] 04/10/22 37 No Yes vaginal 3274.37 g Female 42hrs 36min [facility] [place] Delivery Date: 10/15/07 Last Updated by: Ibeth Christianson CNM Valent[place] Delivery Date: 10/11/10 Last Updated by: Ibeth Christianson CNM hemorrhage, blood transfusion, Jacinto. he has Von Willebrands Delivery Date: 11/11/15 Last Updated by: Ibeth Christianson CNM [place] Delivery Date: 04/10/22 Last Updated by: AMITA Perdomo; induced Hypertension Exam Narrative Exam Narrative: Constitutional: Alert and oriented x3. Appears stated age. Obese body habitus. Head: Normocephalic, no trauma. Eyes: Pupils PERRL, Red reflex noted, EOM's intact. Eyelids symmetrical without lesions, discharge, or swelling. Chest: RRR, Normal S1, S2, distal pulses intact. Resp: Lungs clear to auscultation bilaterally, no wheezes, rales, or rhonchi. Abdomen: Soft, non-distended, hypoactive bowel sounds all 4 quadrants, tenderness with palpation in the right upper quadrant. Musculoskeletal: 5/5 strength to all four extremities. Skin: No suspicious rashes or lesions. Capillary refill less than 2 sec. Neurologic: Cranial nerves II-XII intact. Alert and oriented x 3. Motor: No deficits noted. Hematologic/Lymphatic: No ecchymosis, no lymphadenopathy. Discharge Course Vital Signs Vital signs: Vital Signs Temperature 36.6 C 05/06/23 11:36 Pulse 78 05/06/23 11:36 Respiratory Rate 18 05/06/23 11:36 Blood Pressure 151/95 H 05/06/23 11:36 Pulse Oximetry 97 05/06/23 11:36 Temperature 36.6 C 05/06/23 11:36 Pulse 78 05/06/23 11:36 Respiratory Rate 18 05/06/23 11:36 Respiratory Effort Normal, Non-Labored 05/06/23 12:24 Blood Pressure 151/95 H 05/06/23 11:36 Blood Pressure Position Sitting 05/06/23 11:36 Pulse Oximetry 97 05/06/23 11:36 Oxygen Delivery Method Room Air 05/06/23 11:36 Oxygen Flow Rate 0 05/06/23 11:36
[2023-05-06 13:01] LABS: Abs Immature Grans 0.06 10^3/uL (0.0-0.06); Absolute Basophil Count 0.05 10^3/uL (0.0-0.2); Absolute Eosinophil Count 0.63 10^3/uL (0.0-0.7); Absolute Lymphocyte Count 1.93 10^3/uL (1.2-3.4); Absolute Monocyte Count 0.66 10^3/uL (0.1-0.8); Absolute Neutrophil Count 3.35 10^3/uL (1.2-6.7); Basophils % 0.7; Eosinophils % 9.4; HCT 40.6 % (36.0-46.0); HGB 14.5 g/dL (11.2-15.7); Immature Grans % 0.9; Lymphocytes % 28.9; MCH 33.2 pg (27.0-33.0); MCHC 35.7 % (32.0-36.0); MCV 93 fL (80-95); MPV 10.3 fL (8.0-11.0); Monocytes % 9.9; Neutrophils % 50.2; Platelet Count 231 10^3/uL (130-400); RBC 4.37 10^6/uL (3.93-5.22); RDW 11.9 % (11.7-14.6); RDW-SD 41.1 fL; WBC 6.68 10^3/uL (4.4-10.8)
[2023-05-06] MEDS: MORPHine 4 MG/ML SYR IVP (13:13)
[2023-05-06] MEDS: Ondansetron 4 MG/2 ML VIAL IVP (13:14)
[2023-05-06] MEDS: Normal Saline 1,000 ML 1000 ML IV (13:14)
[2023-05-06 13:16] LABS: ALT 61 U/L (14-59); AST 30 U/L (15-37); Albumin 3.8 g/dL (3.4-5.0); Alkaline Phosphatase 61 U/L (46-116); BUN 8 mg/dL (7-18); Bilirubin, Total 0.6 mg/dL (0.2-1.0); CREATININE 0.8 mg/dL (0.55-1.02); Calcium 8.6 mg/dL (8.5-10.1); Chloride 103 mmol/L (98-107); Estimated GFR 99.09 (mL/min/1.73m2); Glucose 115 mg/dL (74-106); Magnesium 1.9 mg/dL (1.8-2.4); Sodium 137 mmol/L (136-145); Total Protein 7.2 g/dL (6.4-8.2)
[2023-05-06 13:29] LABS: Diff Comment Agrees w/ Instrument; RBC Morphology Normal
[2023-05-06] MEDS: Normal Saline - Diluent 50 ML VIAL IJ (14:46)
[2023-05-06] MEDS: Normal Saline Flush 10 ML SYR IVP (14:47)
[2023-05-06] MEDS: Omnipaque 350 MG/ML 100 ML BTL IJ (14:47)
[2023-05-06] MEDS: Ondansetron O.D.T. 4 MG TABEF, 3 TABS/BTL PO (16:45)
[2023-05-06 16:46] VITALS: BP 135/80; PULSE 80; RESP 20; TEMP 36.8; O2SAT 98
== END 2023-05-06 16:46 | disposition home or self-care (01) ==
PROVIDERS: Emergency Provider Registered Nurse Emergency; PCP Family Medicine
DX: R10.9 Unspecified abdominal pain (principal)
CPT/HCPCS: 80053; 96361; 96374; 96375; 99285; 74177; 83735; 85025; 99284; J2270; J2405; J3490

== ENCOUNTER 2023-05-06 13:00 | Outpatient (REF) | payer MEDICAID, SELFPAY | END 2023-05-06 13:01 | disposition home or self-care (01) | LOC: LBN 13:00 | PROVIDERS: PCP Family Medicine; Visit Provider Advanced Practice Midwife | DX: N89.8 Other specified noninflammatory disorders of vagina (principal); N76.0 Acute vaginitis | CPT/HCPCS: 87480; 87510; 87660 ==

== ENCOUNTER 2023-12-02 14:20 | Outpatient (REF) | payer MEDICAID, SELFPAY | END 2023-12-02 14:21 | disposition home or self-care (01) | LOC: LBN 14:20 | PROVIDERS: PCP Family Medicine; Visit Provider Advanced Practice Midwife | DX: N89.8 Other specified noninflammatory disorders of vagina (principal) | CPT/HCPCS: 87480; 87510; 87660 ==

== ENCOUNTER 2025-01-13 11:21 | Outpatient (REF) | payer MEDICAID, SELFPAY ==
--- NOTE | 2025-01-13 11:00 | PAPFT_PTH ---
PATIENT: More Denny LOC: [facility] U#:[id number] AGE/SX: 34/F ROOM: RE01/13/[address]: Sheri Acosta DO : 1990 BED: DIS: 01/13/2025 SPEC #: [id number] RECD: 01/13/25 12:53 STATUS: SOUAndre REQ #: [id number] JESUS MANUEL: 01/13/25 11:[address]: Sheri Acosta [facility]PT[facility] Cytology RECD BY: Vielka Ya ENTERED: 01/13/25 12:53 SP TYPE: PAPFT OTHR DR: ALKA RODRIGUEZ MD Tissues: 1 - CX/ENDOCX FOR PAP SMEARS Procedures: PAP THIN PREP/UVM Screening HPV DNA PROBE Comments: [id number] (HPV 16 & 18/45) (CHLAMYDIA/GC)
[2025-01-14 12:02] LABS: Chlamydia Result Negative (Negative); GC Result Negative (Negative)
== END 2025-01-13 11:22 | disposition home or self-care (01) ==
LOC: LBN 11:21
PROVIDERS: PCP Family Medicine; Visit Provider Obstetrics & Gynecology
DX: N89.8 Other specified noninflammatory disorders of vagina (principal); Z12.4 Encounter for screening for malignant neoplasm of cervix; N76.0 Acute vaginitis
CPT/HCPCS: 87491; 87591; 88142; 87480; 87510; 87624; 87660